=== PATIENT | female | born 1950 | race Caucasian/White ===

== ENCOUNTER 2017-04-25 09:56 | Outpatient (CLI) | payer OTHER ==
[2016-01-07 16:01] VITALS: BMI 37.8
--- NOTE | 2017-04-27 09:23 | MAMMO ---
EXAM: Bilateral digital screening mammogram Comparison: Bilateral mammogram 03/01/2016 History: Screening Findings: MLO and CC views of bilateral breasts demonstrate predominately fatty replaced breast par enchyma. Stable benign appearing bilateral breast nodules and bilateral breast lymph nodes. There a re no developing masses and no suspicious microcalcifications. Impression: Benign stable mammogram. Recommend followup routine screening mammography in 1 year. BIRADS 2
== END 2017-04-25 09:57 | disposition home or self-care (01) ==
LOC: RAD 09:56
PROVIDERS: ATTEND Internal Medicine
DX: Z12.31 Encounter for screening mammogram for malignant neoplasm of breast (principal)

== ENCOUNTER 2018-03-14 14:20 | Outpatient (POV) ==
[2016-01-07 16:01] VITALS: BMI 37.8
== END 2018-03-14 17:00 ==
LOC: OUTPT 14:20
PROVIDERS: ATTEND Otolaryngology
DX: H91.90 Unspecified hearing loss, unspecified ear (principal)

== ENCOUNTER 2018-03-28 08:45 | Outpatient (POV) | payer OTHER ==
[2016-01-07 16:01] VITALS: BMI 37.8
== END 2018-03-28 17:00 ==
LOC: OUTPT 08:45
PROVIDERS: ATTEND Otolaryngology
DX: H91.90 Unspecified hearing loss, unspecified ear (principal); H69.90 Unspecified Eustachian tube disorder, unspecified ear

== ENCOUNTER 2018-04-25 09:49 | Outpatient (CLI) ==
[2016-01-07 16:01] VITALS: BMI 37.8
--- NOTE | 2018-04-26 11:31 | MAMMO ---
EXAM: Bilateral digital screening mammogram (2-D and 3-D) History: Screening Comparison: Bilateral mammogram 04/25/2017 Findings: MLO and CC views of bilateral breasts demonstrate predominately fatty replaced breast pare nchyma. CAD was reviewed by the radiologist. Tomosynthesis was performed. Stable benign bilateral b reast nodules and lymph nodes. There are no developing masses. No suspicious microcalcifications an d no architectural distortions Impression: Benign stable mammogram. Recommend followup routine screening mammography in 1 year. BIRADS 2
== END 2018-04-25 09:50 | disposition home or self-care (01) ==
LOC: RAD 09:49
PROVIDERS: ATTEND Internal Medicine
DX: Z12.31 Encounter for screening mammogram for malignant neoplasm of breast (principal)
CPT/HCPCS: 77067

== ENCOUNTER 2019-01-16 09:15 | Outpatient (CLI) ==
[2016-01-07 16:01] VITALS: BMI 37.8
--- NOTE | 2019-01-16 09:56 | US ---
EXAM: ULTRASOUND LOWER EXTREMITY VENOUS DOPPLER EXAM HISTORY: Leg pain and swelling. FINDINGS: Left lower extremity venous Doppler exam. Real time strong-scale, Doppler spectral analysis and color-flow Doppler imaging performed. The veins targeted for evaluation include the common femo ral, greater saphenous, profundus, femoral, popliteal, peroneal, anterior tibial and posterior tibial . The evaluated veins demonstrated normal spontaneous flow and compression without evidence of thr ombosis. IMPRESSION: No venous thrombosis identified within the areas evaluated.
== END 2019-01-16 09:16 | disposition home or self-care (01) ==
LOC: RAD 09:15
PROVIDERS: ATTEND Internal Medicine
DX: M79.605 Pain in left leg (principal); M79.89 Other specified soft tissue disorders

== ENCOUNTER 2019-04-12 09:27 | Outpatient (CLI) ==
[2016-01-07 16:01] VITALS: BMI 37.8
--- NOTE | 2019-04-12 15:03 | DI ---
EXAM: KUB HISTORY: Back pain FINDINGS / IMPRESSION: Bowel gas pattern is within normal limits. No excessive fecal retention. T he rectal vault is clear. Organ shadows are within the limits. No suspicious calcifications or acut e bony finding.
== END 2019-04-12 09:28 | disposition home or self-care (01) ==
LOC: RAD 09:27
PROVIDERS: ATTEND Internal Medicine
DX: M54.9 Dorsalgia, unspecified (principal)

== ENCOUNTER 2019-04-30 08:20 | Outpatient (CLI) ==
[2016-01-07 16:01] VITALS: BMI 37.8
--- NOTE | 2019-04-30 09:37 | MAMMO ---
EXAM: Bilateral digital screening mammogram (2-D and 3-D) History: Screening Comparison: Bilateral mammogram 04/25/2018 Findings: MLO and CC views of bilateral breasts demonstrate predominately fatty replaced breast pare nchyma. CAD was reviewed by the radiologist. Tomosynthesis was performed. Stable benign bilateral breast nodules and lymph nodes. There are no developing masses, no suspicious microcalcifications an d no architectural distortions. Impression: Benign stable mammogram. Recommend followup routine screening mammography in 1 year. BI-RADS 2, benign
== END 2019-04-30 08:21 | disposition home or self-care (01) ==
LOC: RAD 08:20
PROVIDERS: ATTEND Internal Medicine
DX: Z12.31 Encounter for screening mammogram for malignant neoplasm of breast (principal)

== ENCOUNTER 2019-07-04 09:00 | Outpatient (RCR) ==
[2016-01-07 16:01] VITALS: BMI 37.8
--- NOTE | 2019-06-15 11:46 | RS.OPPTDN ---
Subjective Date of Note: 06/15/19 Visit #: 4 Number of visits approved by Insurance: na Date of Evaluation: 06/06/19 Payer Source: MEDICARE Treatment Diagnosis: Low back pain Current Subjective/complaints:: Patient reports treatments seem to be helping reduce her pain level. States she is working on HEP. Pain Assessment - Pain Description Pain Location: lowback Current Pain Intensity: 6-7/10 prior to, 4-5/10 following treatment - Treatment Modality: Electrical Stim Unattended Parameters/Method Applied: [id number] HVGC with right lowback current to 210p.v. and left to 175p.v. Patient Position: Sitting - Heat/Cryotherapy Treatment: Hot Pack (with Estim) Interventions - Exercise/Activities/Manual Therapy Exercises/Activities: Assisted with stretching of bilateral hamstrings, SKTC, DKTC, LTR, and heel cords. Limited piriformis stretching. Isometric glut sets, isometric hip flexion, and pelvic tilts. Began green theraband for resisted scap retraction. Total minutes of Exercise: 18mins Manual Therapy: NA HOME EXERCISE PROGRAM: HS, SKTC, DKTC, and LTR stretching. Isometric hip add, glut sets, pelvic tilts. Isometric hip flexion. Green theraband for resisted scap retraction. - Charges Timed Code Treatment Minutes: 18mins Total Treatment Time: 40mins Procedures billed for this date of service:: HP, Estim unattended, EX Assessment: Patient reporting progress with pain reduction. Patient Education: Body/Joint mechanics, Home Exercise Program Patient demonstrates compliance with HEP?: Yes Short Term Goals Goal #1: Pt independent in basic HEP. Goal to be met by: 06/21/19 Progress towards Goal:: Partially Met Goal #2: Muscle tone at lumbar paraspinals decreased to minimal. Goal to be met by: 06/21/19 Progress towards Goal:: Progressing Goal #3: Low back pain less than 7/10. Goal to be met by: 06/21/19 Progress towards Goal:: Progressing Goal #4: SLR bilaterally 45-50 degrees. Goal to be met by: 06/21/19 Value Stream Leader Goals Goal #1: Pt knows HEP and to continue ex's to maintain functional level at D/c. Goal to be met by: 07/27/19 Goal #2: Score on Oswestry LBP scale improved to 48. Goal to be met by: 07/27/19 Goal #3: Pt able to ambulate community distances with minimal low back pain. Goal to be met by: 07/27/19 Goal #4: Pt to perform light ADL's at home without low back pain. Goal to be met by: 07/27/19 Plan Dates of Value Stream Leader Goals: 07/27/19 Expiration date of current Insurance Approval:: 07/27/19 PLAN: Continue modalities and progress exercise to reduce pain and increase functional activity level.
--- NOTE | 2019-06-19 10:41 | RS.OPPTDN ---
Subjective Date of Note: 06/19/19 Visit #: 5 Number of visits approved by Insurance: na Date of Evaluation: 06/06/19 Payer Source: MEDICARE Treatment Diagnosis: Low back pain Current Subjective/complaints:: Patient reports seeing improvement in back pain since attending therapy. States she is working on HEP and is able to do more light activites in her home. Pain Assessment - Pain Description Pain Location: lowback and hips Current Pain Intensity: moderate - Treatment Modality: Electrical Stim Unattended Parameters/Method Applied: [id number] HVGC to 140p.v. with 4 large pads to each lumbar paraspinals with HP prior to EX. Patient Position: Sitting - Heat/Cryotherapy Treatment: Hot Pack (with Estim ) Interventions - Exercise/Activities/Manual Therapy Exercises/Activities: Assisted with stretching of bilateral hamstrings, SKTC, DKTC, LTR, heel cords, and piriformis stretching. Isometric glut sets, isometric hip flexion, and pelvic tilts. Alt hip flexion with abd sets. Reveiewd resisted scap retraction with green theraband. Patient given copy of HEP. Total minutes of Exercise: 18mins Manual Therapy: NA HOME EXERCISE PROGRAM: HS, SKTC, DKTC, and LTR stretching. Isometric hip add, glut sets, pelvic tilts. Isometric hip flexion. Green theraband for resisted scap retraction. Alt hip flexion with abd sets. - Charges Timed Code Treatment Minutes: 18mins Total Treatment Time: 42mins Procedures billed for this date of service:: HP, Estim unattended, EX Assessment: Patient reports improvement in pain and ability to perform light daily activities. Patient Education: Body/Joint mechanics, Home Exercise Program Patient demonstrates compliance with HEP?: Yes Short Term Goals Goal #1: Pt independent in basic HEP. Goal to be met by: 06/21/19 Progress towards Goal:: Met Goal #2: Muscle tone at lumbar paraspinals decreased to minimal. Goal to be met by: 06/21/19 Progress towards Goal:: Progressing Goal #3: Low back pain less than 7/10. Goal to be met by: 06/21/19 Progress towards Goal:: Progressing Goal #4: SLR bilaterally 45-50 degrees. Goal to be met by: 06/21/19 Sandwich Maker Goals Goal #1: Pt knows HEP and to continue ex's to maintain functional level at D/c. Goal to be met by: 07/27/19 Progress towards goal: Progressing Goal #2: Score on Oswestry LBP scale improved to 48. Goal to be met by: 07/27/19 Goal #3: Pt able to ambulate community distances with minimal low back pain. Goal to be met by: 07/27/19 Progress towards goal: Progressing Goal #4: Pt to perform light ADL's at home without low back pain. Goal to be met by: 07/27/19 Plan Dates of Sandwich Maker Goals: 07/27/19 Expiration date of current Insurance Approval:: 07/27/19 PLAN: Continue modalites and progress exercise to reduce pain and increase functional activity level.
--- NOTE | 2019-06-22 11:22 | RS.OPPTDN ---
Subjective Date of Note: 06/22/19 Visit #: 6 Number of visits approved by Insurance: na Date of Evaluation: 06/06/19 Payer Source: MEDICARE Treatment Diagnosis: Low back pain Current Subjective/complaints:: Patient reports some increase in back pain today. States she has been doing better overall, and is doing more light activities around her home. Pain Assessment - Pain Description Pain Location: lowback Current Pain Intensity: moderate, mild following treatment - Treatment Modality: Electrical Stim Unattended Parameters/Method Applied: [id number] HVGC to 175p.v. with 4 large pads to each lumbar parapsinal with HP prior to EX. Patient Position: Sitting - Heat/Cryotherapy Treatment: Hot Pack (with estim) Interventions - Exercise/Activities/Manual Therapy Exercises/Activities: Assisted with stretching of bilateral hamstrings, SKTC, DKTC, LTR, heel cords, and piriformis stretching. Isometric hip flexion and pelvic tilts. Alt hip flexion with abd sets. Began resisted hip abd in hook- lying with blue theraband. Patient given blue tband for HEP. Total minutes of Exercise: 19mins Manual Therapy: NA HOME EXERCISE PROGRAM: HS, SKTC, DKTC, and LTR stretching. Isometric hip add, glut sets, pelvic tilts. Isometric hip flexion. Green theraband for resisted scap retraction. Alt hip flexion with abd sets. - Charges Timed Code Treatment Minutes: 19mins Total Treatment Time: 43mins Procedures billed for this date of service:: HP, Estim unattended, EX Assessment: Patient has some increased discomfort today, but consistently reports progress. She has reported an increase in her ability to perform light daily activities around her home. This is important as the patient lives alone. Patient Education: Home Exercise Program, Activity Modification Comments: Patient education of safety with ADL's and light lifting. Patient demonstrates compliance with HEP?: Yes Short Term Goals Goal #1: Pt independent in basic HEP. Goal to be met by: 06/21/19 Progress towards Goal:: Met Goal #2: Muscle tone at lumbar paraspinals decreased to minimal. Goal to be met by: 06/21/19 Progress towards Goal:: Progressing Goal #3: Low back pain less than 7/10. Goal to be met by: 06/21/19 Progress towards Goal:: Partially Met Goal #4: SLR bilaterally 45-50 degrees. Goal to be met by: 06/21/19 Recordist Goals Goal #1: Pt knows HEP and to continue ex's to maintain functional level at D/c. Goal to be met by: 07/27/19 Progress towards goal: Progressing Goal #2: Score on Oswestry LBP scale improved to 48. Goal to be met by: 07/27/19 Goal #3: Pt able to ambulate community distances with minimal low back pain. Goal to be met by: 07/27/19 Progress towards goal: Progressing Goal #4: Pt to perform light ADL's at home without low back pain. Goal to be met by: 07/27/19 Plan Dates of Mcc Goals: 07/27/19 Expiration date of current Insurance Approval:: 07/27/19 PLAN: Continue modalities and progress exercise to reduce pain and increase functional activity level.
--- NOTE | 2019-06-26 12:01 | RS.OPPTDN ---
Subjective Date of Note: 06/26/19 Visit #: 7 Number of visits approved by Insurance: na Date of Evaluation: 06/06/19 Payer Source: MEDICARE Treatment Diagnosis: Low back pain Current Subjective/complaints:: Patient reports an exacerbation of pain since Tuesday, that radiates from the right LB into the upper posterior thigh. Pain Assessment - Pain Description Pain Location: right LB into mid gluteal region Current Pain Intensity: 7-8//10 Other Comments regarding Pain:: Reports pain decreased with modalities today. Minimal discomfort noted with ambulation in department. - Treatment Modality: Electrical Stim Unattended Parameters/Method Applied: [id number] HVGC to 175p.v. to the right S-I joint and across the lumbar paraspinals with HP. Patient Position: Sitting - Heat/Cryotherapy Treatment: Hot Pack (with Estim ) Interventions - Exercise/Activities/Manual Therapy Exercises/Activities: Discussion of exercise and patient agrees to hold at this time. She will rest today and resume gentle stretching later today. Manual Therapy: NA HOME EXERCISE PROGRAM: HS, SKTC, DKTC, and LTR stretching. Isometric hip add, glut sets, pelvic tilts. Isometric hip flexion. Green theraband for resisted scap retraction. Alt hip flexion with abd sets. - Charges Timed Code Treatment Minutes: 5mins Total Treatment Time: 25mins Procedures billed for this date of service:: HP, Darrin unattended Assessment: Patient reporting a flair-up of pain over the last 2 days. She will rest and resume exercise as tolerable later today or tomorrow. Patient Education: Body/Joint mechanics, Home Exercise Program Comments: Focus on safety and precautions with ADL's to avoid additonal flair- up of pain. Patient demonstrates compliance with HEP?: Yes Short Term Goals Goal #1: Pt independent in basic HEP. Goal to be met by: 06/21/19 Progress towards Goal:: Met Goal #2: Muscle tone at lumbar paraspinals decreased to minimal. Goal to be met by: 06/21/19 Progress towards Goal:: Progressing Goal #3: Low back pain less than 7/10. Goal to be met by: 06/21/19 Progress towards Goal:: Partially Met Goal #4: SLR bilaterally 45-50 degrees. Goal to be met by: 06/21/19 Halfway Goals Goal #1: Pt knows HEP and to continue ex's to maintain functional level at D/c. Goal to be met by: 07/27/19 Progress towards goal: Progressing Goal #2: Score on Oswestry LBP scale improved to 48. Goal to be met by: 07/27/19 Goal #3: Pt able to ambulate community distances with minimal low back pain. Goal to be met by: 07/27/19 Progress towards goal: Progressing Goal #4: Pt to perform light ADL's at home without low back pain. Goal to be met by: 07/27/19 Plan Dates of Halfway Goals: 07/27/19 Expiration date of current Insurance Approval:: 07/27/19 PLAN: Resume therapeutic exercise with patient next session.
--- NOTE | 2019-06-29 09:06 | RS.OPPTDN ---
Subjective Date of Note: 06/29/19 Visit #: 8 Number of visits approved by Insurance: na Date of Evaluation: 06/06/19 Payer Source: MEDICARE Treatment Diagnosis: Low back pain Current Subjective/complaints:: Patient reports back and right hip painis better today. States pain radiates into right gluteal area, but LE symptoms have improved. Pain Assessment - Pain Description Pain Location: lowback, right glut and hip Pain Description: Aching Current Pain Intensity: moderate, 5-6/10 - Treatment Modality: Electrical Stim Unattended Parameters/Method Applied: [id number] HVGC to the right S-I joint area and across the lower lumbar paraspinals to 175-180p.v, with HP prior to EX. Patient Position: Sitting - Heat/Cryotherapy Treatment: Hot Pack (with Estim ) Interventions - Exercise/Activities/Manual Therapy Exercises/Activities: Assisted stretching bilateral hamstrings, SKTC, piriformis. Isometric right hip ext and different angle of right hip flexion. Isometric left hip flexion. Reviewed pelvic tilt. Discussion of pelvic mechanics and need to continue stretching and MET for pelvic alignment. Patient education of body mechanics and safety with ADL's and light lifting at home. Total minutes of Exercise: 17mins Manual Therapy: NA HOME EXERCISE PROGRAM: HS, SKTC, DKTC, and LTR stretching. Isometric hip add, glut sets, pelvic tilts. Isometric hip flexion. Green theraband for resisted scap retraction. Alt hip flexion with abd sets. - Objective Findings Observations,measurements,etc.: Pt demos significant leg length discrepancy with right approx 1 inch longer than left. After MET this is reduced to approx 1 /4". - Charges Timed Code Treatment Minutes: 17mins Total Treatment Time: 44mins Procedures billed for this date of service:: HP, Estim unatteded, EX Assessment: Patient appears to have significant pelvic malalignment that is effecting pain and radicular symptoms. Patient Education: Body/Joint mechanics, Home Exercise Program, Home Safety, Activity Modification Patient demonstrates compliance with HEP?: Yes Short Term Goals Goal #1: Pt independent in basic HEP. Goal to be met by: 06/21/19 Progress towards Goal:: Met Goal #2: Muscle tone at lumbar paraspinals decreased to minimal. Goal to be met by: 06/21/19 Progress towards Goal:: Progressing Goal #3: Low back pain less than 7/10. Goal to be met by: 06/21/19 Progress towards Goal:: Partially Met Goal #4: SLR bilaterally 45-50 degrees. Goal to be met by: 06/21/19 Medical Physicist Goals Goal #1: Pt knows HEP and to continue ex's to maintain functional level at D/c. Goal to be met by: 07/27/19 Progress towards goal: Progressing Goal #2: Score on Oswestry LBP scale improved to 48. Goal to be met by: 07/27/19 Goal #3: Pt able to ambulate community distances with minimal low back pain. Goal to be met by: 07/27/19 Progress towards goal: Progressing Goal #4: Pt to perform light ADL's at home without low back pain. Goal to be met by: 07/27/19 Plan Dates of Medical Physicist Goals: 07/27/19 Expiration date of current Insurance Approval:: 07/27/19 PLAN: Continue modalities and progress exercise to reduce pain and increase functional activity level.
--- NOTE | 2019-07-04 13:22 | RS.OPPTDN ---
Subjective Date of Note: 07/04/19 Visit #: 9 Number of visits approved by Insurance: na Date of Evaluation: 06/06/19 Payer Source: MEDICARE Treatment Diagnosis: Low back pain Current Subjective/complaints:: Patient reports she is not seeing much change in progress with her pain relief the last few visits. States that overall, her pain has stopped worsening and she is more mobile. She reports pain is moderate at times, which is improvement. She reports Estim helps reduce her pain for several hours and she will continue HEP as instructed. Pain Assessment - Pain Description Pain Location: lowback and right gluteal area Pain Description: Aching Current Pain Intensity: 4/10 Worst Pain Intensity: 7/10 - Treatment Modality: Electrical Stim Unattended Parameters/Method Applied: [id number] HVGC to 165-175p.v. to the right gluteal area and across lowback with HP prior to EX. Patient Position: Sitting - Heat/Cryotherapy Treatment: Hot Pack (with Estim ) Interventions - Exercise/Activities/Manual Therapy Exercises/Activities: Assisted stretching bilateral hamstrings, SKTC, piriformis. Isometric right hip ext and isometric left hip flexion. Pelvic tilt. Discussion of progression of pelvic stability exercise and body mechanics with ADL's. Total minutes of Exercise: 19mins Manual Therapy: NA HOME EXERCISE PROGRAM: HS, SKTC, DKTC, and LTR stretching. Isometric hip add, glut sets, pelvic tilts. Isometric hip flexion. Green theraband for resisted scap retraction. Alt hip flexion with abd sets. - Objective Findings Observations,measurements,etc.: Patient with min progress on FOM of Oswestry LBP Scale at 33 or 66% deficit (35 or 70% on Eval) - Charges Timed Code Treatment Minutes: 19mins Total Treatment Time: 42mins Procedures billed for this date of service:: HP, Estim unattended, EX Assessment: Patient has made minimal progress and feels she may be at a standstill at this time. She will continue HEP and follow-up with physician. Patient Education: Body/Joint mechanics, Home Exercise Program, Activity Modification Patient demonstrates compliance with HEP?: Yes Short Term Goals Goal #1: Pt independent in basic HEP. Goal to be met by: 06/21/19 Progress towards Goal:: Met Goal #2: Muscle tone at lumbar paraspinals decreased to minimal. Goal to be met by: 06/21/19 Progress towards Goal:: Progressing Goal #3: Low back pain less than 7/10. Goal to be met by: 06/21/19 Progress towards Goal:: Partially Met Goal #4: SLR bilaterally 45-50 degrees. Goal to be met by: 06/21/19 Progress towards Goal:: Not Met Intermediate Goals Goal #1: Pt knows HEP and to continue ex's to maintain functional level at D/c. Goal to be met by: 07/27/19 Progress towards goal: Met Goal #2: Score on Oswestry LBP scale improved to 48. Goal to be met by: 07/27/19 Progress towards goal: Progressing Goal #3: Pt able to ambulate community distances with minimal low back pain. Goal to be met by: 07/27/19 Progress towards goal: Progressing Goal #4: Pt to perform light ADL's at home without low back pain. Goal to be met by: 07/27/19 Plan Dates of Intermediate Goals: 07/27/19 Expiration date of current Insurance Approval:: 07/27/19 PLAN: Discharge with HEP.
--- NOTE | 2019-07-10 09:44 | RS.OPPTDC ---
Date of Discharge: 07/10/19 Date of Evaluation: 06/06/19 Number of Visits: 9 Treatment Diagnosis: Low back pain Current Complaints/Gains: Patient reports pain is getting worse. States she is having days when pain is as bad as 6-7/10. On last visit, patient reported pain 4-5/10. Pain Assessment - Pain Description Pain Location: low back Current Pain Intensity: 4-5/10 Functional Outcome Measure Oswestry LBP: 66 - G Codes & Severity Modifier G Codes & Modifier: NA Source of G Code score: Na Interventions - Exercise/Activities/Manual Therapy Exercises/Activities: NA Manual Therapy: NA HOME EXERCISE PROGRAM: HS, SKTC, DKTC, and LTR stretching. Isometric hip add, glut sets, pelvic tilts. Isometric hip flexion. Green theraband for resisted scap retraction. Alt hip flexion with abd sets. - Charges Timed Code Treatment Minutes: NA Total Treatment Time: NA Procedures billed for this date of service:: NA Assessment Assessment: Patient has only made progress with goals related to HEP. Therapy sessions consisted of modalities to the low back and stretching and stability exercises. She reports worsening back pain. Pain as high as 6-7/10 on some days. Therapy stopped due to lack of progress. Short Term Goals Goal #1: Pt independent in basic HEP. Goal to be met by: 06/21/19 Progress towards Goal:: Met Goal #2: Muscle tone at lumbar paraspinals decreased to minimal. Goal to be met by: 06/21/19 Progress towards Goal:: Not Met Goal #3: Low back pain less than 7/10. Goal to be met by: 06/21/19 Progress towards Goal:: Not Met Goal #4: SLR bilaterally 45-50 degrees. Goal to be met by: 06/21/19 Progress towards Goal:: Not Met Veneer Supervisor Goals Goal #1: Pt knows HEP and to continue ex's to maintain functional level at D/c. Goal to be met by: 07/27/19 Progress towards goal: Met Goal #2: Score on Oswestry LBP scale improved to 48. Goal to be met by: 07/27/19 Progress towards goal: Not Met Goal #3: Pt able to ambulate community distances with minimal low back pain. Goal to be met by: 07/27/19 Progress towards goal: Not Met Goal #4: Pt to perform light ADL's at home without low back pain. Goal to be met by: 07/27/19 Progress towards goal: Not Met Plan Reason for Discharge:: Lack of Progress
== END 2019-07-14 23:59 ==
PROVIDERS: ATTEND Orthopaedic Surgery Orthopaedic Surgery of the Spine
DX: M47.816 Spondylosis without myelopathy or radiculopathy, lumbar region (principal); M54.16 Radiculopathy, lumbar region

== ENCOUNTER 2019-08-12 07:07 | Inpatient (IN) ==
--- NOTE | 2019-08-12 08:11 | ED.PDOC ---
General ED Provider: Dr. TIAN VALIENTE Chief Complaint: Back Pain Stated Complaint: Low back pain.Awakened with intense pain lt > Rt LS region. NO RELIEF with NORCO Time Seen by Physician: 08:00 Mode of Arrival: Wheelchair Information Source: Patient Exam Limitations: No limitations Primary Care Provider: TEZ FREEMAN Nursing and Triage Documentation Reviewed and Agree: Yes Does patient meet sepsis criteria?: No System Inflammatory Response Syndrome: Not Applicable Sepsis Protocol: For patient's 13 years and over: Temp is 96.8 and below OR 101 and greater Pulse >90 BPM Resp >20/minute Acutely Altered Mental Status Are patient's symptoms suggestive of a new infection, such as: -Pneumonia -Skin, Soft Tissue -Endocarditis -UTI -Bone, Joint Infection -Implantable Device -Acute Abdominal Infection -Wound Infection -Meningitis -Blood Stream Catheter Infection -Unknown Musculoskeletal Complaint Exam - Back Pain Complaint/Exam Mechanism of Injury: Reports: No known trauma Onset/Duration: This AM Symptoms Are: Worse Timing: Intermittent Episodes Lasting: Minutes Initial Severity: Moderate Current Severity: Moderate Location: Reports: Discrete, Radiating Character: Reports: Aching, Spasmodic, Stiffness Aggravating: Reports: Movements, Bending Alleviating: Reports: None Associated Signs and Symptoms: Reports: Weakness, Pain with weight bearing Related History: Reports: Similar episode TAD Risk Factors: Reports: None AAA Risk Factors: Reports: None Cauda Equina Risk Factors: Reports: None Epidural Abcess Risk Factors: Reports: None Related Surgical History: Reports: None Focal Tenderness: Yes (Lt SI) Paraspinal Muscle Tenderness: Yes Paraspinal Muscle Spasm: Yes Scoliosis: No Lordosis: No Kyphosis: No SLR Test: Right Negative, Left Positive Focal Weakness: Present: None Focal Sensory Loss: Present: None Gait: Present: Unsteady Differential Diagnoses: Herniated Disk, Strain Review of Systems - Review Of Systems Constitutional: Reports: No symptoms Eyes: Reports: No symptoms Ears, Nose, Mouth, Throat: Reports: No symptoms Respiratory: Reports: No symptoms Cardiac: Reports: No symptoms GI: Reports: No symptoms : Reports: No symptoms Musculoskeletal: Reports: No symptoms Skin: Reports: No symptoms Neurological: Reports: No symptoms Endocrine: Reports: No symptoms Hematologic/Lymphatic: Reports: No symptoms All Other Systems: Reviewed and Negative Past Medical History - Past Medical History Endocrine: Reports: Dyslipidemia Cardiovascular: Reports: Hypertension, CHF, A-Fib Respiratory: Reports: COPD Hematological: Reports: None Gastrointestinal: Reports: None Genitourinary: Reports: None Neuro/Psych: Reports: None Musculoskeletal: Reports: Arthritis, Other (Lumbar herniated disc) Cancer: Reports: None Last Menstrual Period: n/a Other Pertinent Past Medical History: htn chol chf afib copd arthr - Surgical History General Surgical History: Reports: Cholecystectomy, Other (CARDIAC ABLASION FOR AFIB) - Family History Family History: Reports: Unknown - Social History Smoking Status: Never smoker Hx Substance Use: No Alcohol Screening: None Physical Exam - Physical Exam Appearance: Ill-appearing, Obese Ill-appearing: Moderate Pain Distress: Moderate Eyes: [place], EOMI, Conjunctiva clear ENT: Ears normal, Nose normal, Oropharynx normal Neck: Supple Respiratory: Airway patent, Breath sounds clear, Breath sounds equal, Respirations nonlabored Cardiovascular: RRR, Pulses normal, No rub, No murmur GI/: Soft, Nontender, No masses, Bowel sounds normal, No Organomegaly Musculoskeletal: Limited ROM Skin: Warm, Dry, Normal color Neurological: Sensation intact, Motor intact, Reflexes intact, Cranial nerves intact, Alert, Oriented Psychiatric: Affect appropriate Interpretation - Radiology Interpretation Radiology Interpretation By: Radiologist Radiology Results: No acute changes Exam Interpreted: CT Scan (Lumbar Spine-Multi level deg disc diseas and arthritis-no acute changes) Physician Notification - Case Discussed Physician Notified: Dr Freeman Time of Notification: 10:40 (Admit for intractable low back pain) Critical Care Note - Critical Care Note Total Time (mins): 30 Course - Course Hematology/Chemistry: 08/12/19 08:30 08/12/19 08:30 Orders, Labs, Meds: Lab Review 08/12/19 08/12/19 08/12/19 08:30 08:30 10:45 WBC 10.43 H RBC 4.22 Hgb 12.3 Hct 38.6 MCV 91.5 MCH 29.1 MCHC 31.9 RDW Coeff of Vel 13.6 Plt Count 215 Immature Gran % (Auto) 0.4 Neut % (Auto) 73.1 Lymph % (Auto) 16.5 [place] % (Auto) 6.0 Eos % (Auto) 3.5 Baso % (Auto) 0.5 Immature Gran # (Auto) 0.0 Neut # (Auto) 7.6 H Lymph # (Auto) 1.7 [place] # (Auto) 0.6 Eos # (Auto) 0.4 Baso # (Auto) 0.1 Sodium 137.4 Potassium 4.46 Chloride 105.8 Carbon Dioxide 26.6 Anion Gap 9.46 BUN 7.6 Creatinine 0.66 Estimated GFR (MDRD) 89.00 BUN/Creatinine Ratio 11.51 Glucose 111.4 H Calcium 8.98 Total Bilirubin 0.88 AST 18.4 ALT 16.0 Alkaline Phosphatase 139.4 Total Creatine Kinase 26.5 L Total Protein 6.53 Albumin 3.66 Globulin 2.87 Albumin/Globulin Ratio 1.27 Urine Color Yellow Urine Clarity Clear Urine pH 6.0 Ur Specific [place] 1.010 Urine Protein Negative Urine Glucose (UA) Negative Urine Ketones Negative Urine Blood Negative Urine Nitrite Negative Urine Bilirubin Negative Urine Urobilinogen 0.2 Ur Leukocyte Esterase Trace Urine Microscopic RBC 0-2 Urine Microscopic WBC 0-2 Ur Squamous Epith Cells 0-2 Orders Category Date Time Status CBC W/ AUTO DIFF Stat LAB 08/12/19 08:30 Completed CMP [COMPREHENSIVE METABOLIC PANEL] Stat LAB 08/12/19 08:30 Completed CPK [CREATINE KINASE] Stat LAB 08/12/19 08:30 Completed UA [URINALYSIS C & S IF INDICATED] Stat LAB 08/12/19 10:45 Completed Methylprednisolone Sod Succ/Pf [Solu-Medrol 125 mg] MEDS 08/12/19 08:42 Discontinued 125 mg IM ONCE STA Nalbuphine HCl [Nubain] MEDS 08/12/19 08:42 Discontinued 10 mg IM ONCE STA Orphenadrine Citrate [Norflex] MEDS 08/12/19 09:33 Discontinued 60 mg IM ONCE STA CT LUMBAR SPINE W/O CONTRAST Stat RADS 08/12/19 08:15 Completed Medications Discontinued Medications Generic Name Dose Route Start Last Admin Trade Name Freq PRN Reason Stop Dose Admin Methylprednisolone Sodium Succinate 125 mg 08/12/19 08:42 08/12/19 09:12 Solu-Medrol 125 Mg IM 08/12/19 08:43 125 mg ONCE STA Administration Nalbuphine HCl 10 mg 08/12/19 08:42 08/12/19 09:11 Nubain IM 08/12/19 08:43 10 mg ONCE STA Administration Orphenadrine Citrate 60 mg 08/12/19 09:33 08/12/19 09:45 Norflex IM 08/12/19 09:34 60 mg ONCE STA Administration Vital Signs: Temp Pulse Resp BP Pulse Ox 08/12/19 07:07 97.2 F L 62 16 156/83 H 94 L Departure - Departure Time of Disposition: 11:00 Disposition: ADMITTED INPATIENT Discharge Problem: Intractable low back pain Condition: Stable Pt referred to PMD for follow-up: Yes IPMP verified?: No Prescriptions: Orphenadrine Citrate [Norflex] 100 mg PO Q12HR #20 tablet.er Allergies/Adverse Reactions: Allergies morphine Adverse Reaction (Verified 08/12/19 07:12) Home Medications: Ambulatory Orders Nitroglycerin [Nitrostat] 1 tab SL Q5MIN X 3 DOSES PRN 05/31/14 Lorazepam [Ativan] 1 mg PO BEDTIME PRN 10/16/14 Albuterol Sulfate [Proair Respiclick] 90 mcg IH DAILY PRN 01/07/16 Apixaban [Eliquis] 5 mg PO BID 01/07/16 Atorvastatin Calcium [Lipitor] 40 mg PO DAILY 01/07/16 Flecainide Acetate 200 mg PO DAILY 07/30/16 Hydrocodone/Acetaminophen [[place] 7.5-325 Tablet] 1 tab PO BID 07/30/16 Carvedilol [Coreg] 12.5 mg PO BIDAC 08/02/16 Triamterene/Hydrochlorothiazid [Dyazide] 1 cap PO EVERY OTHER DAY 08/02/16 Ofloxacin 5 ml OP BID 07/31/19 Lorazepam [Ativan] 0.5 mg PO PRN PRN 08/12/19 Orphenadrine Citrate [Norflex] 100 mg PO Q12HR #20 tablet.er 08/12/19 Disposition Discussed With: Patient, Family, Other (Dr Freeman)
[2019-08-12] MEDS ORDERED: SOLU-MEDROL 125 MG IM STA (08:42)
[2019-08-12] MEDS ORDERED: NUBAIN IM STA (08:42)
--- NOTE | 2019-08-12 08:59 | CT ---
EXAM: CT of the lumbar spine without contrast dated 08/12/2019. Clinical history: Back pain. Technique: Multiple axial images were obtained through the lumbar spine without contrast. Sagittal and coronal reformats were obtained. FINDINGS: Straightening of the normal lordosis is seen. Multilevel degenerative changes are seen wi th anterior spurring. No acute fractures or subluxations are seen. Intervertebral disc spaces are r elatively well maintained. Facet joint arthropathy is seen at each level. No significant spinal can al stenosis or neural foraminal stenosis is seen. Impression: Multilevel degenerative change with no acute findings
[2019-08-12] MEDS ORDERED: NORFLEX IM STA (09:33)
[2019-08-12] MEDS ORDERED: NORFLEX PO STA (10:36)
[2019-08-12] MEDS ORDERED: SODIUM CHLORIDE 1,000 ML IV ONE (11:06)
[2019-08-12] MEDS ORDERED: DILAUDID 1 MG/ML SYRINGE IVP STA (11:07)
[2019-08-12] MEDS ORDERED: VALIUM PO STA (11:08)
[2019-08-12] MEDS ORDERED: TYLENOL PO PRN (11:15)
[2019-08-12] MEDS ORDERED: NITROSTAT SL PRN (11:22)
[2019-08-12] MEDS ORDERED: PROAIR HFA IH PRN (12:00)
[2019-08-12] MEDS: ELIQUIS PO SCH ×2 (12:10→20:46)
[2019-08-12] MEDS: COREG PO SCH ×2 (12:11→16:55)
[2019-08-12] MEDS: SOLU-MEDROL 125 MG IVP SCH ×2 (12:11→20:46)
[2019-08-12] MEDS: PERCOCET 5-325 PO SCH ×2 (12:14→19:13)
[2019-08-12 12:17] VITALS: BMI 37.7
[2019-08-12] MEDS: LIPITOR PO SCH (16:56)
[2019-08-12] MEDS: DILAUDID 1 MG/ML SYRINGE IVP PRN (23:21)
[2019-08-13] MEDS: PERCOCET 5-325 PO SCH ×5 (00:30→23:01)
[2019-08-13] MEDS: SOLU-MEDROL 125 MG IVP SCH ×3 (04:38→21:00)
[2019-08-13] MEDS: DILAUDID 1 MG/ML SYRINGE IVP PRN (04:39)
[2019-08-13] MEDS: COREG PO SCH ×2 (08:43→16:58)
[2019-08-13] MEDS: TAMBOCOR PO SCH (08:44)
[2019-08-13] MEDS: ELIQUIS PO SCH ×2 (08:44→21:00)
[2019-08-13] MEDS ORDERED: ATIVAN PO PRN ×2 (08:46→08:49)
[2019-08-13] MEDS: ZANAFLEX PO SCH ×2 (08:55→20:59)
--- NOTE | 2019-08-13 09:05 | PCM.PROG ---
Attending Provider: ATTENDING PROVIDER: Dr. TEZ FREEMAN This patient is seen with Melissa Ann, Nurse Practitioner. DATE OF SERVICE: 08/13/19 SUBJECTIVE: This 68 year old WHITE/ F was hospitalized 08/12/19. The patient states that pain has improved, still 6 on a scale of 1 to 10 and it has been 10. Pain described as constant and sharp. REVIEW OF SYSTEMS: CONSTITUTIONAL: No night sweats. No fatigue, malaise, lethargy. No fever or chills. HEENT: Eyes: No visual changes. No eye pain. No eye discharge. ENT: No runny nose. No epistaxis. No sinus pain. No odynophagia. No congestion. RESPIRATORY: No cough, no congestion. No hemoptysis. No shortness of breath. CARDIOVASCULAR: No angina symptoms. No CHF symptoms. No atypical chest pain for CAD. No palpitations. No orthopnea.. GASTROINTESTINAL: No abdominal pain. No nausea or vomiting. No diarrhea or constipation. No hematemesis. No hematochezia. GENITOURINARY: No urgency. No frequency. No dysuria. No hematuria. No obstructive symptoms. No discharge. No pain. No significant abnormal bleeding. MUSCULOSKELETAL: No musculoskeletal pain; no joint swelling. Low back pain with radiation down left leg. NEUROLOGICAL: Awake, alert, oriented to time, place and person. No headache. No neck pain. No syncope. No seizures. No dizziness. PSYCHIATRIC: Not anxious. No depression. No suicidal thoughts. No homicidal thoughts. SKIN: No rash. No lesions. No wounds. ENDOCRINE: No unexplained weight loss. No weight gain. HEMATOLOGIC/LYMPHATIC: No anemia. No purpura. No petechiae. No prolonged or excessive bleeding. No palpable lymph nodes. PHYSICAL EXAMINATION: GENERAL: The patient is awake, alert and oriented, lying/sitting in bed in no distress. VITAL SIGNS: Temperature 98.4 F, Pulse 82, Respiratory Rate 18, BP 131/75, Pulse Ox 92% HEENT: Head normocephalic, atraumatic. Eyes: Extraocular muscles are intact. Pupils are equal, round and reactive to light and accommodation. Ears: No lesions. Nose appeared normal. Throat: No exudate or erythema. NECK: Supple. No JVD, no carotid bruit. No lymphadenopathy or thyromegaly. LUNGS: Diminished breath sounds. Clear to auscultation. Percussion note normal. Chest symmetrical. HEART: S1, S2, no S3. No murmurs. No cyanosis or clubbing. No ascites. Pulses: Dorsalis pedis and posterior tibial pulses +1 to +2 both sides. ABDOMEN: Soft. Non-tender. Bowel sounds active. No CVA tenderness. No mass felt. EXTREMITIES: No edema. Full range of motion of all extremities, equal. Left SI joint tenderness. NEUROLOGIC: No focal deficit. Cranial nerves II through XII are grossly intact. No headache, no double vision or headache. SKIN: Not dry. Intact. Turgor-normal. LYMPHATIC: No palpable lymph nodes/no lymphedema. MUSCULOSKELETAL: Normal joints with no swelling. Muscle tone is normal. LAB REVIEW: 08/13/19 04:10 08/13/19 04:10 08/13/19 04:10: Sodium 139.2, Potassium 4.03, Chloride 105.6, Carbon Dioxide 29.6, Anion Gap 8.03, BUN 8.5, Creatinine 0.67, Estimated GFR (MDRD) 87.00, BUN/ Creatinine Ratio 12.68, Glucose 193.5 H D, Calcium 9.22, Total Bilirubin 0.47, AST 17.2, ALT 17.2, Alkaline Phosphatase 144.5 H, Total Protein 7.00, Albumin 3.67, Globulin 3.33, Albumin/Globulin Ratio 1.10 08/13/19 04:10: WBC 11.35 H, RBC 4.43, Hgb 12.6, Hct 39.9, MCV 90.1, MCH 28.4, MCHC 31.6 L, RDW Coeff of Vel 13.4, Plt Count 212, Immature Gran % (Auto) 0.8, Neut % (Auto) 90.6, Lymph % (Auto) 7.1 L, [place] % (Auto) 1.4, Eos % (Auto) 0.0, Baso % (Auto) 0.1, Immature Gran # (Auto) 0.1, Neut # (Auto) 10.3 H, Lymph # ( Auto) 0.8, [place] # (Auto) 0.2 L, Eos # (Auto) 0.0, Baso # (Auto) 0.0 08/12/19 10:45: Urine Color Yellow, Urine Clarity Clear, Urine pH 6.0, Ur Specific [place] 1.010, Urine Protein Negative, Urine Glucose (UA) Negative, Urine Ketones Negative, Urine Blood Negative, Urine Nitrite Negative, Urine Bilirubin Negative, Urine Urobilinogen 0.2, Ur Leukocyte Esterase Trace, Urine Microscopic RBC 0-2, Urine Microscopic WBC 0-2, Ur Squamous Epith Cells 0-2 08/12/19 08:35: Uric Acid 7.51 H 08/12/19 08:35: ESR 74 H 08/12/19 08:30: Sodium 137.4, Potassium 4.46, Chloride 105.8, Carbon Dioxide 26.6, Anion Gap 9.46, BUN 7.6, Creatinine 0.66, Estimated GFR (MDRD) 89.00, BUN/ Creatinine Ratio 11.51, Glucose 111.4 H, Calcium 8.98, Total Bilirubin 0.88, AST 18.4, ALT 16.0, Alkaline Phosphatase 139.4, Total Creatine Kinase 26.5 L, Total Protein 6.53, Albumin 3.66, Globulin 2.87, Albumin/Globulin Ratio 1.27 08/12/19 08:30: WBC 10.43 H, RBC 4.22, Hgb 12.3, Hct 38.6, MCV 91.5, MCH 29.1, MCHC 31.9, RDW Coeff of Vel 13.6, Plt Count 215, Immature Gran % (Auto) 0.4, Neut % (Auto) 73.1, Lymph % (Auto) 16.5, [place] % (Auto) 6.0, Eos % (Auto) 3.5, Baso % (Auto) 0.5, Immature Gran # (Auto) 0.0, Neut # (Auto) 7.6 H, Lymph # ( Auto) 1.7, [place] # (Auto) 0.6, Eos # (Auto) 0.4, Baso # (Auto) 0.1 ASSESSMENT: Please see below. 1. Acute intractable lower back pain 2. Lumbar radiculopathy 3. Atrial fibrillation PLAN: 1. Continue Dilaudid PRN 2. Percocet scheduled 3. Zanaflex 4mg BID PO. Plan and coordination of the patient's care discussed in the presence of [employer] Operator and nurse. SCRIBED BY: Goldie ALCANTAR scribed while in presence of service performed by Dr. Freeman/Melissa Ann APRN on 08/13/19 ([id number])
--- NOTE | 2019-08-13 13:11 | PN ---
DATE OF SERVICE: 08/12/19 SUBJECTIVE: The patient was seen and examined after being admitted through the emergency room by Dr. Wetzel. The patient's main problem is severe back pain, inability to walk. The patient was almost crying. The pain was 10/10 on a scale of 1:10. The patient, in the emergency room, was given Methylprednisolone IV along with 10 mg of Nubain. The patient is now admitted and is going to be given Methylprednisolone along with Dilaudid 1 to 2 mg every four hourly. When I examined the patient in the room, the patient was feeling better, comfortable, watching TV but still had pain on movement. When she was in the bed the pain had practically been under control. The patient denies any falls. She has MRI of the L-spine scheduled at [facility] next week. REVIEW OF SYSTEMS: CONSTITUTIONAL: No night sweats. No fatigue, malaise, lethargy. No fever or chills. HEENT: Eyes: No visual changes. No eye pain. No eye discharge. ENT: No runny nose. No epistaxis. No sinus pain. No sore throat. No odynophagia. No congestion. RESPIRATORY: No cough, no congestion. No hemoptysis. No shortness of breath. CARDIOVASCULAR: No angina symptoms. No CHF symptoms. No atypical chest pain for CAD. No palpitations. No PND. No orthopnea. GASTROINTESTINAL: No abdominal pain. No nausea or vomiting. No diarrhea or constipation. No hematemesis. No hematochezia. GENITOURINARY: No urgency. No frequency. No dysuria. No hematuria. No obstructive symptoms. No discharge. No pain. No significant abnormal bleeding. MUSCULOSKELETAL: Back pain. NEUROLOGICAL: No headache. No neck pain. No syncope. No seizures. No dizziness. PSYCHIATRIC: Not anxious. No depression. No suicidal thoughts. No homicidal thoughts. SKIN: No rash. No lesions. No wounds. ENDOCRINE: No unexplained weight loss. No weight gain. HEMATOLOGIC/LYMPHATIC: No anemia. No purpura. No petechiae. No prolonged or excessive bleeding. No palpable lymph nodes. PHYSICAL EXAMINATION: HEENT: Head normocephalic, atraumatic. Eyes: Extraocular muscles are intact. Pupils are equal, round and reactive to light and accommodation. Ears: No lesions. Nose appeared normal. Throat: No exudate or erythema. NECK: Supple. No JVD, no carotid bruit. No lymphadenopathy or thyromegaly. LUNGS: Clear to auscultation. Percussion note normal. Chest symmetrical. HEART: S1, S2, no S3. No murmurs. No cyanosis or clubbing. No ascites. Pulses: Dorsalis pedis and posterior tibial pulses +1 to +2 bilaterally. ABDOMEN: Soft. Nontender. Bowel sounds active. No CVA tenderness. No mass felt. EXTREMITIES: No edema. Full range of motion of all extremities, equal. NEUROLOGIC: No focal deficit. Cranial nerves II through XII are grossly intact. No headache, no double vision or headache. SKIN: Not dry. Intact. Turgor - normal. LYMPHATIC: No palpable lymph nodes/no lymphedema. MUSCULOSKELETAL: Normal joints with no swelling. Muscle tone is normal. CT scan of the L-spine showed DJD of the spine. ASSESSMENT: 1. Spinal stenosis with bilateral sciatica. 2. Chronic lung disease. PLAN: Continue IV Dilaudid along with Methylprednisolone and add antiinflammatory agent. The patient is on Novel blood thinners so we have to be careful about it. She is on Eliquis for atrial fibrillation. Condition is otherwise stable. TIME SPENT: More than 30 minutes. Plan and coordination of the patient's care discussed in the presence of nurse. JONATHAN
[2019-08-13] MEDS: LIPITOR PO SCH (16:58)
[2019-08-14] MEDS: PERCOCET 5-325 PO SCH ×4 (17:23→22:37)
[2019-08-14] MEDS: COREG PO SCH ×2 (17:23→19:50)
[2019-08-14] MEDS: LIPITOR PO SCH (17:23)
[2019-08-14] MEDS: DYAZIDE PO SCH (19:50)
[2019-08-14] MEDS: ELIQUIS PO SCH ×2 (19:50→21:29)
[2019-08-14] MEDS: COLACE PO SCH (19:50)
[2019-08-14] MEDS: TAMBOCOR PO SCH (19:51)
[2019-08-14] MEDS: SOLU-MEDROL 125 MG IVP SCH ×2 (19:51→21:28)
[2019-08-14] MEDS: ZANAFLEX PO SCH ×2 (19:53→21:28)
[2019-08-15] MEDS: SOLU-MEDROL 125 MG IVP SCH (05:06)
[2019-08-15] MEDS: PERCOCET 5-325 PO SCH ×4 (05:06→23:18)
--- NOTE | 2019-08-15 08:20 | HP ---
DATE OF SERVICE: 08/12/19 HISTORY OF PRESENT ILLNESS: The patient is a 68-year-old white female who presents to the emergency room with acute low back pain. She awakened with intense pain, worse on the left side radiating down her leg. She does take [place] at home, which this is providing no relief. CT of the L-spine showed marked degenerative disease. PAST MEDICAL HISTORY: Dyslipidemia Hypertension CHF Atrial fibrillation - she is on Xarelto COPD Polyarthritis Chronic back pain Anxiety Hypertension Insomnia PAST SURGICAL HISTORY: Cholecystectomy Cardiac ablation for atrial fibrillation REVIEW OF SYSTEMS: CONSTITUTIONAL: No night sweats. No fatigue, malaise, lethargy. No fever or chills. HEENT: Eyes: No visual changes. No eye pain. No eye discharge. ENT: No runny nose. No epistaxis. No sinus pain. No sore throat. No odynophagia. No ear pain. No congestion. RESPIRATORY: No cough, no congestion. No hemoptysis. No shortness of breath. CARDIOVASCULAR: No angina symptoms. No CHF symptoms. No atypical chest pain for CAD. No palpitations. No PND. No orthopnea. GASTROINTESTINAL: No abdominal pain. No nausea or vomiting. No diarrhea or constipation. No hematemesis. No hematochezia. GENITOURINARY: No urgency. No frequency. No dysuria. No hematuria. No obstructive symptoms. No discharge. No pain. No significant abnormal bleeding. MUSCULOSKELETAL: Positive for intractable back pain. NEUROLOGICAL: No headache. No neck pain. No syncope. No seizures. No dizziness. PSYCHIATRIC: Not anxious. No depression. No suicidal thoughts. No homicidal thoughts. SKIN: No rash. No lesions. No wounds. ENDOCRINE: No unexplained weight loss. No weight gain. HEMATOLOGIC/LYMPHATIC: No anemia. No purpura. No petechiae. No prolonged or excessive bleeding. No palpable lymph nodes. PERSONAL/FAMILY/SOCIAL HISTORY: She is a nonsmoker. No alcohol or ilicit drug use. She is but lives with a radio electronics officer. MEDICATIONS: Nitroglycerin 0.4 mg one tab SL q.5 min times three doses p.r.n. Ativan 1 mg p.o. daily p.r.n. Lipitor 40 mg p.o. daily Eliquis 5 mg p.o. b.i.d. Albuterol (Proair Respiclick) 90 mcg IH daily p.r.n. Hydrocodone/Acetaminophen one tab p.o. b.i.d. Flecainide 200 mg p.o. daily Triamterene/Hydrochlorothiazide (Dyazide) one cap p.o. every other day Carvedilol 12.5 mg p.o. b.i.d. a.c. ALLERGIES: MORPHINE PHYSICAL EXAMINATION: VITAL SIGNS: Temperature 97.2, heart rate 62, respirations 16, blood pressure 156/83, pulse ox 94%. HEENT: Head normocephalic, atraumatic. Eyes: Extraocular muscles are intact. Pupils are equal, round and reactive to light and accommodation. Ears: No lesions. Nose appeared normal. Throat: No exudate or erythema. NECK: Supple. No JVD, no carotid bruit. No lymphadenopathy or thyromegaly. LUNGS: Clear to auscultation. Percussion note normal. Chest symmetrical. HEART: Diminished breath sounds. Irregular heart rate consistent with atrial fibrillation. S1, S2, no S3. No murmurs. No cyanosis or clubbing. No ascites. Pulses: Dorsalis pedis and posterior tibial pulses +1 to +2 bilaterally. ABDOMEN: Soft. Nontender. Bowel sounds active. No CVA tenderness. No mass felt. EXTREMITIES: Left SI joint tenderness. No edema. Full range of motion of all extremities, equal. NEUROLOGIC: No focal deficit. Cranial nerves II through XII are grossly intact. No headache, no double vision or headache. SKIN: Not dry. Intact. Turgor - normal. LYMPHATIC: No palpable lymph nodes/no lymphedema. MUSCULOSKELETAL: Normal joints with no swelling. Muscle tone is normal. LAB DATA: [place] count 10.4, hemoglobin 12.3, hematocrit 38.6, platelets 215. Sodium 137, potassium 4.4, BUN 7.6, creatinine 0.66, glucose 111. Urine was normal. ASSESSMENT: 1. INTRACTABLE LOW BACK PAIN. 2. MULTILEVEL DEGENERATIVE DISK DISEASE IN THE L-SPINE. 3. HYPERTENSION. 4. HISTORY OF ATRIAL FIBRILLATION. PLAN: 1. We will admit with routine telemetry orders. 2. CBC, CMP daily. 3. Solu-Medrol 125 mg IV q.12hr. 4. Dilaudid 4 mg q.6hr p.r.n. 5. Can increase [place] 7.5 q.6hr p.r.n. 6. Will follow closely. TIME SPENT: More than 70 minutes. MTDD
[2019-08-15] MEDS: ZANAFLEX PO SCH ×2 (09:00→20:24)
[2019-08-15] MEDS: TAMBOCOR PO SCH (09:01)
[2019-08-15] MEDS: COREG PO SCH ×2 (09:01→17:32)
[2019-08-15] MEDS: ELIQUIS PO SCH ×2 (09:02→20:24)
[2019-08-15] MEDS: COLACE PO SCH (09:02)
--- NOTE | 2019-08-15 09:50 | PN ---
DATE OF SERVICE: 08/14/19 SUBJECTIVE: The patient was started on Zanaflex in addition with her Dilaudid and Percocet yesterday. She states last night is the first night she has been able to sleep. She was able to get up and brush her teeth this morning so pain has improved. Will discontinue the Dilaudid as she did not require it through the night. I do believe she possibly will be ready for discharge home tomorrow. Telemetry strips did show that she had some bigeminy but she was asymptomatic. It was during the time that she was up and about using the bathroom. She reported no chest tightness, no shortness of breath, no dizziness. REVIEW OF SYSTEMS: CONSTITUTIONAL: No night sweats. No fatigue, malaise, lethargy. No fever or chills. HEENT: Eyes: No visual changes. No eye pain. No eye discharge. ENT: No runny nose. No epistaxis. No sinus pain. No sore throat. No odynophagia. No congestion. RESPIRATORY: No cough, no congestion. No hemoptysis. No shortness of breath. CARDIOVASCULAR: No angina symptoms. No CHF symptoms. No atypical chest pain for CAD. No palpitations. No PND. No orthopnea. GASTROINTESTINAL: No abdominal pain. No nausea or vomiting. No diarrhea or constipation. No hematemesis. No hematochezia. GENITOURINARY: No urgency. No frequency. No dysuria. No hematuria. No obstructive symptoms. No discharge. No pain. No significant abnormal bleeding. MUSCULOSKELETAL: Positive for back pain, weakness. NEUROLOGICAL: No headache. No neck pain. No syncope. No seizures. No dizziness. PSYCHIATRIC: Not anxious. No depression. No suicidal thoughts. No homicidal thoughts. SKIN: No rash. No lesions. No wounds. ENDOCRINE: No unexplained weight loss. No weight gain. HEMATOLOGIC/LYMPHATIC: No anemia. No purpura. No petechiae. No prolonged or excessive bleeding. No palpable lymph nodes. PHYSICAL EXAMINATION: HEENT: Head normocephalic, atraumatic. Eyes: Extraocular muscles are intact. Pupils are equal, round and reactive to light and accommodation. Ears: No lesions. Nose appeared normal. Throat: No exudate or erythema. NECK: Supple. No JVD, no carotid bruit. No lymphadenopathy or thyromegaly. LUNGS: Diminished breath sounds. Regular heart rate. Clear to auscultation. Percussion note normal. Chest symmetrical. HEART: S1, S2, no S3. No murmurs. No cyanosis or clubbing. No ascites. Pulses: Dorsalis pedis and posterior tibial pulses +1 to +2 bilaterally. ABDOMEN: Soft. Nontender. Bowel sounds active. No CVA tenderness. No mass felt. EXTREMITIES: Left SI joint tenderness. No edema. Full range of motion of all extremities, equal. NEUROLOGIC: No focal deficit. Cranial nerves II through XII are grossly intact. No headache, no double vision or headache. SKIN: Not dry. Intact. Turgor - normal. LYMPHATIC: No palpable lymph nodes/no lymphedema. MUSCULOSKELETAL: Normal joints with no swelling. Muscle tone is normal. ASSESSMENT: 1. INTRACTABLE LOW BACK PAIN. 2. MUSCLE SPASM. 3. LUMBAR RADICULOPATHY 4. ATRIAL FIBRILLATION PLAN: 1. D/C Dilaudid. 2. Continue Percocet. 3. Continue Zanaflex. 4. Will do 24 hour holter monitor. 5. Anticipate D/C home tomorrow. TIME SPENT: More than 30 minutes. Plan and coordination of the patient's care discussed in the presence of nurse. JONATHAN
--- NOTE | 2019-08-15 14:22 | PCM.PROG ---
Attending Provider: ATTENDING PROVIDER: Dr. TEZ FREEMAN DATE OF SERVICE: 08/15/19 SUBJECTIVE: This 68 year old /WHITE F was hospitalized 08/12/19 with sciatica. The patient's intractable pain which is a lot better. IV medication and steroids has helped and she is able to walk some now. She doesn't have much pain. She is still on IV steroids. We will discontinue the IV steroids and put her on Pr ednisone 30mg a day. REVIEW OF SYSTEMS: CONSTITUTIONAL: No night sweats. No fatigue, malaise, lethargy. No fever or chills. HEENT: Eyes: No visual changes. No eye pain. No eye discharge. ENT: No runny nose. No epistaxis. No sinus pain. No odynophagia. No congestion. RESPIRATORY: No cough, no congestion. No hemoptysis. No shortness of breath. CARDIOVASCULAR: No angina symptoms. No CHF symptoms. No atypical chest pain for CAD. No palpitations. No orthopnea.. GASTROINTESTINAL: No abdominal pain. No nausea or vomiting. No diarrhea or constipation. No hematemesis. No hematochezia. GENITOURINARY: No urgency. No frequency. No dysuria. No hematuria. No obstructive symptoms. No discharge. No pain. No significant abnormal bleeding. MUSCULOSKELETAL: No musculoskeletal pain; no joint swelling. sciatica 1-3 on scale of 1-10, was a 10. NEUROLOGICAL: Awake, alert, oriented to time, place and person. No headache. No neck pain. No syncope. No seizures. No dizziness. PSYCHIATRIC: Not anxious. No depression. No suicidal thoughts. No homicidal thoughts. SKIN: No rash. No lesions. No wounds. ENDOCRINE: No unexplained weight loss. No weight gain. HEMATOLOGIC/LYMPHATIC: No anemia. No purpura. No petechiae. No prolonged or excessive bleeding. No palpable lymph nodes. PHYSICAL EXAMINATION: GENERAL: The patient is awake, alert and oriented, lying in bed in no distress. VITAL SIGNS: Temperature 97.8 F, Pulse 72, Respiratory Rate 20, BP 142/68, Pulse Ox 96% HEENT: Head normocephalic, atraumatic. Eyes: Extraocular muscles are intact. Pupils are equal, round and reactive to light and accommodation. Ears: No lesions. Nose appeared normal. Throat: No exudate or erythema. NECK: Supple. No JVD, no carotid bruit. No lymphadenopathy or thyromegaly. LUNGS: Clear to auscultation. Percussion note normal. Chest symmetrical. HEART: S1, S2, no S3. No murmurs. No cyanosis or clubbing. No ascites. Pulses: Dorsalis pedis and posterior tibial pulses +1 to +2 both sides. ABDOMEN: Soft. Non-tender. Bowel sounds active. No CVA tenderness. No mass felt. EXTREMITIES: No edema. Full range of motion of all extremities, equal. NEUROLOGIC: No focal deficit. Cranial nerves II through XII are grossly intact. No headache, no double vision or headache. SKIN: Warm and dry. Intact. Turgor-normal. LYMPHATIC: No palpable lymph nodes/no lymphedema. MUSCULOSKELETAL: Normal joints with no swelling. Muscle tone is normal. LAB REVIEW: 08/15/19 04:57 08/15/19 04:57 08/15/19 04:57: Sodium 136.8, Potassium 4.04, Chloride 99.7, Carbon Dioxide 33.8 H, Anion Gap 7.34, BUN 16.2, Creatinine 0.72, Estimated GFR (MDRD) 80.00, BUN/Creatinine Ratio 22.50, Glucose 163.5 H, Calcium 9.04, Total Bilirubin 0.31, AST 18.7, ALT 15.5, Alkaline Phosphatase 121.8, Total Protein 6.74, Albumin 3.64, Globulin 3.10, Albumin/Globulin Ratio 1.17 08/15/19 04:57: WBC 13.38 H D, RBC 4.42, Hgb 12.5, Hct 39.4, MCV 89.1, MCH 28.3, MCHC 31.7 L, RDW Coeff of Vel 13.5, Plt Count 220, Immature Gran % (Auto) 1.8, Neut % (Auto) 90.0, Lymph % (Auto) 6.2 L, [place] % (Auto) 1.9, Eos % (Auto) 0.0, Baso % (Auto) 0.1, Immature Gran # (Auto) 0.2, Neut # (Auto) 12.0 H, Lymph # (Auto) 0.8, [place] # (Auto) 0.3 L, Eos # (Auto) 0.0, Baso # (Auto) 0.0 08/14/19 04:44: Sodium 136.7, Potassium 4.64, Chloride 103.3, Carbon Dioxide 30.1 H, Anion Gap 7.94, BUN 11.9, Creatinine 0.63, Estimated GFR (MDRD) 93.00, BUN/Creatinine Ratio 18.88, Glucose 195.5 H, Calcium 9.17, Total Bilirubin 0.25, AST 17.3, ALT 16.5, Alkaline Phosphatase 126.6, Total Protein 6.67, Albumin 3.59, Globulin 3.08, Albumin/Globulin Ratio 1.16 08/14/19 04:44: WBC 19.07 H D, RBC 4.26, Hgb 12.3, Hct 38.3, MCV 89.9, MCH 28.9, MCHC 32.1, RDW Coeff of Vel 13.6, Plt Count 237, Immature Gran % (Auto) 1.2, Neut % (Auto) 91.9, Lymph % (Auto) 5.2 L, [place] % (Auto) 1.6, Eos % (Auto) 0.0, Baso % (Auto) 0.1, Immature Gran # (Auto) 0.2, Neut # (Auto) 17.5 H, Lymph # (Auto) 1.0, [place] # (Auto) 0.3 L, Eos # (Auto) 0.0, Baso # (Auto) 0.0 ASSESSMENT: Please see below. 1. Sciatica resolved, the patient has PT which did not help. PLAN: 1. Discharge tomorrow with home exercises 2. The patient is supposed to MRI by [facility] in one week. Plan and coordination of the patient's care discussed in the presence of Clinic Office Assistant and nurse. CONDITION: Stable SCRIBED BY: FRANCISCO TRENT House Designer scribed while in presence of service performed by Dr. TEZ FREEMAN on 08/15/19 ([id number])
[2019-08-15] MEDS: LIPITOR PO SCH (17:32)
[2019-08-15] MEDS: PREDNISONE PO SCH (17:35)
[2019-08-16 04:55] VITALS: TEMP 98.3
[2019-08-16] MEDS: PERCOCET 5-325 PO SCH ×2 (05:46→12:10)
[2019-08-16 05:53] VITALS: BP 154/86
[2019-08-16] MEDS: TAMBOCOR PO SCH (08:13)
[2019-08-16] MEDS: PREDNISONE PO SCH ×2 (08:13→12:10)
[2019-08-16] MEDS: COLACE PO SCH (08:14)
[2019-08-16] MEDS: ELIQUIS PO SCH (08:14)
[2019-08-16] MEDS: DYAZIDE PO SCH (08:14)
[2019-08-16] MEDS: COREG PO SCH (08:14)
[2019-08-16] MEDS: ZANAFLEX PO SCH (08:14)
--- NOTE | 2019-08-16 09:05 | PCM.PROG ---
Attending Provider: ATTENDING PROVIDER: Dr. TEZ FREEMAN This patient is seen with Melissa Ann, Nurse Practitioner. DATE OF SERVICE: 08/16/19 SUBJECTIVE: This 68 year old /WHITE F was hospitalized 08/12/19. The patient is resting comfortably. Her pain is controlled. She is been up and about and ready to go home. REVIEW OF SYSTEMS: CONSTITUTIONAL: No night sweats. No fatigue, malaise, lethargy. No fever or chills. HEENT: Eyes: No visual changes. No eye pain. No eye discharge. ENT: No runny nose. No epistaxis. No sinus pain. No odynophagia. No congestion. RESPIRATORY: No cough, no congestion. No hemoptysis. No shortness of breath. CARDIOVASCULAR: No angina symptoms. No CHF symptoms. No atypical chest pain for CAD. No palpitations. No orthopnea.. GASTROINTESTINAL: No abdominal pain. No nausea or vomiting. No diarrhea or constipation. No hematemesis. No hematochezia. GENITOURINARY: No urgency. No frequency. No dysuria. No hematuria. No obstructive symptoms. No discharge. No pain. No significant abnormal bleeding. MUSCULOSKELETAL: No musculoskeletal pain; no joint swelling. Back pain improved. NEUROLOGICAL: Awake, alert, oriented to time, place and person. No headache. No neck pain. No syncope. No seizures. No dizziness. PSYCHIATRIC: Not anxious. No depression. No suicidal thoughts. No homicidal thoughts. SKIN: No rash. No lesions. No wounds. ENDOCRINE: No unexplained weight loss. No weight gain. HEMATOLOGIC/LYMPHATIC: No anemia. No purpura. No petechiae. No prolonged or excessive bleeding. No palpable lymph nodes. PHYSICAL EXAMINATION: GENERAL: The patient is awake, alert and oriented, lying in bed in no distress. VITAL SIGNS: Temperature 98.3 F, Pulse 60, Respiratory Rate 18, BP 154/86, Pulse Ox 93% HEENT: Head normocephalic, atraumatic. Eyes: Extraocular muscles are intact. Pupils are equal, round and reactive to light and accommodation. Ears: No lesions. Nose appeared normal. Throat: No exudate or erythema. NECK: Supple. No JVD, no carotid bruit. No lymphadenopathy or thyromegaly. LUNGS: Clear to auscultation. Percussion note normal. Chest symmetrical. HEART: S1, S2, no S3. No murmurs. No cyanosis or clubbing. No ascites. Pulses: Dorsalis pedis and posterior tibial pulses +1 to +2 both sides. ABDOMEN: Soft. Non-tender. Bowel sounds active. No CVA tenderness. No mass felt. EXTREMITIES: No edema. Full range of motion of all extremities, equal. NEUROLOGIC: No focal deficit. Cranial nerves II through XII are grossly intact. No headache, no double vision or headache. SKIN: Not dry. Intact. Turgor-normal. LYMPHATIC: No palpable lymph nodes/no lymphedema. MUSCULOSKELETAL: Normal joints with no swelling. Muscle tone is normal. LAB REVIEW: 08/16/19 04:47 08/16/19 04:47 08/16/19 04:47: Sodium 136.8, Potassium 4.02, Chloride 100.1, Carbon Dioxide 33.2 H, Anion Gap 7.52, BUN 18.0 H, Creatinine 0.72, Estimated GFR (MDRD) 80.00, BUN/Creatinine Ratio 25.00, Glucose 135.1 H, Calcium 8.73, Total Bilirubin 0.35, AST 19.4, ALT 16.1, Alkaline Phosphatase 116.2, Total Protein 6.33, Albumin 3.39 L, Globulin 2.94, Albumin/Globulin Ratio 1.15 08/16/19 04:47: WBC 12.13 H, RBC 4.47, Hgb 12.7, Hct 39.4, MCV 88.1, MCH 28.4, MCHC 32.2, RDW Coeff of Vel 13.5, Plt Count 229, Immature Gran % (Auto) 1.5, Neut % (Auto) 79.5, Lymph % (Auto) 12.3, [place] % (Auto) 6.5, Eos % (Auto) 0.0, Baso % (Auto) 0.2, Immature Gran # (Auto) 0.2, Neut # (Auto) 9.7 H, Lymph # (Auto) 1.5, [place] # (Auto) 0.8, Eos # (Auto) 0.0, Baso # (Auto) 0.0 ASSESSMENT: Please see below. 1. Intractable back pain 2. DJD of L spine 3. Atrial fibrillation PLAN: 1. Discharge home 2. Percocet 5mg three times a day PRN 3. Prednisone 10mg TID times two days, BID times three days and daily times two days. 4. Zanaflex BID PRN 5. Followup next week. Plan and coordination of the patient's care discussed in the presence of Bakelite Molder and nurse. SCRIBED BY: Goldie ALCANTAR scribed while in presence of service performed by Dr. Freeman/Melissa Ann APRN on 08/16/19 ([id number])
--- NOTE | 2019-08-16 10:33 | CM.DICTOOL ---
ADMISSION: ADMISSION DATE: 08/12/19 11:00 DISCHARGE: AUGUST 16, 2019 FINAL DIAGNOSIS INTRACTABLE BACK PAIN DJD SPINE HYPERTENSION H/O ATRIAL FIB ON ELIQUIS CHF CHEST PAIN PALPITATIONS EDEMA DYSLIPIDEMIA COPD BRONCHITIS SCIATICA PAIN GERD OSTEOARTHRITIS HYPOTHYROIDISM S/P CARDIAC CATH 2011 CARDIAC ABLATION, 2012 OR 14 CATARACTS EXCISION CHOLECYSTECTOMY C SECTION LAST VITALS Temp Pulse Resp BP Pulse Ox 98.3 F 60 18 154/86 H 93 L 08/16/19 04:53 08/16/19 04:53 08/16/19 04:53 08/16/19 05:52 08/16/19 04:53 TAKE THESE MEDICATIONS AT HOME Albuterol Sulfate (Proair Hfa) 1 puff IH DAILY PRN PRN Reason: Wheezing Apixaban (Eliquis) 5 mg PO BID [facility] Last Admin: 08/16/19 08:14 Dose: 5 mg Documented by: Atorvastatin Calcium (Lipitor) 40 mg PO QPM [facility] Last Admin: 08/15/19 17:32 Dose: 40 mg Documented by: Carvedilol (Coreg) 12.5 mg PO BIDWM [facility] Last Admin: 08/16/19 08:14 Dose: 12.5 mg Documented by: Docusate Sodium (Colace) 100 mg PO DAILY [facility] Last Admin: 08/16/19 08:14 Dose: 100 mg Documented by: Flecainide Acetate (Tambocor) 200 mg PO DAILY [facility] Last Admin: 08/16/19 08:13 Dose: 200 mg Documented by: Lorazepam (Ativan) 1 mg PO DAILY PRN PRN Reason: ANXIETY Last Admin: 08/13/19 08:55 Dose: 1 mg Documented by: Nitroglycerin (Nitrostat) 0.4 mg SL Q5MIN X 3 DOSES PRN PRN Reason: chest pain Oxycodone/Acetaminophen (Percocet 5-325) 1 tab PO Q8HR [facility] Last Admin: 08/16/19 05:46 Dose: 1 tab Documented by: Prednisone (Prednisone) 10 mg PO TIDWM [facility] (TAPERING DOSE) Last Admin: 08/16/19 08:13 Dose: 10 mg Documented by: Tizanidine HCl (Zanaflex) 4 mg PO BID [facility] Last Admin: 08/16/19 08:14 Dose: 4 mg Documented by: Triamterene/HCTZ (Dyazide) 1 cap PO EVERY OTHER DAY [facility] Last Admin: 08/16/19 08:14 Dose: 1 cap Documented by: ALLERGIES morphine Adverse Reaction (Verified 08/12/19 07:12) DISCONTINUED MEDICATIONS NORCO 7.5-325 NEW PRESCRIPTIONS: NEW PRESCRIPTIONS PERCOCET 5-325 EVERY 8 HOURS #30 ZANAFLEX 4 MG BID # 30 PREDNISONE 10 MG TID FOR 2 DAYS, THEN BID FOR 3 DAYS, THEN DAILY FOR 2 DAY COLACE 100 MG DAILY SMOKING: NOT APPLICABLE (NON-SMOKER) DISEASE SPECIFIC EDUCATION: ACTIVITY: NO LIFTING, PUSHING, PULLING NEW MEDICATIONS LOWER BACK PAIN USE OF STEROIDS AND RISK OF GI IRRITATION, BLEEDING LAB REVIEW: 08/16/19 04:47 08/16/19 04:47 08/16/19 04:47: Sodium 136.8, Potassium 4.02, Chloride 100.1, Carbon Dioxide 33.2 H, Anion Gap 7.52, BUN 18.0 H, Creatinine 0.72, Estimated GFR (MDRD) 80.00, BUN/Creatinine Ratio 25.00, Glucose 135.1 H, Calcium 8.73, Total Bilirubin 0.35, AST 19.4, ALT 16.1, Alkaline Phosphatase 116.2, Total Protein 6.33, Albumin 3.39 L, Globulin 2.94, Albumin/Globulin Ratio 1.15 08/16/19 04:47: WBC 12.13 H, RBC 4.47, Hgb 12.7, Hct 39.4, MCV 88.1, MCH 28.4, MCHC 32.2, RDW Coeff of Vel 13.5, Plt Count 229, Immature Gran % (Auto) 1.5, Neut % (Auto) 79.5, Lymph % (Auto) 12.3, [place] % (Auto) 6.5, Eos % (Auto) 0.0, Baso % (Auto) 0.2, Immature Gran # (Auto) 0.2, Neut # (Auto) 9.7 H, Lymph # (Auto) 1.5, [place] # (Auto) 0.8, Eos # (Auto) 0.0, Baso # (Auto) 0.0 PLAN: DISCHARGE HOME DIET: RESUME TOLERATED ACTIVITY: GRADUALLY RESUME TOLERATED AVOID LIFTING, PUSHING, PULLING AN APPOINTMENT IS SCHEDULED WITH DR. FREEMAN ON August AT 10:30 CODE STATUS: CPR ONLY, DNI MS RODRIGUEZ IS ALERT AND ORIENTED X 3. DISCHARGE PLANS, PRESCRIPTIONS HAVE BEEN DISCUSSED WITH MS. RODRIGUEZ AND SHE IS AGREEABLE. SHE REPORTS HER CURRENT PAIN LEVEL IS "3" ON THE PAIN SCALE. SHE IS INDEPENDENT WITH BED MOBILITY AND AMBULATION. SHE DOES NOT REQUIRE AN ASSISTIVE DEVICE FOR AMBULATION. SHE IS INDEPENDENT WITH ALL ACTIVITIES OF DAILY LIVING. SHE IS AMBULATORY IN THE ROOM AND HALLWAY. HYDRATION STATUS IS GOOD, MEAL INTAKES ARE 50-100%. NO NAUSEA OR ABDOMINAL PAIN ARE REPORTED. SKIN IS FREE OF DECUBITUS ULCERS. MD PARMINDER GARCIA, DAVIS
[2019-08-16] MEDS ORDERED: K-DUR PO SCH (12:00)
--- NOTE | 2019-08-17 13:18 | HOLTER ---
PATIENT INFORMATION AND COMMENTS Attending Physician: DR. TEZ FREEMAN Indications: BIGEMINY, PVC'S __ Patient Medications: ELIGUIS, LIPITOR, COREG, COLACE, TAMBOCOR, ATIVAN, SOLU- MEDROL, PERCOCET, ZANAFLEX, DYAZIDE __ Pre-procedure Summary: Protocol: Standard Heart Rate Started: 08/14/19 1202 Minimum: 43 BPM Weight: 259 LBS Ended: 08/15/19 1202 Maximum: 97 BPM Height: 70" Duration: 24 HOURS Average: 61 BPM _ INTERPRETATIONS/OBSERVATIONS: 1. BASIC RHYTHM: SINUS, RATE 45 BPM TO 100 BPM, AVERAGE 60 BPM 2. PVC'S- ISOLATED, SOME IN THE FORM OF BIGEMINY, 15% OF BEATS SCANNED 3. RARE PAC'S 4. NO ST-T WAVE CHANGES FROM BASELINE 5. NO ACTIVITY LOG AVAILABLE MTDD
--- NOTE | 2019-08-17 14:15 | ECHO2D ---
Date of Exam: 08/16/19 Ordering Physician: DR. TEZ FREEMAN Room #: [id number] Reason for Echo: HTN, A-FIB, CHF, CHEST PAIN, COPD, EDEMA, PALPITATIONS M-Mode Normal Adult Results LV Dimensions Normal Adult Results AoV Opening excursions >1.6 >1.6 LVEDD-base- 3.5-5.8 5.5 Ao root dimensions 2.0-3.7 3.2 LVESD-base- 3.1-4.6 L. Atrium dimensions 1.9-3.8 5.3 Post. Wall thickness 0.8-1.1 1.2 IV septum (thickness) 0.7-1.2 1.2 Post. Wall excursion 0.72-1.3 NORMAL Septal motion NORMAL Systolic motion R. Ventricular cavity 1.5-2.0 NORMAL LVEF 60% 50% Paradoxical septal wall motion NORMAL 2-D : ENLARGED LEFT ATRIAL CAVITY--BORDERLINE LEFT VENTRICLE CAVITY--NORMAL LEFT VENTRICLE CONTRACTILITY--NORMAL VALVES--NO EFFUSION, NO THROMBUS M-MODE: MV: NORMAL AV: NORMAL TV: NORMAL PV: CHAMBER SIZE: ENLARGED LEFT ATRIAL CAVITY--BORDERLINE LEFT VENTRICLE CAVITY WALL MOTION: NORMAL PERICARDIUM: NORMAL INTERPRETATION: 1. LEFT VENTRICULAR HYPERTROPHY WITH MARKEDLY ENLARGED LEFT ATRIAL CAVITY 2. BORDERLINE LEFT VENTRICLE CAVITY 3. NORMAL VALVES 4. NORMAL LEFT VENTRICULAR CONTRACTILITY--EJECTION FRACTION 50% MTDD
--- NOTE | 2019-08-24 14:57 | DS ---
DATE OF SERVICE: 08/16/19 FINAL DIAGNOSIS: 1. INTRACTABLE BACK PAIN 2. DJD SPINE 3. HYPERTENSION 4. H/O ATRIAL FIB ON ELIQUIS 5. CHF 6. CHEST PAIN 7. PALPITATIONS 8. EDEMA 9. DYSLIPIDEMIA 10. COPD 11. BRONCHITIS 12. SCIATICA PAIN 13. GERD 14. OSTEOARTHRITIS 15. HYPOTHYROIDISM 16. S/P CARDIAC CATH 2011 17. CARDIAC ABLATION, 2012 OR 18. CATARACTS EXCISION 19. CHOLECYSTECTOMY 20. C SECTION LAST VITALS Temp Pulse Resp BP Pulse Ox 98.3 F 60 18 154/86 H 93 L 08/16/19 04:53 08/16/19 04:53 08/16/19 04:53 08/16/19 05:52 08/16/19 04:53 DISCHARGE INSTRUCTIONS: 1. AN APPOINTMENT IS SCHEDULED WITH DR. FREEMAN ON August AT 10:30. MEDICATIONS AT DISCHARGE: Albuterol Sulfate (Proair Hfa) 1 puff IH DAILY PRN PRN Reason: Wheezing Apixaban (Eliquis) 5 mg PO BID [facility] Last Admin: 08/16/19 08:14 Dose: 5 mg Documented by: Atorvastatin Calcium (Lipitor) 40 mg PO QPM [facility] Last Admin: 08/15/19 17:32 Dose: 40 mg Documented by: Carvedilol (Coreg) 12.5 mg PO BIDWM [facility] Last Admin: 08/16/19 08:14 Dose: 12.5 mg Documented by: Docusate Sodium (Colace) 100 mg PO DAILY [facility] Last Admin: 08/16/19 08:14 Dose: 100 mg Documented by: Flecainide Acetate (Tambocor) 200 mg PO DAILY [facility] Last Admin: 08/16/19 08:13 Dose: 200 mg Documented by: Lorazepam (Ativan) 1 mg PO DAILY PRN PRN Reason: ANXIETY Last Admin: 08/13/19 08:55 Dose: 1 mg Documented by: Nitroglycerin (Nitrostat) 0.4 mg SL Q5MIN X 3 DOSES PRN PRN Reason: chest pain Oxycodone/Acetaminophen (Percocet 5-325) 1 tab PO Q8HR [facility] Last Admin: 08/16/19 05:46 Dose: 1 tab Documented by: Prednisone (Prednisone) 10 mg PO TIDWM [facility] (TAPERING DOSE) Last Admin: 08/16/19 08:13 Dose: 10 mg Documented by: Tizanidine HCl (Zanaflex) 4 mg PO BID [facility] Last Admin: 08/16/19 08:14 Dose: 4 mg Documented by: Triamterene/HCTZ (Dyazide) 1 cap PO EVERY OTHER DAY [facility] Last Admin: 08/16/19 08:14 Dose: 1 cap Documented by: NEW PRESCRIPTIONS: PERCOCET 5-325 EVERY 8 HOURS #30 ZANAFLEX 4 MG BID # 30 PREDNISONE 10 MG TID FOR 2 DAYS, THEN BID FOR 3 DAYS, THEN DAILY FOR 2 DAY COLACE 100 MG DAILY DISCONTINUED MEDICATIONS: NORCO 7.5-325 DIET INSTRUCTIONS: RESUME TOLERATED ACTIVITY: NO LIFTING, PUSHING, PULLING SMOKING: NOT APPLICABLE (NON-SMOKER) DISEASE SPECIFIC EDUCATION: NEW MEDICATIONS LOWER BACK PAIN USE OF STEROIDS AND RISK OF GI IRRITATION, BLEEDING HOSPITAL COURSE: 68-year-old white female presented to the emergency room with intractable back pain. CT scan showed multilevel degenerative joint disease. She has had this for some time. She reports no trauma. She was having back muscle spasms, was unable to walk, worse on the left side radiating down the left leg. She was admitted for pain control, given Dilaudid 4 mg IV q.6hr along with she had previously been on [place]. This was discontinued and she was placed on Percocet 5/325 q.6hr as well as Zanaflex 4 mg b.i.d. and Solumedrol 125 mg IV daily. Over the course of the past several days with rest and warm packs pain has slowly improved. She did have telemetry on. She has a history of atrial fibrillation, was on Eliquis. Telemetry did show bigeminy one morning. She was asymptomatic. Denied any dizziness, shortness of breath. She was put on a holter monitor, had some PVCs, but was otherwise unremarkable. Dr. Freeman did an echo and showed slightly increased LVH. Information has been given regarding hypertnesion, atrial fibrillation. She will go home on Percocet 5 t.i.d. p.r.n. Yesterday she was switched to oral Prednisone 10 t.i.d. She will do this for the next three days then b.i.d. for three days then daily for two days. She will also go home on Zanaflex twice a day p.r.n. We will follow up with her in the office next week with possible referral to neurosurgeon if needed. TIME SPENT: More than 60 minutes. JONATHAN
--- NOTE | 2019-09-05 10:17 | PN ---
DATE OF SERVICE: 08/13/19 SUBJECTIVE: The patient was seen and examined with the Nurse Practitioner. The patient's pain is much less as she has been able to take steps. The pain is listed as 1-6 on scale on of 1-10. The patient continues to be on Dilaudid and Percocet. TIME SPENT: More than 30 minutes. Plan and coordination of the patient's care discussed in the presence of nurse. JONATHAN
--- NOTE | 2019-09-05 10:29 | PN ---
DATE OF SERVICE: 08/14/19 SUBJECTIVE: The patient was seen and examined with the Nurse Practitioner. The patient's condition is improving. She is going to be taken off Dilaudid. The patient is advised back exercises and advised to lose weight. CONDITION: Stable. TIME SPENT: More than 30 minutes. Plan and coordination of the patient's care discussed in the presence of nurse. JONATHAN
--- NOTE | 2019-09-05 10:32 | PN ---
DATE OF SERVICE: 08/16/19 SUBJECTIVE: The patient was seen and examined with the Nurse Practitioner. The patient is up and about. The pain is 1-3 on scale of 1-10. She is going to be discharged on pain medications. Cardiovascular status is stable. She had less PVC's yesterday. The echo showed borderline enlarged LV cavity and enlarged LA cavity. Normal valvular structures. LV contractility is practically normal CONDITION: Stable. TIME SPENT: More than 30 minutes. Plan and coordination of the patient's care discussed in the presence of nurse. JONATHAN
== END 2019-08-16 12:20 | disposition home or self-care (01) | DRG 552 ==
LOC: ED 07:07 → MEDSURG B 11:00
PROVIDERS: ADMIT Internal Medicine; ATTEND Internal Medicine
DX: R07.9 Chest pain, unspecified; M54.41 Lumbago with sciatica, right side; R00.2 Palpitations; I50.9 Heart failure, unspecified; M19.90 Unspecified osteoarthritis, unspecified site; M48.00 Spinal stenosis, site unspecified; J40 Bronchitis, not specified as acute or chronic; M51.36 Other intervertebral disc degeneration, lumbar region; I48.91 Unspecified atrial fibrillation; M54.16 Radiculopathy, lumbar region; M62.838 Other muscle spasm; I10 Essential (primary) hypertension; E78.5 Hyperlipidemia, unspecified; J44.9 Chronic obstructive pulmonary disease, unspecified; M54.42 Lumbago with sciatica, left side; R60.0 Localized edema; K21.9 Gastro-esophageal reflux disease without esophagitis

== ENCOUNTER 2020-07-29 10:19 | Inpatient (IN) ==
--- NOTE | 2020-07-29 10:51 | ED.PDOC ---
General ED Provider: Dr. TIAN VALIENTE Chief Complaint: Chest Pain Stated Complaint: Chest palpitations. First noticed last PM for short period of time then was recurrent this morning (approx 20 min). States felt like heart racing.Denies angina symptoms Previous hx atrial fib and had an ablation several years ago. Time Seen by Physician: 10:35 Mode of Arrival: Walk-In Information Source: Patient Primary Care Provider: TEZ FREEMAN Referred to ED by: PCP Nursing and Triage Documentation Reviewed and Agree: Yes Does patient meet sepsis criteria?: No System Inflammatory Response Syndrome: Not Applicable Sepsis Protocol: For patient's 13 years and over: Temp is 96.8 and below OR 101 and greater Pulse >90 BPM Resp >20/minute Acutely Altered Mental Status Are patient's symptoms suggestive of a new infection, such as: -Pneumonia -Skin, Soft Tissue -Endocarditis -UTI -Bone, Joint Infection -Implantable Device -Acute Abdominal Infection -Wound Infection -Meningitis -Blood Stream Catheter Infection -Unknown Cardiovascular Complaint Exam Palpitations Complaint/Exam Onset/Duration: 24 hrs Symptoms Are: Resolved Timing: Intermittent Initial Severity: Severe Current Severity: None Character: Reports Fast and Pounding Aggravating: Reports Exertion Alleviating: Reports Exertion and Rest Associated Signs and Symptoms: Reports Lightheadedness and Shortness of breath Related History: Similar episode Related Surgical History: Denies None Cardiac Risk Factors: Reports Hypertension, Diabetes and CHF Atrial Fibrillation Risk Factors: Reports None Thyroid Exam: Normal Differential Diagnoses: Cardiomyopathy, Mitral Valve Prolapse, Pericarditis, Panic Disorder, Hyperventilation, Paroxysmal SVT, VT and Pulmonary Embolismn Quality Indicators for AMI: EKG in 10min. Review of Systems Review Of Systems Constitutional: Reports No symptoms Eyes: Reports No symptoms Ears, Nose, Mouth, Throat: Reports No symptoms Respiratory: Reports No symptoms Cardiac: Reports No symptoms GI: Reports No symptoms : Reports No symptoms Musculoskeletal: Reports No symptoms Skin: Reports No symptoms Neurological: Reports No symptoms Endocrine: Reports No symptoms Hematologic/Lymphatic: Reports No symptoms All Other Systems: Reviewed and Negative [facility] Medical History (Updated 07/29/20 @ 16:14 by YOSELIN GALLO RN) A-fib Acute suppurative otitis media with spontaneous rupture of eardrum Asthma Chronic obstructive pulmonary disease Chronic otitis media Diabetes mellitus Dysfunction of right eustachian tube External otitis Heart disease Hypertension Sensorineural hearing loss (SNHL) of both ears Family History (Updated 07/29/20 @ 16:14 by YOSELIN GALLO RN) Other No known health problems Social History Smoking and tobacco status: Former smoker Alcohol intake: never History of recent travel: No Female Reproductive History Menstrual Hx Hysterectomy: Yes Hx Tubal Ligation: No Physical Exam Physical Exam Appearance: Reports Well-appearing, No pain distress and Well-nourished Ill-appearing: None Pain Distress: None Eyes: Reports YASMANY, EOMI and Conjunctiva clear ENT: Reports Ears normal, Nose normal and Oropharynx normal Neck: Supple Respiratory: Reports Airway patent, Breath sounds clear, Breath sounds equal and Respirations nonlabored Cardiovascular: Reports RRR, Pulses normal, No rub and No murmur GI/: Reports Soft, Nontender, No masses, Bowel sounds normal and No Organomegaly Musculoskeletal: Reports Normal strength, ROM intact, No edema and No calf tenderness Skin: Reports Warm, Dry and Normal color Neurological: Reports Sensation intact, Motor intact, Reflexes intact, Cranial nerves intact, Alert and Oriented Psychiatric: Reports Affect appropriate and Mood appropriate Interpretation Radiology Interpretation Radiology Interpretation By: Radiologist Radiology Results: No acute changes Exam Interpreted: Portable CXR Physician Notification Case Discussed Physician Notified: Dr Freeman-yuriy for observation on telemetry Time of Notification: 13:00 Critical Care Note Critical Care Note Total Time (mins): 30 Course Course Hematology/Chemistry: 07/29/20 11:05 07/29/20 11:05 Orders, Labs, Meds: Lab Review 07/29/20 07/29/20 07/29/20 10:55 11:05 11:05 WBC 10.20 RBC 4.42 Hgb 12.7 Hct 39.8 MCV 90.0 MCH 28.7 MCHC 31.9 RDW Coeff of Vel 13.9 Plt Count 204 Immature Gran % (Auto) 0.4 Neut % (Auto) 69.5 Lymph % (Auto) 19.0 [place] % (Auto) 6.5 Eos % (Auto) 4.3 Baso % (Auto) 0.3 Neut # (Auto) 7.1 H Lymph # (Auto) 1.9 [place] # (Auto) 0.7 Eos # (Auto) 0.4 Baso # (Auto) 0.0 Immature Gran # (Auto) 0.0 Puncture Site R rad O2 Saturation 95.0 ABG pH 7.421 ABG pCO2 45.0 ABG pO2 77.0 L ABG HCO3 29.3 H ABG Total CO2 31 H ABG Base Excess 5 H Carl Test + O2 Delivery Device Ra FiO2 % 21.0 Sodium 136.5 Potassium 3.48 L Chloride 99.2 Carbon Dioxide 33.2 H Anion Gap 7.58 BUN 12.0 Creatinine 0.80 Estimated GFR (MDRD) 71.00 BUN/Creatinine Ratio 15.00 Glucose 142.0 H Calcium 9.40 Magnesium 1.84 Total Bilirubin 0.70 AST 28.5 ALT 15.4 Alkaline Phosphatase 132.5 Troponin I < 0.012 Total Protein 7.21 Albumin 3.80 Globulin 3.41 Albumin/Globulin Ratio 1.11 Amylase 32.1 Lipase 25.2 TSH D-Dimer Urine Color Urine Clarity Urine pH Ur Specific [place] Urine Protein Urine Glucose (UA) Urine Ketones Urine Blood Urine Nitrite Urine Bilirubin Urine Urobilinogen Ur Leukocyte Esterase Urine Microscopic WBC Ur Squamous Epith Cells Urine Bacteria 07/29/20 07/29/20 07/29/20 11:05 11:05 11:30 WBC RBC Hgb Hct MCV MCH MCHC RDW Coeff of Vel Plt Count Immature Gran % (Auto) Neut % (Auto) Lymph % (Auto) [place] % (Auto) Eos % (Auto) Baso % (Auto) Neut # (Auto) Lymph # (Auto) [place] # (Auto) Eos # (Auto) Baso # (Auto) Immature Gran # (Auto) Puncture Site O2 Saturation ABG pH ABG pCO2 ABG pO2 ABG HCO3 ABG Total CO2 ABG Base Excess Carl Test O2 Delivery Device FiO2 % Sodium Potassium Chloride Carbon Dioxide Anion Gap BUN Creatinine Estimated GFR (MDRD) BUN/Creatinine Ratio Glucose Calcium Magnesium Total Bilirubin AST ALT Alkaline Phosphatase Troponin I Total Protein Albumin Globulin Albumin/Globulin Ratio Amylase Lipase TSH 1.290 D-Dimer 347.03 Urine Color Yellow Urine Clarity Clear Urine pH 5.5 Ur Specific [place] >=1.030 Urine Protein Negative Urine Glucose (UA) Negative Urine Ketones Negative Urine Blood Trace-intact H Urine Nitrite Negative Urine Bilirubin Negative Urine Urobilinogen 0.2 Ur Leukocyte Esterase Negative Urine Microscopic WBC 0-2 Ur Squamous Epith Cells 2-5 Urine Bacteria Trace Orders Category Date Time Status ABG DRAW REQUEST Stat CARDIO 07/29/20 10:55 Completed EKG-(ED ONLY) Stat CARDIO 07/29/20 10:54 Completed EKG-(IP & OP ONLY) Routine CARDIO 07/30/20 06:00 Ordered OXYGEN Routine CARDIO 07/29/20 10:56 Active ACTIVITY .BR with BRP CARE 07/29/20 13:10 Completed BLOOD GLUCOSE MONITORING 0630,1100,1700,2100 CARE 07/29/20 13:11 Completed INTAKE & OUTPUT Q8HR CARE 07/29/20 13:10 Active VITAL SIGNS Q4HR CARE 07/29/20 13:10 Completed CARDIAC DIET DIETARY 07/29/20 Lunch Ordered ED APPLY O2 .ONCE EMERGENCY 07/29/20 13:09 Active ED APPLY O2 .ONCE EMERGENCY 07/29/20 13:09 Completed ED IV/MEDIPORT/POWERPORT .ONCE EMERGENCY 07/29/20 13:09 Completed IV [ED IV/MEDIPORT/POWERPORT] .ONCE EMERGENCY 07/29/20 10:58 Active ABG Stat LAB 07/29/20 10:55 Completed AMYLASE Stat LAB 07/29/20 11:05 Completed CBC W/ AUTO DIFF DAILY@0600 LAB 07/30/20 06:00 Ordered CBC W/ AUTO DIFF DAILY@0600 LAB 07/31/20 06:00 Ordered CBC W/ AUTO DIFF Stat LAB 07/29/20 11:05 Completed CMP [COMPREHENSIVE METABOLIC PANEL] Stat LAB 07/29/20 11:05 Completed COMPREHENSIVE METABOLIC PANEL DAILY@0600 LAB 07/30/20 06:00 Ordered COMPREHENSIVE METABOLIC PANEL DAILY@0600 LAB 07/31/20 06:00 Ordered D-DIMER Stat LAB 07/29/20 11:05 Completed LIPASE Stat LAB 07/29/20 11:05 Completed MAGNESIUM Stat LAB 07/29/20 11:05 Completed TROPONIN I Stat LAB 07/29/20 11:05 Completed UA [URINALYSIS C & S IF INDICATED] Stat LAB 07/29/20 11:30 Completed 0.9 % Sodium Chloride [Saline Flush] MEDS 07/29/20 10:56 Active 1 syr IVF PRN PRN 0.9 % Sodium Chloride [Saline Flush] MEDS 07/29/20 13:09 Active 1 syr IVF PRN PRN Potassium Chloride [K-Dur] MEDS 07/29/20 12:20 Discontinued 20 meq PO ONCE STA Sodium Chloride 0.9% [Sodium Chloride] 1,000 ml MEDS 07/29/20 13:09 Discontinued IV BOLUS RESUSCITATION STATUS Routine OTHERS 07/29/20 13:09 Ordered CHEST, 1V AP ONLY Stat RADS 07/29/20 10:54 Completed Medications Generic Name Dose Route Start Last Admin Trade Name Kiel PRN Reason Stop Dose Admin Hydrocodone Bitart/Acetaminophen 1 tab 07/29/20 21:00 Hydrocodone Bit/Acetaminophen 7.5/325 Mg Tablet PO BID CINTHIA Albuterol Sulfate 2 puff 07/29/20 14:31 Albuterol Sulfate (Ventolin Hfa) 18 Gm 1 Puff With Spacer IH DAILY PRN Bronchospasm Apixaban 5 mg 07/29/20 21:00 Apixaban 5 Mg Tab PO BID CINTHIA Atorvastatin Calcium 40 mg 07/29/20 21:00 Atorvastatin Calcium 20 Mg Tablet PO BEDTIME CINTHIA Carvedilol 12.5 mg 07/29/20 17:00 07/29/20 16:51 Carvedilol 12.5 Mg Tablet PO 12.5 mg BIDWM CINTHIA Administration Flecainide Acetate 200 mg 07/30/20 09:00 Flecainide Acetate 100 Mg Tablet PO DAILY CINTHIA Lorazepam 1 mg 07/29/20 14:26 Lorazepam 1 Mg Tablet PO DAILY PRN Anxiety Nitroglycerin 0.4 mg 07/29/20 14:22 Nitroglycerin 0.4 Mg Tab.Subl SL Q5MIN X 3 DOSES PRN Chest Pain Potassium Chloride 20 meq 07/30/20 08:30 Potassium Chloride 20 Meq Tab PO DAILYWM CINTHIA Sodium Chloride 1 syr 07/29/20 10:56 07/29/20 13:46 0.9% Sodium Chloride 10 Ml Disp.Syrin IVF 1 syr PRN PRN Administration To flush IV Sodium Chloride 1 syr 07/29/20 13:09 0.9% Sodium Chloride 10 Ml Disp.Syrin IVF PRN PRN To flush IV Triamterene/HCTZ 1 cap 07/31/20 09:00 Triamterene/Hydrochlorothiazid 37.5/25 Mg Capsule PO EVERY OTHER DAY CINTHIA Discontinued Medications Generic Name Dose Route Start Last Admin Trade Name Kiel PRN Reason Stop Dose Admin Sodium Chloride 1,000 mls @ 1,000 mls/hr 07/29/20 13:09 07/29/20 13:46 Sodium Chloride IV 07/29/20 14:08 1,000 mls/hr BOLUS STA Administration Potassium Chloride 20 meq 07/29/20 12:20 07/29/20 12:44 Potassium Chloride 20 Meq Tab PO 07/29/20 12:21 20 meq ONCE STA Administration Vital Signs: Temp Pulse Resp BP Pulse Ox 07/29/20 10:19 98.1 F 75 22 137/81 93 L MITZI Risk Score MITZI Risk Score: Risk Score Odds of by 30D 0 0.1 (0.1-0.2) 1 0.3 (0.2-0.3) 2 0.4 (0.3-0.5) 3 0.7 (0.6-0.9) 4 1.2 (1.0-1.5) 5 2.2 (1.9-2.6) 6 3.0 (2.5-3.6) 7 4.8 (3.8-6.1) Discharge Plan Discharge Patient Disposition: PLACED OBSERVATION Discharge Problem: Tachycardia, Chest pain ED Provider: TIAN VALIENTE Condition: Stable
[2020-07-29 11:13] LABS: BASOPHILS % (AUTO) 0.3 % (0.0-3.0); EOSINOPHILS # (AUTO) 0.4 K/ul (0.0-0.7); EOSINOPHILS % (AUTO) 4.3 % (0.0-7.0); HEMATOCRIT 39.8 % (37.0-47.0); HEMOGLOBIN 12.7 g/dl (12.0-16.0); IMMATURE GRANULOCYTE % (AUTO) 0.4 % (0.0-5.0); LYMPHOCYTES # (AUTO) 1.9 K/uL (0.60-3.4); MEAN CORPUSCULAR HGB CONC 31.9 (31.8-35.4); MONOCYTES # (AUTO) 0.7 K/uL (0.4-2.0); MONOCYTES % (AUTO) 6.5 (0-10); NEUTROPHILS # (AUTO) 7.1 K/ul (2.0-6.9); NEUTROPHILS % (AUTO) 69.5 % (42.2-75.2); PLATELET COUNT 204 10^3/uL (140-440); RDW COEFFICIENT OF VARIATION 13.9 % (11.6-14.8); RED BLOOD COUNT 4.42 10^6/ul (4.20-5.40)
[2020-07-29 11:25] LABS: ALANINE AMINOTRANSFERASE 15.4 U/L (0-35); ALKALINE PHOSPHATASE 132.5 U/L (53-141); AMYLASE 32.1 U/L (30-110); ASPARTATE AMINO TRANSFERASE 28.5 U/L (14-36); CARBON DIOXIDE 33.2 mmol/L (22-30.0); CHLORIDE 99.2 mmol/L (98-107); SODIUM 136.5 mmol/L (134.5-145); TOTAL PROTEIN 7.21 g/dL (6.3-8.2)
[2020-07-29 11:28] LABS: ABG BASE EXCESS 5 (-2.0-2.0); ABG HCO3 29.3 (22.0-26.0); ABG PH 7.421 (7.35-7.45); ABG TCO2 31 (22.0-28.0)
[2020-07-29 11:44] LABS: BILIRUBIN,URINE Negative (NEGATIVE); CLARITY,URINE Clear (CLEAR); COLOR,URINE Yellow (YELLOW); GLUCOSE, URINE (UA) Negative (NEGATIVE); KETONES,URINE Negative (NEGATIVE); LEUKOCYTE ESTERASE ,URINE Negative (NEGATIVE); NITRITE,URINE Negative (NEGATIVE); PH,URINE 5.5 (5-9); URINE, BLOOD Trace-intact (NEGATIVE); UROBILINOGEN,URINE 0.2 (0.2)
[2020-07-29 11:52] LABS: BACTERIA,URINE TRACE (NOT PRESENT); URINE WBC, MICROSCOPIC 0-2 (0-2)
--- NOTE | 2020-07-29 11:57 | DI ---
EXAM: CHEST FRONTAL VIEW HISTORY: Chest palpitations. COMPARISON: 08/17/2019 FINDINGS: Heart size is mildly prominent, stable. Normal vascularity. No pleural fluid or consolid ation. No pneumothorax. There are scattered calcifications suggesting old granulomatous disease. N o acute infiltrates are seen. No vascular congestion. There is no consolidation, visible pleural fl uid or pneumothorax. Bones reveal no acute fracture. IMPRESSION: No acute cardiopulmonary process.
[2020-07-29 11:58] LABS: LIPASE 25.2 U/L (23-300); MAGNESIUM 1.84 mg/dL (1.6-2.3)
[2020-07-29] MEDS ORDERED: K-DUR PO STA (12:20)
[2020-07-29] MEDS ORDERED: SODIUM CHLORIDE 1,000 ML IV STA (13:09)
[2020-07-29] MEDS ORDERED: NITROSTAT SL PRN (14:22)
[2020-07-29] MEDS ORDERED: ATIVAN PO PRN ×2 (14:22→14:26)
[2020-07-29] MEDS ORDERED: ALBUTEROL SULFATE 90 MCG IH PRN (14:22)
[2020-07-29] MEDS ORDERED: VENTOLIN HFA (PER PUFF-WITH SPACER) IH PRN (14:31)
[2020-07-29 16:22] VITALS: BMI 37.5
--- NOTE | 2020-07-29 16:38 | US ---
EXAM: Carotid ultrasound HISTORY: Dizziness, syncope COMPARISON: None TECHNIQUE: Carotid ultrasound was performed using Duplex imaging with strong scale, color, and Doppler imaging performed. FINDINGS: Technologist reports the examination is technically difficult due to patient's heavy breathing. Right carotid: There is atherosclerotic plaque in the common carotid and bulb/internal carotid arter y. Visual estimate of narrowing is greater than 50% and portions of the lumen are difficult to visua lize. Peak systolic velocity measurement in the right internal carotid artery is 0.82 meters per sec ond. End-diastolic velocity measurement in the right internal carotid artery is 0.30 meters per seco nd. Right internal to common carotid artery peak systolic velocity ratio is 1.0. Flow in the right vertebral artery is antegrade. Left carotid: There is atherosclerotic plaque in the common carotid and bulb/internal carotid artery . Peak systolic velocity measurement in the left internal carotid artery is 0.93 meters per second. End-diastolic velocity measurement in the left internal carotid artery is 0.25 meters per second. L eft internal to common carotid artery peak systolic velocity ratio measures 1.2. Flow in the left ve rtebral artery is antegrade. IMPRESSION: 1. Right internal carotid: Peak systolic velocity corresponds with mild (less than 50%) stenosis; ho wever, visual estimate of narrowing greater than 50% and portions of the liver difficult to visualize . Recommend correlation with CT angiography neck. 2. Left internal carotid: Peak systolic velocity corresponds with mild (less than 50%) stenosis.
[2020-07-29] MEDS: COREG PO SCH (16:51)
[2020-07-29] MEDS: LIPITOR PO SCH (20:14)
[2020-07-29] MEDS: ELIQUIS PO SCH (20:14)
[2020-07-29] MEDS: NORCO 7.5-325 PO SCH (20:14)
[2020-07-30 04:48] LABS: BASOPHILS % (AUTO) 0.4 % (0.0-3.0); EOSINOPHILS # (AUTO) 0.5 K/ul (0.0-0.7); HEMATOCRIT 38.6 % (37.0-47.0); HEMOGLOBIN 12.3 g/dl (12.0-16.0); IMMATURE GRANULOCYTE % (AUTO) 0.3 % (0.0-5.0); LYMPHOCYTES # (AUTO) 2.8 K/uL (0.60-3.4); LYMPHOCYTES % (AUTO) 29.1 (10.0-50.0); MEAN CORPUSCULAR HGB CONC 31.9 (31.8-35.4); MEAN CORPUSCULAR VOLUME 91.9 fl (81.0-99.0); MONOCYTES # (AUTO) 0.7 K/uL (0.4-2.0); MONOCYTES % (AUTO) 7.3 (0-10); NEUTROPHILS # (AUTO) 5.5 K/ul (2.0-6.9); NEUTROPHILS % (AUTO) 57.9 % (42.2-75.2); PLATELET COUNT 193 10^3/uL (140-440); WHITE BLOOD COUNT 9.54 K/ul (4.6-10.2)
[2020-07-30 05:01] LABS: ALANINE AMINOTRANSFERASE 12.5 U/L (0-35); ALBUMIN 3.36 g/dL (3.5-5.0); ALKALINE PHOSPHATASE 132.5 U/L (53-141); BILIRUBIN,TOTAL 0.4 mg/dL (0.2-1.3); BLOOD UREA NITROGEN 13.1 mg/dL (7-17); CALCIUM 8.93 mg/dL (8.4-10.2); CARBON DIOXIDE 31.4 mmol/L (22-30.0); CHLORIDE 104.1 mmol/L (98-107); CREATININE 0.73 mg/dL (0.60-1.30); GLUCOSE 117.4 mg/dL (74-106); SODIUM 138.5 mmol/L (134.5-145); TOTAL PROTEIN 6.42 g/dL (6.3-8.2)
[2020-07-30] MEDS: TAMBOCOR PO SCH (08:29)
[2020-07-30] MEDS: NORCO 7.5-325 PO SCH ×2 (08:29→20:33)
[2020-07-30] MEDS: COREG PO SCH ×2 (08:29→16:32)
[2020-07-30] MEDS ORDERED: K-DUR PO SCH (08:30)
[2020-07-30] MEDS: ELIQUIS PO SCH ×2 (08:32→20:34)
--- NOTE | 2020-07-30 09:22 | HP ---
DATE OF SERVICE: 07/29/2020 REASON FOR HOSPITALIZATION/HISTORY OF PRESENT ILLNESS: 69 year old white female who presented to the emergency room complaining of palpitations. She first noticed this last night for a short period of time and then again this morning lasted for approximately 20 minutes. She felt like her heart was racing. She was dizzy and weak. She has a history of atrial fibrillation with an ablation several years ago done by Dr. Blanca. PAST MEDICAL HISTORY: Lumbar radiculopathy Diabetes mellitus type II, last A1c was 6.2 on 05/03 Right pulmonary nodules, recently had a CT of the chest done in May which stated a stable to less noticeable right lung nodule, no new nodules. Right cervical lymphadenopathy, history she sees Dr. Avila Lumbar degenerative joint disease with radiculopathy Bilateral sciatica History of atrial fibrillation with ablation [place] [address] Blanca B12 deficiency Anemia CHF Dyslipidemia COPD, she used to see Dr. Jin Polyarthritis of the knees Hypertension Obesity PAST SURGICAL HISTORY: Hysterectomy Cholecystectomy Heart cath in 2011 Ablation in 2014 She had EGD 08/02 Colonoscopy 07/30 REVIEW OF SYSTEMS: CONSTITUTIONAL: No night sweats. No fatigue, malaise, lethargy. No fever or chills. Generalized weakness. HEENT: Eyes: No visual changes. No eye pain. No eye discharge. ENT: No runny nose. No epistaxis. No sinus pain. No sore throat. No odynophagia. No ear pain. No congestion. RESPIRATORY: No cough, no congestion. No hemoptysis. No shortness of breath. CARDIOVASCULAR: No angina symptoms. No CHF symptoms. No atypical chest pain for CAD. Palpitations. No PND. No orthopnea. GASTROINTESTINAL: No abdominal pain. No nausea or vomiting. No diarrhea or constipation. No hematemesis. No hematochezia. GENITOURINARY: No urgency. No frequency. No dysuria. No hematuria. No obstructive symptoms. No discharge. No pain. No significant abnormal bleeding. MUSCULOSKELETAL: No musculoskeletal pain. No joint swelling. No arthritis. NEUROLOGICAL: No headache. No neck pain. No syncope. No seizures. Dizziness. PSYCHIATRIC: Not anxious. No depression. No suicidal thoughts. No homicidal thoughts. SKIN: No rash. No lesions. No wounds. ENDOCRINE: No unexplained weight loss. No weight gain. HEMATOLOGIC/LYMPHATIC: No anemia. No purpura. No petechiae. No prolonged or excessive bleeding. No palpable lymph nodes. PERSONAL/FAMILY/SOCIAL HISTORY: She is a nonsmoker. She is . 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 No alcohol or illicit drug use. MEDICATIONS: Nitrostat 0.4mg Q 5 minutes times three doses PRN Lorazepam 1mg PO daily PRN Lipitor 40mg PO bedtime Eliquis 5mg PO BID Proair 90mcg Inhalation daily PRN [place] 7.5-325 PO BID Flecainide 200mg PO daily Triamterene-Hydrochlorothiazide 37.5-25mg PO every other day Coreg 12.5mg PO BID ALLERGIES: Morphine PHYSICAL EXAMINATION: VITAL SIGNS: Temperature 98.1, heart rate 75, respiratory rate 22, blood pressure 137/81 and pulse ox 93% HEENT: Head normocephalic, atraumatic. Eyes: Extraocular muscles are intact. Pupils are equal, round and reactive to light and accommodation. Ears: No lesions. Nose appeared normal. Throat: No exudate or erythema. NECK: Supple. No JVD, no carotid bruit. No lymphadenopathy or thyromegaly. LUNGS: Diminished breath sounds bilaterally. Clear to auscultation. Percussion note normal. Chest symmetrical. HEART: S1, S2, no S3. No murmur. Regular heart rate. No cyanosis or clubbing. No ascites. Pulses: Dorsalis pedis and posterior tibial pulses +1 to +2 bilaterally. ABDOMEN: Soft. Nontender. Bowel sounds active. No CVA tenderness. No mass felt. EXTREMITIES: No edema. Full range of motion of all extremities, equal. NEUROLOGIC: No focal deficit. Cranial nerves II through XII are grossly intact. No headache, no double vision or headache. SKIN: Not dry. Intact. Turgor - normal. LYMPHATIC: No palpable lymph nodes/no lymphedema. MUSCULOSKELETAL: Normal joints with no swelling. Muscle tone is normal. LABS: Hgb 12.7, hct 39.8, plt count 204, WBC 10.2, sodium 136, potassium 3.48, BUN 12, creatinine 0.8, glucose 142, ABG on room air O2 95, pH 7.421, pCO2 45, PO2 77, bicarb 29.3, total CO2 31. AST 28.5, ALT 15.4, D-dimer 347. Urine shows trace blood, trace bacteria otherwise negative. ASSESSMENT: 1. Palpitation 2. Dizziness 3. History of Afib with ablation 4. Generalized weakness 5. COPD 6. Diabetes mellitus type 2 7. Hypertension PLAN: 1. We will admit 2. Routine telemetry orders 3. CBC and CMP daily 4. Continue all home medications 5. T4 TSH 6. Telemetry monitoring 7. Regular diet 8. Oxygen 1-2 liters via nasal canula 9. Will follow closely. TIME SPENT: More than 70 minutes. MTDD
[2020-07-30] MEDS: HYDROCHLOROTHIAZIDE PO SCH (13:42)
[2020-07-30] MEDS: COZAAR PO SCH (13:42)
[2020-07-30] MEDS: COLACE PO SCH ×2 (18:13→20:33)
[2020-07-30] MEDS: LIPITOR PO SCH (20:33)
[2020-07-31 05:21] LABS: BASOPHILS % (AUTO) 0.4 % (0.0-3.0); EOSINOPHILS # (AUTO) 0.4 K/ul (0.0-0.7); EOSINOPHILS % (AUTO) 5.3 % (0.0-7.0); HEMATOCRIT 37.8 % (37.0-47.0); HEMOGLOBIN 11.8 g/dl (12.0-16.0); IMMATURE GRANULOCYTE % (AUTO) 0.2 % (0.0-5.0); LYMPHOCYTES # (AUTO) 2.3 K/uL (0.60-3.4); LYMPHOCYTES % (AUTO) 27.8 (10.0-50.0); MEAN CORPUSCULAR HGB CONC 31.2 (31.8-35.4); MEAN CORPUSCULAR VOLUME 92.6 fl (81.0-99.0); MONOCYTES # (AUTO) 0.6 K/uL (0.4-2.0); MONOCYTES % (AUTO) 7.2 (0-10); NEUTROPHILS # (AUTO) 4.9 K/ul (2.0-6.9); NEUTROPHILS % (AUTO) 59.1 % (42.2-75.2); PLATELET COUNT 201 10^3/uL (140-440); RED BLOOD COUNT 4.08 10^6/ul (4.20-5.40); WHITE BLOOD COUNT 8.24 K/ul (4.6-10.2)
[2020-07-31 05:37] LABS: ALANINE AMINOTRANSFERASE 12.2 U/L (0-35); ALBUMIN 3.24 g/dL (3.5-5.0); ALKALINE PHOSPHATASE 130.4 U/L (53-141); ASPARTATE AMINO TRANSFERASE 21.7 U/L (14-36); BILIRUBIN,TOTAL 0.46 mg/dL (0.2-1.3); BLOOD UREA NITROGEN 11.9 mg/dL (7-17); CALCIUM 8.82 mg/dL (8.4-10.2); CARBON DIOXIDE 34.4 mmol/L (22-30.0); CHLORIDE 101.4 mmol/L (98-107); CREATININE 0.76 mg/dL (0.60-1.30); GLUCOSE 113.6 mg/dL (74-106); SODIUM 137.3 mmol/L (134.5-145); TOTAL PROTEIN 6.24 g/dL (6.3-8.2)
[2020-07-31] MEDS: HYDROCHLOROTHIAZIDE PO SCH (08:27)
[2020-07-31] MEDS: COLACE PO SCH ×2 (08:27→20:33)
[2020-07-31] MEDS: COZAAR PO SCH (08:28)
[2020-07-31] MEDS: NORCO 7.5-325 PO SCH ×2 (08:28→20:33)
[2020-07-31] MEDS: COREG PO SCH ×2 (08:28→16:36)
[2020-07-31] MEDS: TAMBOCOR PO SCH (08:28)
[2020-07-31] MEDS: ELIQUIS PO SCH ×2 (08:29→20:33)
[2020-07-31] MEDS ORDERED: DYAZIDE PO SCH (09:00)
--- NOTE | 2020-07-31 09:40 | PCM.PROG ---
Attending Provider: ATTENDING PROVIDER: Dr. TEZ MCLEOD This patient is seen with Zakia Ogden, Nurse Practitioner. DATE OF SERVICE: 07/31/20 SUBJECTIVE: This 69 year old /WHITE F was hospitalized 07/29/20. The patient is resting the bed comfortably. The patient denies any pain. She continued to alternate with bigeminy rhythm. She reports she can feel this occasionally but is not discomforting. Holter monitor is on. We will continue to monitor. The patient does not wish to continue Potassium. We will stop this today. Level has normalized. REVIEW OF SYSTEMS: CONSTITUTIONAL: No night sweats. No fatigue, malaise, lethargy. No fever or chills. HEENT: Eyes: No visual changes. No eye pain. No eye discharge. ENT: No runny nose. No epistaxis. No sinus pain. No odynophagia. No congestion. RESPIRATORY: No cough, no congestion. No hemoptysis. No shortness of breath. CARDIOVASCULAR: No angina symptoms. No CHF symptoms. No atypical chest pain for CAD. No palpitations. No orthopnea.. GASTROINTESTINAL: No abdominal pain. No nausea or vomiting. No diarrhea or constipation. No hematemesis. No hematochezia. GENITOURINARY: No urgency. No frequency. No dysuria. No hematuria. No obstructive symptoms. No discharge. No pain. No significant abnormal bleeding. MUSCULOSKELETAL: No musculoskeletal pain; no joint swelling. NEUROLOGICAL: Awake, alert, oriented to time, place and person. No headache. No neck pain. No syncope. No seizures. No dizziness. PSYCHIATRIC: Not anxious. No depression. No suicidal thoughts. No homicidal thoughts. SKIN: No rash. No lesions. No wounds. ENDOCRINE: No unexplained weight loss. No weight gain. HEMATOLOGIC/LYMPHATIC: No anemia. No purpura. No petechiae. No prolonged or excessive bleeding. No palpable lymph nodes. PHYSICAL EXAMINATION: GENERAL: The patient is awake, alert and oriented, lying in bed in no distress. VITAL SIGNS: Temperature 98.8 F, Pulse 56, Respiratory Rate 20, BP 134/69, Pulse Ox 98% HEENT: Head normocephalic, atraumatic. Eyes: Extraocular muscles are intact. Pupils are equal, round and reactive to light and accommodation. Ears: No lesions. Nose appeared normal. Throat: No exudate or erythema. NECK: Supple. No JVD, no carotid bruit. No lymphadenopathy or thyromegaly. LUNGS: Diminished breath sounds. Clear to auscultation. Percussion note normal. Chest symmetrical. HEART: S1, S2, no S3. Irregular heart rate. No murmurs. No cyanosis or clubbing. No ascites. Pulses: Dorsalis pedis and posterior tibial pulses +1 to +2 both sides. ABDOMEN: Soft. Non-tender. Bowel sounds active. No CVA tenderness. No mass felt. EXTREMITIES: No edema. Full range of motion of all extremities, equal. NEUROLOGIC: No focal deficit. Cranial nerves II through XII are grossly intact. No headache, no double vision or headache. SKIN: Not dry. Intact. Turgor-normal. LYMPHATIC: No palpable lymph nodes/no lymphedema. MUSCULOSKELETAL: Normal joints with no swelling. Muscle tone is normal. LAB REVIEW: 07/31/20 05:10 07/31/20 05:10 07/31/20 05:10: Sodium 137.3, Potassium 3.93, Chloride 101.4, Carbon Dioxide 34.4 H, Anion Gap 5.43, BUN 11.9, Creatinine 0.76, Estimated GFR (MDRD) 75.00, BUN/Creatinine Ratio 15.65, Glucose 113.6 H, Calcium 8.82, Total Bilirubin 0.46, AST 21.7, ALT 12.2, Alkaline Phosphatase 130.4, Total Protein 6.24 L, Albumin 3.24 L, Globulin 3.00, Albumin/Globulin Ratio 1.08 07/31/20 05:10: WBC 8.24, RBC 4.08 L, Hgb 11.8 L, Hct 37.8, MCV 92.6, MCH 28.9, MCHC 31.2 L, RDW Coeff of Vel 14.0, Plt Count 201, Immature Gran % (Auto) 0.2, Neut % (Auto) 59.1, Lymph % (Auto) 27.8, [place] % (Auto) 7.2, Eos % (Auto) 5.3, Baso % (Auto) 0.4, Neut # (Auto) 4.9, Lymph # (Auto) 2.3, [place] # (Auto) 0.6, Eos # (Auto) 0.4, Baso # (Auto) 0.0, Immature Gran # (Auto) 0.0 ASSESSMENT: Please see below. 1. Palpitation 2. Dizziness 3. History of Afib with ablation 4. Generalized weakness 5. COPD 6. Diabetes mellitus type 2 7. Hypertension PLAN: 1. Discontinue Potassium 2. Continue Holter Monitor 3. Will plan to set her back up with Dr. Blanca upon discharge. Plan and coordination of the patient's care discussed in the presence of Bi Specialist and nurse. SCRIBED BY: Goldie ALCANTAR scribed while in presence of service performed by Dr. Mcleod/Zakia Ogden APRN on 07/31/20 ([id number])
--- NOTE | 2020-07-31 14:15 | PN ---
DATE OF SERVICE: 07/30/2020 SUBJECTIVE: 69 year old white female hospitalized with palpitations. The patient's PVC's in the form of bigeminy unifocal and frequent. No symptoms of CHF but the patient has shortness of breath on minimal exertion lately more so than before. History of ablation. The patient is on Eliquis because of paroxysmal atrial fibrillation followed by Dr. Blanca. REVIEW OF SYSTEMS: CONSTITUTIONAL: No night sweats. No fatigue, malaise, lethargy. No fever or chills. HEENT: Eyes: No visual changes. No eye pain. No eye discharge. ENT: No runny nose. No epistaxis. No sinus pain. No sore throat. No odynophagia. No congestion. RESPIRATORY: No cough, no congestion. No hemoptysis. No shortness of breath. CARDIOVASCULAR: No angina symptoms. No CHF symptoms. No atypical chest pain for CAD. No palpitations. No PND. No orthopnea. GASTROINTESTINAL: No abdominal pain. No nausea or vomiting. No diarrhea or constipation. No hematemesis. No hematochezia. GENITOURINARY: No urgency. No frequency. No dysuria. No hematuria. No obstructive symptoms. No discharge. No pain. No significant abnormal bleeding. MUSCULOSKELETAL: No musculoskeletal pain; no joint swelling. NEUROLOGICAL: No headache. No neck pain. No syncope. No seizures. No dizziness. PSYCHIATRIC: Not anxious. No depression. No suicidal thoughts. No homicidal thoughts. SKIN: No rash. No lesions. No wounds. ENDOCRINE: No unexplained weight loss. No weight gain. HEMATOLOGIC/LYMPHATIC: No anemia. No purpura. No petechiae. No prolonged or excessive bleeding. No palpable lymph nodes. PHYSICAL EXAMINATION: VITAL SIGNS: Temperature 97.6, pulse 60, respiratory rate 16, blood pressure 117/67, pulse ox 95%. HEENT: Head normocephalic, atraumatic. Eyes: Extraocular muscles are intact. Pupils are equal, round and reactive to light and accommodation. Ears: No lesions. Nose appeared normal. Throat: No exudate or erythema. NECK: Supple. No JVD, no carotid bruit. No lymphadenopathy or thyromegaly. LUNGS: Decreased breath sounds but clear to auscultation. Percussion note normal. Chest symmetrical. HEART: S1, S2, no S3. No murmurs. No cyanosis or clubbing. No ascites. Pulses: Dorsalis pedis and posterior tibial pulses +1 to +2 bilaterally. ABDOMEN: Soft. Nontender. Bowel sounds active. No CVA tenderness. No mass felt. EXTREMITIES: No edema. Full range of motion of all extremities, equal. NEUROLOGIC: No focal deficit. Cranial nerves II through XII are grossly intact. No headache, no double vision or headache. SKIN: Not dry. Intact. Turgor - normal. LYMPHATIC: No palpable lymph nodes/no lymphedema. MUSCULOSKELETAL: Normal joints with no swelling. Muscle tone is normal. LABS: Hgb 12.3, hct 38, WBC 9,500 normal differential, creatinine 0.7, BUN 13, potassium 3.8, TSH normal. The patient's EKG unchanged left axis LVH, non- intraventricular nonspecific intraventricular conduced delay. The patient had an echo cardiogram done this morning which showed LVH with enlarged LA cavity which is borderline. LV contractility seems to be normal with ejection fraction of 45- 50% because of enlarged LV cavity. Cavity is enlarged. The patient's echo done a year ago compared to that, the patient's LV function seems to have deteriorated some. The patient's carotid scan was done yesterday which showed nonocclusive carotid artery disease. We will do stress echo as an outpatient. We will do Holter monitor today. Rhythm strip showed short runs of ventricular bigeminy asymptomatic. PLAN: 1. Decrease the dose of Coreg to 6.25mg BID 2. Add Cozaar 50-12.5 half a tablet a day as an unloading agent. 3. Continue Eliquis 4. Continue Atorvastatin. TIME SPENT: More than 30 minutes. Plan and coordination of the patient's care discussed in the presence of nurse. JONATHAN
[2020-07-31] MEDS: LIPITOR PO SCH (20:32)
[2020-08-01 05:46] LABS: BASOPHILS % (AUTO) 0.4 % (0.0-3.0); EOSINOPHILS # (AUTO) 0.5 K/ul (0.0-0.7); EOSINOPHILS % (AUTO) 5.2 % (0.0-7.0); HEMATOCRIT 39.5 % (37.0-47.0); HEMOGLOBIN 12.5 g/dl (12.0-16.0); IMMATURE GRANULOCYTE % (AUTO) 0.3 % (0.0-5.0); LYMPHOCYTES # (AUTO) 2.6 K/uL (0.60-3.4); LYMPHOCYTES % (AUTO) 25.9 (10.0-50.0); MEAN CORPUSCULAR HGB CONC 31.6 (31.8-35.4); MEAN CORPUSCULAR VOLUME 91.4 fl (81.0-99.0); MONOCYTES # (AUTO) 0.7 K/uL (0.4-2.0); MONOCYTES % (AUTO) 7.2 (0-10); NEUTROPHILS # (AUTO) 6.1 K/ul (2.0-6.9); PLATELET COUNT 212 10^3/uL (140-440); RED BLOOD COUNT 4.32 10^6/ul (4.20-5.40); WHITE BLOOD COUNT 10.05 K/ul (4.6-10.2)
[2020-08-01 05:58] LABS: ALANINE AMINOTRANSFERASE 13.6 U/L (0-35); ALBUMIN 3.63 g/dL (3.5-5.0); ALKALINE PHOSPHATASE 146.4 U/L (53-141); ASPARTATE AMINO TRANSFERASE 28.7 U/L (14-36); BILIRUBIN,TOTAL 0.41 mg/dL (0.2-1.3); BLOOD UREA NITROGEN 14.3 mg/dL (7-17); CALCIUM 9.35 mg/dL (8.4-10.2); CARBON DIOXIDE 33.4 mmol/L (22-30.0); CHLORIDE 99.5 mmol/L (98-107); CREATININE 0.83 mg/dL (0.60-1.30); GLUCOSE 118.7 mg/dL (74-106); SODIUM 136.5 mmol/L (134.5-145); TOTAL PROTEIN 6.79 g/dL (6.3-8.2)
[2020-08-01 06:01] VITALS: BP 158/78; TEMP 97.7
[2020-08-01] MEDS: TAMBOCOR PO SCH (08:37)
[2020-08-01] MEDS: COZAAR PO SCH (08:37)
[2020-08-01] MEDS: COREG PO SCH (08:38)
[2020-08-01] MEDS: HYDROCHLOROTHIAZIDE PO SCH (08:38)
[2020-08-01] MEDS: ELIQUIS PO SCH (08:38)
[2020-08-01] MEDS: NORCO 7.5-325 PO SCH (08:38)
[2020-08-01] MEDS: COLACE PO SCH (08:38)
--- NOTE | 2020-08-01 09:22 | PCM.PROG ---
Attending Provider: ATTENDING PROVIDER: Dr. TEZ MCLEOD This patient is seen with Zakia Ogden, Nurse Practitioner. DATE OF SERVICE: 08/01/20 SUBJECTIVE: This 69 year old /WHITE F was hospitalized 07/29/20. The patient is resting comfortably in the bed. Holter was removed yesterday and showed 1% of beats scanned were PVC's. We will send her home with the medication adjustments. The patient is to have outpatient Dobutamine stress echo sestamibi. We will check on scheduled appointment with Dr. Blanca. The patient is stable for discharge. REVIEW OF SYSTEMS: CONSTITUTIONAL: No night sweats. No fatigue, malaise, lethargy. No fever or chills. HEENT: Eyes: No visual changes. No eye pain. No eye discharge. ENT: No runny nose. No epistaxis. No sinus pain. No odynophagia. No congestion. RESPIRATORY: No cough, no congestion. No hemoptysis. No shortness of breath. CARDIOVASCULAR: No angina symptoms. No CHF symptoms. No atypical chest pain for CAD. No palpitations. No orthopnea.. GASTROINTESTINAL: No abdominal pain. No nausea or vomiting. No diarrhea or constipation. No hematemesis. No hematochezia. GENITOURINARY: No urgency. No frequency. No dysuria. No hematuria. No obstructive symptoms. No discharge. No pain. No significant abnormal bleeding. MUSCULOSKELETAL: No musculoskeletal pain; no joint swelling. NEUROLOGICAL: Awake, alert, oriented to time, place and person. No headache. No neck pain. No syncope. No seizures. No dizziness. PSYCHIATRIC: Not anxious. No depression. No suicidal thoughts. No homicidal thoughts. SKIN: No rash. No lesions. No wounds. ENDOCRINE: No unexplained weight loss. No weight gain. HEMATOLOGIC/LYMPHATIC: No anemia. No purpura. No petechiae. No prolonged or excessive bleeding. No palpable lymph nodes. PHYSICAL EXAMINATION: GENERAL: The patient is awake, alert and oriented, lying in bed in no distress. VITAL SIGNS: Temperature 97.7 F, Pulse 42, Respiratory Rate 20, BP 158/78, Pulse Ox 94% HEENT: Head normocephalic, atraumatic. Eyes: Extraocular muscles are intact. Pupils are equal, round and reactive to light and accommodation. Ears: No lesions. Nose appeared normal. Throat: No exudate or erythema. NECK: Supple. No JVD, no carotid bruit. No lymphadenopathy or thyromegaly. LUNGS: Diminished breath sounds. Clear to auscultation. Percussion note normal. Chest symmetrical. HEART: S1, S2, no S3. No murmurs. No cyanosis or clubbing. No ascites. Pulses: Dorsalis pedis and posterior tibial pulses +1 to +2 both sides. ABDOMEN: Soft. Non-tender. Bowel sounds active. No CVA tenderness. No mass felt. EXTREMITIES: No edema. Full range of motion of all extremities, equal. NEUROLOGIC: No focal deficit. Cranial nerves II through XII are grossly intact. No headache, no double vision or headache. SKIN: Not dry. Intact. Turgor-normal. LYMPHATIC: No palpable lymph nodes/no lymphedema. MUSCULOSKELETAL: Normal joints with no swelling. Muscle tone is normal. LAB REVIEW: 08/01/20 05:36 08/01/20 05:36 08/01/20 05:36: Sodium 136.5, Potassium 4.02, Chloride 99.5, Carbon Dioxide 33.4 H, Anion Gap 7.62, BUN 14.3, Creatinine 0.83, Estimated GFR (MDRD) 68.00, BUN/Creatinine Ratio 17.22, Glucose 118.7 H, Calcium 9.35, Total Bilirubin 0.41, AST 28.7, ALT 13.6, Alkaline Phosphatase 146.4 H, Total Protein 6.79, Albumin 3.63, Globulin 3.16, Albumin/Globulin Ratio 1.14 08/01/20 05:36: WBC 10.05, RBC 4.32, Hgb 12.5, Hct 39.5, MCV 91.4, MCH 28.9, M CHC 31.6 L, RDW Coeff of Vel 14.0, Plt Count 212, Immature Gran % (Auto) 0.3, Neut % (Auto) 61.0, Lymph % (Auto) 25.9, [place] % (Auto) 7.2, Eos % (Auto) 5.2, Baso % (Auto) 0.4, Neut # (Auto) 6.1, Lymph # (Auto) 2.6, [place] # (Auto) 0.7, Eos # (Auto) 0.5, Baso # (Auto) 0.0, Immature Gran # (Auto) 0.0 ASSESSMENT: Please see below. 1. Palpitation 2. Dizziness 3. History of Afib with ablation 4. Generalized weakness 5. COPD 6. Diabetes mellitus type 2 7. Hypertension PLAN: 1. Continue medications as adjusted 2. Continue Eliquis 3. See her next week in the office 4. Discharge home 5. Dobutamine stress sestamibi as outpatient 6. Scheduled followup appointment with Dr. Blanca. Plan and coordination of the patient's care discussed in the presence of Derivatives Trader and nurse. SCRIBED BY: Goldie ALCANTAR scribed while in presence of service performed by Dr. Mcleod/Zakia Ogden APRN on 08/01/20 ([id number])
--- NOTE | 2020-08-01 12:25 | ECHO2D ---
Date of Exam: 07/30/2020 Ordering Physician: DR. TEZ FREEMAN Room #: 117 Reason for Echo: HTN, COPD, CHEST PAIN, TACHYCARDIA M-Mode Normal Adult Results LV Dimensions Normal Adult Results AoV Opening excursions >1.6 >1.6 LVEDD-base- 3.5-5.8 5.9 Ao root dimensions 2.0-3.7 3.3 LVESD-base- 3.1-4.6 L. Atrium dimensions 1.9-3.8 5.7 Post. Wall thickness 0.8-1.1 1.1 IV septum (thickness) 0.7-1.2 1.3 Post. Wall excursion 0.72-1.3 NORMAL Septal motion NORMAL Systolic motion R. Ventricular cavity 1.5-2.0 NORMAL LVEF 60% 45% Paradoxical septal wall motion NORMAL 2-D : 2-D M Mode Echocardiogram was performed using apical four chamber and left parasternal long and short axis views. Mitral, tricuspid and aortic valves appear to be normal. Contractility of the left ventricle seems to be normal, so is the cavity size. ENLARGED LEFT ATRIAL AND LEFT VENTRICLE CAVITIES. Aortic roots appear to be normal. There is no pericardial effusion. There is no thrombus noted in the left ventricle or left atrial cavity. No mitral valve prolapse noted. M-MODE: MV: NORMAL AV: NORMAL TV: NORMAL PV: CHAMBER SIZE: ENLARGED LEFT ATRIAL AND LEFT VENTRICLE CAVITIES WALL MOTION: NORMAL PERICARDIUM: NORMAL INTERPRETATION: 1. LEFT VENTRICLE HYPERTROPHY WITH ENLARGED LEFT ATRIAL CAVITY (5.7 CM) 2. NORMAL LEFT VENTRICULAR CONTRACTILITY--EJECTION FRACTION 45% 3. NORMAL VALVES MTDD
--- NOTE | 2020-08-01 12:28 | CM.DICTOOL ---
ADMISSION: 07/29/20 13:42 DISCHARGE: 2019 DATE OF SERVICE: 08/01/20 FINAL DIAGNOSIS PALPITATION- RESOLVED DIZZINESS- RESOLVED HISTORY OF AFIB WITH ABLATION DILATED CARDIOMYOPATHY COPD DM TYPE 2 HYPERTENSION MEDICAL HISTORY: PVCs DYSLIPIDEMIA HYPERTENSION CHF ATRIAL FIBRILLATION COPD POLYARTHRITIS CHRONIC BACK PAIN ANXIETY INSOMNIA SURGICAL HISTORY: CHOLECYSTECTOMY CARDIAC ABLATION FOR ATRIAL FIBRILLATION LAST VITALS Temp Pulse Resp BP Pulse Ox 97.7 F 42 L 20 158/78 H 94 L 08/01/20 06:00 08/01/20 06:00 08/01/20 06:00 08/01/20 06:00 08/01/20 06:00 TAKE THESE MEDICATIONS AT HOME Hydrocodone Bitart/Acetaminophen (Hydrocodone Bit/Acetaminophen 7.5/325 Mg Table t) 1 tab PO BID [facility] Last Admin: 08/01/20 08:38 Dose: 1 tab Documented by: Albuterol Sulfate (Albuterol Sulfate (Ventolin Hfa) 18 Gm 1 Puff With Spacer) 2 puff IH DAILY PRN PRN Reason: Bronchospasm Apixaban (Apixaban 5 Mg Tab) 5 mg PO BID [facility] Last Admin: 08/01/20 08:38 Dose: 5 mg Documented by: Atorvastatin Calcium (Atorvastatin Calcium 20 Mg Tablet) 40 mg PO BEDTIME [facility] Last Admin: 07/31/20 20:32 Dose: 40 mg Documented by: Carvedilol (Carvedilol 6.25 Mg Tablet) 6.25 mg PO BIDWM [facility] -- ( CHANGED ) Last Admin: 08/01/20 08:38 Dose: 6.25 mg Documented by: Docusate Sodium (Docusate Sodium 100 Mg Capsule) 100 mg PO BID [facility] -- ( NEW) Last Admin: 08/01/20 08:38 Dose: 100 mg Documented by: Flecainide Acetate (Flecainide Acetate 100 Mg Tablet) 200 mg PO DAILY [facility] Last Admin: 08/01/20 08:37 Dose: 200 mg Documented by: Hydrochlorothiazide (Hydrochlorothiazide 25 Mg Tablet) 6.25 mg PO DAILY [facility] Last Admin: 08/01/20 08:38 Dose: 6.25 mg Documented by: Lorazepam (Lorazepam 1 Mg Tablet) 1 mg PO DAILY PRN PRN Reason: Anxiety Losartan Potassium (Losartan Potassium 25 Mg Tablet) 25 mg PO DAILY [facility] Last Admin: 08/01/20 08:37 Dose: 25 mg Documented by: Nitroglycerin (Nitroglycerin 0.4 Mg Tab.Subl) 0.4 mg SL Q5MIN X 3 DOSES PRN PRN Reason: Chest Pain ALLERGIES morphine Adverse Reaction (Verified 07/29/20 10:35) DISCONTINUED MEDICATIONS Carvedilol (Carvedilol 12.5 Mg Tablet) 12.5 mg PO BIDWM [facility] -- ( REDUCED DOSAGE) Triamterene/HCTZ (Triamterene/Hydrochlorothiazid 37.5/25 Mg Capsule) 1 cap PO E VERY OTHER DAY [facility] - ( CHANGED) NEW PRESCRIPTIONS: Carvedilol (Carvedilol 6.25 Mg Tablet) 6.25 mg PO BIDWM [facility] -- ( CHANGED ) Docusate Sodium (Docusate Sodium 100 Mg Capsule) 100 mg PO BID [facility] -- ( NEW) Hydrochlorothiazide (Hydrochlorothiazide 25 Mg Tablet) 6.25 mg PO DAILY [facility] - ( NEW) Losartan Potassium (Losartan Potassium 25 Mg Tablet) 25 mg PO DAILY [facility] - ( NEW) SMOKING: NON- APPLICABLE DISEASE SPECIFIC EDUCATION: PALPITATIONS CHEST PAIN MD FOLLOW-UP COVID 19 LAB REVIEW: 08/01/20 05:36 08/01/20 05:36 08/01/20 05:36: Sodium 136.5, Potassium 4.02, Chloride 99.5, Carbon Dioxide 33.4 H, Anion Gap 7.62, BUN 14.3, Creatinine 0.83, Estimated GFR (MDRD) 68.00, BUN/Creatinine Ratio 17.22, Glucose 118.7 H, Calcium 9.35, Total Bilirubin 0.41, AST 28.7, ALT 13.6, Alkaline Phosphatase 146.4 H, Total Protein 6.79, Albumin 3.63, Globulin 3.16, Albumin/Globulin Ratio 1.14 08/01/20 05:36: WBC 10.05, RBC 4.32, Hgb 12.5, Hct 39.5, MCV 91.4, MCH 28.9, MCHC 31.6 L, RDW Coeff of Vel 14.0, Plt Count 212, Immature Gran % (Auto) 0.3, Neut % (Auto) 61.0, Lymph % (Auto) 25.9, [place] % (Auto) 7.2, Eos % (Auto) 5.2, Baso % (Auto) 0.4, Neut # (Auto) 6.1, Lymph # (Auto) 2.6, [place] # (Auto) 0.7, Eos # (Auto) 0.5, Baso # (Auto) 0.0, Immature Gran # (Auto) 0.0 PLAN: DISCHARGE HOME TODAY, 2019, INDEPENDENTLY ACTIVITY: UP TOLERATED WITH FREQUENT REST PERIODS NO STRENOUS ACTIVITY DIET: HEART HEALTHY MD FOLLOW UP: SEE DR. FREEMAN/ PARMINDER ABREU APRN/ REBECCA CAMPBELL APRN IN THE OFFICE ON 2019@ [address] ARITA @ [facility] ( NO APPOINTMENT AVAILABLE IN [place] ) [facility], SUITE [facility], [facility] , ( FOLLOW THE SIGNS) [place] [id number]. AUGUST 27, 2020 @ 1120 -- PHONE # [phone] OUT PATIENT PROCEDURE: STRESS ECHO SESTAMIBI/ DOBUTIMINE SESTAMIBI AT [facility] 08/19/2020 @ 830 AM CODE STATUS: FULL CODE MRS RODRIGUEZ IS ALERT AND ORIENTED X 4. BREATH SOUNDS ARE CLEAR, NO REPORTS OF COUGHING. REPORTS PALPITATIONS DURING THE EPISODES OF BIGEMINY. SHE STATES SHE CAN WALK A SHORT DISTANCE WITHOUT GETTING OUT OF BREATH, HOWEVER VERY FAR ( OVER 15-20 FEET ) SHE DOES GET OUT OF BREATH. CONTINENT OF BOWEL AND BLADDER. LAST BM 07/31/2020. STARTED ON COLACE. APPETITE AND FLUID INTAKE GOOD. SHE AMBULATES INDEPENDENTLY. SHE LIVES ALONE. SHE STATES HER SISTER LIVES ACROSS THE STREET AND HER "MAN-FRIEND" PERFORMS THE STRENUOUS TASK WHEN HE VISITS. MD PARMINDER GARCIA APRN ALYCE HANNAN, APRN
--- NOTE | 2020-08-01 14:06 | PN ---
DATE OF SERVICE: 08/01/2020 SUBJECTIVE: The patient was seen and examined with the Nurse Practitioner. The patient's condition is stable. She was explained about dilated cardiomyopathy for stress test. She agreed to have it done, Dobutamine Stress Echo Sestamibi as an outpatient. The patient's medication changes discussed with her which decreasing the dose of Coreg and added Hyzaar half a tablet 50-12.5. The patient's Holter didn't show any remarkable arrhythmias or had any SVT or tachyarrhythmias. CONDITION: Stable. TIME SPENT: More than 30 minutes. Plan and coordination of the patient's care discussed in the presence of nurse. JONATHAN
--- NOTE | 2020-08-01 14:07 | PN ---
07/29/2020: Level 5 07/30/2020: Intermediate 07/31/2020: Intermediate 08/01/2020: D as in discharge MTDD
--- NOTE | 2020-08-04 11:18 | PN ---
DATE OF SERVICE: 07/29/2020 SUBJECTIVE: The patient was seen and examined in the emergency room. The patient was brought to the emergency room with complaint of palpitation, dizziness and weakness. The patient had ablation done 6 years ago. In the emergency room the patient is in sinus rhythm. PHYSICAL EXAMINATION: HEENT: Head normocephalic, atraumatic. Eyes: Extraocular muscles are intact. Pupils are equal, round and reactive to light and accommodation. Ears: No lesions. Nose appeared normal. Throat: No exudate or erythema. NECK: Supple. No JVD, no carotid bruit. No lymphadenopathy or thyromegaly. LUNGS: Clear to auscultation. Percussion note normal. Chest symmetrical. HEART: S1, S2, no S3. No murmurs. Symptoms are this morning 15 minutes of palpitation, twice. The patient's rhythm sinus shows sinus with PVC's bigeminy at times. She is practically asymptomatic with normal systolic blood pressure. No cyanosis or clubbing. No ascites. Pulses: Dorsalis pedis and posterior tibial pulses +1 to +2 bilaterally. ABDOMEN: Soft. Nontender. Bowel sounds active. No CVA tenderness. No mass felt. EXTREMITIES: No edema. Full range of motion of all extremities, equal. NEUROLOGIC: No focal deficit. Cranial nerves II through XII are grossly intact. No headache, no double vision or headache. SKIN: Not dry. Intact. Turgor - normal. LYMPHATIC: No palpable lymph nodes/no lymphedema. MUSCULOSKELETAL: Normal joints with no swelling. Muscle tone is normal. The patient is going to be hospitalized and monitored. She doesn't have any evidence of any acute myocardial event. No chest pain and no chest pressure. She is going to be on routine telemetry orders. The patient's History and Physical was done by Nurse Practitioner. TIME SPENT: More than 30 minutes. Plan and coordination of the patient's care discussed in the presence of nurse. JONATHAN
--- NOTE | 2020-08-04 12:50 | PN ---
DATE OF SERVICE: 07/31/2020 SUBJECTIVE: The patient was seen and examined with the Nurse Practitioner. The patient's condition is stable. The patient has occasional ventricular bigeminy with PVC's. Holter was done which showed 1% PVC of total beats scanned some in the form of ventricular bigeminy unifocal. The patient's condition is so far stable with no evidence of any tachyarrhythmias. She has dilated left ventricle with enlarged left atrial cavity. The patient has been started on Hyzaar 50-12.5 half a tablet a day along with reducing the dose of Coreg to 6.25mg BID. The patient's condition it stable. Changes discussed with the patient. The patient will undergo stress test as an outpatient. TIME SPENT: More than 30 minutes. Plan and coordination of the patient's care discussed in the presence of nurse. JONATHAN
--- NOTE | 2020-08-04 14:44 | DS ---
DATE OF SERVICE: 08/01/2020 FINAL DIAGNOSIS: PALPITATION- RESOLVED DIZZINESS- RESOLVED HISTORY OF AFIB WITH ABLATION DILATED CARDIOMYOPATHY COPD DM TYPE 2 HYPERTENSION MEDICAL HISTORY: PVCs DYSLIPIDEMIA HYPERTENSION CHF ATRIAL FIBRILLATION COPD POLYARTHRITIS CHRONIC BACK PAIN ANXIETY INSOMNIA SURGICAL HISTORY: CHOLECYSTECTOMY CARDIAC ABLATION FOR ATRIAL FIBRILLATION LAST VITALS: Temp Pulse Resp BP Pulse Ox 97.7 F 42 L 20 158/78 H 94 L 08/01/20 06:00 08/01/20 06:00 08/01/20 06:00 08/01/20 06:00 08/01/20 06:00 DISCHARGE INSTRUCTIONS: DISCHARGE HOME TODAY, 2019, INDEPENDENTLY. MD FOLLOW UP: SEE DR. FREEMAN/ PARMINDER ABREU APRN/ REBECCA CAMPBELL APRN IN THE OFFICE ON TUESDAY, 2019@ [address] BLANCA @ [facility] ( NO APPOINTMENT AVAILABLE IN [place] ) [address] [place] [address], [address], [facility] , ( FOLLOW THE SIGNS). [facility] [id number]. AUGUST 27, 2020 @ 1120 -- PHONE # [phone]. OUT PATIENT PROCEDURE: STRESS ECHO SESTAMIBI/ DOBUTIMINE SESTAMIBI AT [facility] 08/19/2020 @ 830 AM. CODE STATUS: FULL CODE TAKE THESE MEDICATIONS AT HOME: Hydrocodone Bitart/Acetaminophen (Hydrocodone Bit/Acetaminophen 7.5/325 Mg Tablet) 1 tab PO BID [facility] Last Admin: 08/01/20 08:38 Dose: 1 tab Documented by: Albuterol Sulfate (Albuterol Sulfate (Ventolin Hfa) 18 Gm 1 Puff With Spacer) 2 puff IH DAILY PRN PRN Reason: Bronchospasm Apixaban (Apixaban 5 Mg Tab) 5 mg PO BID [facility] Last Admin: 08/01/20 08:38 Dose: 5 mg Documented by: Atorvastatin Calcium (Atorvastatin Calcium 20 Mg Tablet) 40 mg PO BEDTIME [facility] Last Admin: 07/31/20 20:32 Dose: 40 mg Documented by: Carvedilol (Carvedilol 6.25 Mg Tablet) 6.25 mg PO BIDWM [facility] -- ( CHANGED ) Last Admin: 08/01/20 08:38 Dose: 6.25 mg Documented by: Docusate Sodium (Docusate Sodium 100 Mg Capsule) 100 mg PO BID [facility] -- ( NEW) Last Admin: 08/01/20 08:38 Dose: 100 mg Documented by: Flecainide Acetate (Flecainide Acetate 100 Mg Tablet) 200 mg PO DAILY [facility] Last Admin: 08/01/20 08:37 Dose: 200 mg Documented by: Hydrochlorothiazide (Hydrochlorothiazide 25 Mg Tablet) 6.25 mg PO DAILY [facility] Last Admin: 08/01/20 08:38 Dose: 6.25 mg Documented by: Lorazepam (Lorazepam 1 Mg Tablet) 1 mg PO DAILY PRN PRN Reason: Anxiety Losartan Potassium (Losartan Potassium 25 Mg Tablet) 25 mg PO DAILY [facility] Last Admin: 08/01/20 08:37 Dose: 25 mg Documented by: Nitroglycerin (Nitroglycerin 0.4 Mg Tab.Subl) 0.4 mg SL Q5MIN X 3 DOSES PRN PRN Reason: Chest Pain ALLERGIES: morphine Adverse Reaction (Verified 07/29/20 10:35) DISCONTINUED MEDICATIONS: Carvedilol (Carvedilol 12.5 Mg Tablet) 12.5 mg PO BIDWM [facility] -- ( REDUCED DOSAGE) Triamterene/HCTZ (Triamterene/Hydrochlorothiazid 37.5/25 Mg Capsule) 1 cap PO EVERY OTHER DAY [facility] - ( CHANGED) NEW PRESCRIPTIONS: Carvedilol (Carvedilol 6.25 Mg Tablet) 6.25 mg PO BIDWM [facility] -- ( CHANGED ) Docusate Sodium (Docusate Sodium 100 Mg Capsule) 100 mg PO BID [facility] -- ( NEW) Hydrochlorothiazide (Hydrochlorothiazide 25 Mg Tablet) 6.25 mg PO DAILY [facility] - ( NEW) Losartan Potassium (Losartan Potassium 25 Mg Tablet) 25 mg PO DAILY [facility] - ( NEW) SMOKING: NON- APPLICABLE DISEASE SPECIFIC EDUCATION: PALPITATIONS CHEST PAIN MD FOLLOW-UP COVID 19 LAB REVIEW: 08/01/20 05:36 08/01/20 05:36 08/01/20 05:36: Sodium 136.5, Potassium 4.02, Chloride 99.5, Carbon Dioxide 33.4 H, Anion Gap 7.62, BUN 14.3, Creatinine 0.83, Estimated GFR (MDRD) 68.00, BUN/Creatinine Ratio 17.22, Glucose 118.7 H, Calcium 9.35, Total Bilirubin 0.41, AST 28.7, ALT 13.6, Alkaline Phosphatase 146.4 H, Total Protein 6.79, Albumin 3.63, Globulin 3.16, Albumin/Globulin Ratio 1.14 08/01/20 05:36: WBC 10.05, RBC 4.32, Hgb 12.5, Hct 39.5, MCV 91.4, MCH 28.9, MCHC 31.6 L, RDW Coeff of Vel 14.0, Plt Count 212, Immature Gran % (Auto) 0.3, Neut % (Auto) 61.0, Lymph % (Auto) 25.9, [place] % (Auto) 7.2, Eos % (Auto) 5.2, Baso % (Auto) 0.4, Neut # (Auto) 6.1, Lymph # (Auto) 2.6, [place] # (Auto) 0.7, Eos # (Auto) 0.5, Baso # (Auto) 0.0, Immature Gran # (Auto) 0.0 ACTIVITY: UP TOLERATED WITH FREQUENT REST PERIODS NO STRENUOUS ACTIVITY DIET: HEART HEALTHY HOSPITAL COURSE: The patient was hospitalized with complaint of having palpitation frequently lasting 15 minutes with shortness of breath and weakness. During the stay in the hospital for three days did not have any tachyarrhythmias. Noted to have PVC's off and on unifocal some in the form of bigeminy, asymptomatic. The patient's echo showed enlargement of the LV cavity to 5.9 from 5.6 with decrease in the ejection fraction and enlarged LA cavity. The patient was put on Hyzaar 50-12.5 half a tablet a day and Coreg dose was decreased. The patient's systolic blood pressure is close to 112 and she doesn't qualify for Entresto. She has no symptoms of CHF. The patient is going to be continued on Eliquis. She was strongly advised to followup with Dr. Blanca. The patient is advised to lose weight and join cardiac rehab. She will undergo Dobutamine stress echo sestamibi as an outpatient. CONDITION:Stable. TIME SPENT: More than 60 minutes. ADDENDUM TO HOLTER: The Holter report which was read before was my mistake the same Holter that was printed and done in April 2020. Holter done on 07/30/2020 showed basically rhythm sinus with rate of 50-100 per minute. Average was 62. The patient had PVC's which were 7% of the beats scanned and unifocal in the form ventricular bigeminy. No v-tach was noted. Few isolated PAC's were noted. No ST-T wave changes noted from the base line. Activity log was not maintained. MTDD
--- NOTE | 2020-08-06 09:19 | HOLTER ---
PATIENT INFORMATION AND COMMENTS Attending Physician: DR. TEZ FREEMAN Indications: HTN, CHEST PAIN __ Patient Medications: VENTOLIN HFA, HYDROCODONE, APIXABAN, ATORVASTATIN, CARVEDILOL, FLECAINIDE, LORAZEPAM, NITRO, TRIAMTERENE HCTZ __ Pre-procedure Summary: Protocol: Standard Heart Rate Started: 07/30/2020 1135 Minimum: 49 BPM Weight: 247 LBS Ended: 07/31/2020 1135 Maximum: 99 BPM Height: 68" Duration: 24 HOURS Average: 62 BPM _ INTERPRETATIONS/OBSERVATIONS: 1. BASIC RHYTHM: SINUS, RATE 50 BPM TO 100 BPM, AVERAGE 62 BPM 2. PVC'S--7% OF BEATS SCANNED/ UNIFOCAL, MOSTLY IN THE FORM OF BIGEMINY--NO VENTRICULAR TACHYCARDIA 3. FEW, ISOLATED PREMATURE ATRIAL CONTRACTIONS 4. NO ST-T WAVE CHANGES FROM BASELINE 5. ACTIVITY LOG NOT MAINTAINED MTDD
== END 2020-08-01 13:32 | disposition home or self-care (01) | DRG 310 ==
LOC: ED 10:19 → MEDSURG B 10:19 → OBSVTOIN 13:42 → MEDSURG B 15:05
PROVIDERS: ADMIT Internal Medicine; ATTEND Internal Medicine
DX: I48.0 Paroxysmal atrial fibrillation; Z79.899 Other long term (current) drug therapy; I49.3 Ventricular premature depolarization; R42 Dizziness and giddiness; R53.1 Weakness; Z51.81 Encounter for therapeutic drug level monitoring; R00.0 Tachycardia, unspecified; R07.9 Chest pain, unspecified; I10 Essential (primary) hypertension; R06.02 Shortness of breath; R00.2 Palpitations; Z79.01 Long term (current) use of anticoagulants; E66.9 Obesity, unspecified; I42.0 Dilated cardiomyopathy; E11.9 Type 2 diabetes mellitus without complications; J44.9 Chronic obstructive pulmonary disease, unspecified; I51.7 Cardiomegaly

== ENCOUNTER 2021-06-22 12:11 | Inpatient (IN) ==
[2021-06-22 12:38] LABS: BORDETELLA PARAPERTUSSIS (PCR) NOT DETECTED (NOT DETECT); BORDETELLA PERTUSSIS (PCR) NOT DETECTED (NOT DETECT); CHLAMYDIA PNEUMONIAE (PCR) NOT DETECTED (NOT DETECT); CORONAVIRUS 229E (PCR) NOT DETECTED (NOT DETECT); CORONAVIRUS HKU1 (PCR) NOT DETECTED (NOT DETECT); CORONAVIRUS NL63 (PCR) NOT DETECTED (NOT DETECT); CORONAVIRUS OC43 (PCR) NOT DETECTED (NOT DETECT); HUMAN METAPNEUMOVIRUS (PCR) NOT DETECTED (NOT DETECT); HUMAN RHINOVIRUS/ENTEROV (PCR) NOT DETECTED (NOT DETECT); INFLUENZA B (PCR) NOT DETECTED (NOT DETECT); MYCOPLASMA PNEUMONIAE (PCR) NOT DETECTED (NOT DETECT); PARAINFLUENZA VIRUS 1 (PCR) NOT DETECTED (NOT DETECT); PARAINFLUENZA VIRUS 2 (PCR) NOT DETECTED (NOT DETECT); PARAINFLUENZA VIRUS 3 (PCR) NOT DETECTED (NOT DETECT); PARAINFLUENZA VIRUS 4 (PCR) NOT DETECTED (NOT DETECT); RESPIRATORY SYNCYTIAL V (PCR) NOT DETECTED (NOT DETECT); SARS_COV_2 (PCR) NOT DETECTED (NOT DETECT)
[2021-06-22 13:16] LABS: ADENOVIRUS (PCR) NOT DETECTED (NOT DETECT)
[2021-06-22] MEDS ORDERED: TYLENOL PO PRN (14:15)
[2021-06-22] MEDS ORDERED: ATROPINE SULFATE PFS IVP PRN (14:15)
[2021-06-22] MEDS ORDERED: NITROSTAT SL PRN ×2 (14:15→14:32)
[2021-06-22] MEDS ORDERED: COLACE PO PRN (14:32)
[2021-06-22] MEDS ORDERED: ATIVAN PO PRN (14:32)
[2021-06-22 14:42] LABS: BASOPHILS % (AUTO) 0.3 % (0.0-3.0); EOSINOPHILS # (AUTO) 0.4 K/ul (0.0-0.7); EOSINOPHILS % (AUTO) 4.3 % (0.0-7.0); HEMATOCRIT 38.6 % (37.0-47.0); HEMOGLOBIN 12.2 g/dl (12.0-16.0); IMMATURE GRANULOCYTE % (AUTO) 0.4 % (0.0-5.0); LYMPHOCYTES # (AUTO) 1.9 K/uL (0.60-3.4); LYMPHOCYTES % (AUTO) 19.4 (10.0-50.0); MEAN CORPUSCULAR HEMOGLOBIN 28.5 pg (27.0-31.0); MEAN CORPUSCULAR HGB CONC 31.6 (31.8-35.4); MEAN CORPUSCULAR VOLUME 90.2 fl (81.0-99.0); MONOCYTES # (AUTO) 0.5 K/uL (0.4-2.0); MONOCYTES % (AUTO) 4.5 (0-10); NEUTROPHILS # (AUTO) 7.1 K/ul (2.0-6.9); NEUTROPHILS % (AUTO) 71.1 % (42.2-75.2); PLATELET COUNT 215 10^3/uL (140-440); RDW COEFFICIENT OF VARIATION 13.6 % (11.6-14.8); RED BLOOD COUNT 4.28 10^6/ul (4.20-5.40); WHITE BLOOD COUNT 9.95 K/ul (4.6-10.2)
[2021-06-22 14:55] VITALS: BMI 39.4
[2021-06-22 15:10] LABS: CREATINE KINASE 23.9 U/L (30-135)
[2021-06-22 15:26] LABS: TROPONIN I < 0.012 ng/ml (0.0000-0.120)
[2021-06-22] MEDS: SOLU-CORTEF 250 MG IVP SCH ×2 (15:34→20:48)
[2021-06-22] MEDS: ROCEPHIN 1 GM/50 ML D5W 1 GM/50 ML BAG IV SCH (15:34)
[2021-06-22 15:36] LABS: ALANINE AMINOTRANSFERASE 13.6 U/L (0-35); ALBUMIN 3.78 g/dL (3.5-5.0); ALKALINE PHOSPHATASE 134.9 U/L (53-141); ASPARTATE AMINO TRANSFERASE 18.6 U/L (14-36); BILIRUBIN,TOTAL 0.59 mg/dL (0.2-1.3); BLOOD UREA NITROGEN 10.4 mg/dL (7-17); CALCIUM 8.81 mg/dL (8.4-10.2); CARBON DIOXIDE 26.5 mmol/L (22-30.0); CHLORIDE 102.7 mmol/L (98-107); CREATININE 0.82 mg/dL (0.60-1.30); GLUCOSE 218.6 mg/dL (74-106); POTASSIUM 3.68 mmol/L (3.5-5.1); TOTAL PROTEIN 6.71 g/dL (6.3-8.2)
[2021-06-22] MEDS: TUSSIONEX PO SCH ×2 (15:50→20:24)
[2021-06-22 16:37] LABS: BILIRUBIN,URINE Negative (NEGATIVE); CLARITY,URINE Slightly (CLEAR); COLOR,URINE Yellow (YELLOW); GLUCOSE, URINE (UA) Negative (NEGATIVE); KETONES,URINE Negative (NEGATIVE); LEUKOCYTE ESTERASE ,URINE Negative (NEGATIVE); NITRITE,URINE Negative (NEGATIVE); PH,URINE 5.5 (5-9); PROTEIN,URINE Negative (NEGATIVE); URINE, BLOOD Trace-intact (NEGATIVE); UROBILINOGEN,URINE 0.2 (0.2)
[2021-06-22 16:45] LABS: AMORPHOUS SEDIMENT,UR 1+ (NOT PRESENT); BACTERIA,URINE TRACE (NOT PRESENT); URINE WBC, MICROSCOPIC 0-2 (0-2)
[2021-06-22 16:46] LABS: MUCUS,URINE TRACE (NOT PRESENT)
[2021-06-22] MEDS: COREG PO SCH (16:49)
--- NOTE | 2021-06-22 18:18 | CT ---
EXAM: CT of the chest with and without contrast History: Right-sided chest pain. Comparison: Chest CT 03/23/2021 Technique: Multiplanar CT images through the thorax were obtained with and without the administratio n of IV contrast. Findings: Heart size is borderline enlarged. No pericardial effusion. Great vessels are unremarkab le. No enlarged thoracic lymph nodes. Benign calcified granulomas are again seen within the thorax. No consolidation within the lungs. Mild emphysema. No pleural fluid and no pneumothorax. No susp icious lung masses or lung nodules. Within the visualized upper abdomen, status post cholecystectomy. No acute osseous abnormalities. Impression: 1. No acute intrathoracic process. 2. Mild emphysema. 3. Borderline cardiomegaly All CT scans are performed using dose optimization techniques as appropriate to the performed exam an d include at least one of the following: Automated exposure control, adjustment of the mA and/or kV according t o size, and the use of iterative reconstruction technique.
[2021-06-22] MEDS: NORCO 7.5-325 PO PRN (20:23)
[2021-06-22] MEDS: LIPITOR PO SCH (20:23)
[2021-06-22] MEDS: TAMBOCOR PO SCH (20:23)
[2021-06-22] MEDS: ELIQUIS PO SCH (20:24)
[2021-06-22 22:17] LABS: CREATINE KINASE 26.3 U/L (30-135)
[2021-06-22] MEDS: ALBUTEROL 0.042% NEB NEB SCH (22:20)
[2021-06-22 22:30] LABS: TROPONIN I < 0.012 ng/ml (0.0000-0.120)
[2021-06-23] MEDS: ALBUTEROL 0.042% NEB NEB SCH ×3 (04:50→21:30)
[2021-06-23 04:57] LABS: BASOPHILS % (AUTO) 0.2 % (0.0-3.0); EOSINOPHILS % (AUTO) 0.1 % (0.0-7.0); HEMATOCRIT 37.1 % (37.0-47.0); HEMOGLOBIN 11.7 g/dl (12.0-16.0); IMMATURE GRANULOCYTE % (AUTO) 0.4 % (0.0-5.0); LYMPHOCYTES # (AUTO) 1.1 K/uL (0.60-3.4); LYMPHOCYTES % (AUTO) 9.8 (10.0-50.0); MEAN CORPUSCULAR HEMOGLOBIN 28.5 pg (27.0-31.0); MEAN CORPUSCULAR HGB CONC 31.5 (31.8-35.4); MEAN CORPUSCULAR VOLUME 90.3 fl (81.0-99.0); MONOCYTES # (AUTO) 0.4 K/uL (0.4-2.0); MONOCYTES % (AUTO) 3.3 (0-10); NEUTROPHILS # (AUTO) 9.2 K/ul (2.0-6.9); NEUTROPHILS % (AUTO) 86.2 % (42.2-75.2); PLATELET COUNT 200 10^3/uL (140-440); RDW COEFFICIENT OF VARIATION 13.3 % (11.6-14.8); RED BLOOD COUNT 4.11 10^6/ul (4.20-5.40); WHITE BLOOD COUNT 10.71 K/ul (4.6-10.2)
[2021-06-23 05:08] LABS: ALANINE AMINOTRANSFERASE 11.8 U/L (0-35); ALBUMIN 3.48 g/dL (3.5-5.0); ALKALINE PHOSPHATASE 130.7 U/L (53-141); ASPARTATE AMINO TRANSFERASE 16.8 U/L (14-36); BILIRUBIN,TOTAL 0.32 mg/dL (0.2-1.3); BLOOD UREA NITROGEN 9.5 mg/dL (7-17); CALCIUM 8.67 mg/dL (8.4-10.2); CREATININE 0.64 mg/dL (0.60-1.30); GLUCOSE 162.7 mg/dL (74-106); POTASSIUM 4.23 mmol/L (3.5-5.1); SODIUM 138.3 mmol/L (134.5-145); TOTAL PROTEIN 6.4 g/dL (6.3-8.2)
[2021-06-23] MEDS: SOLU-CORTEF 250 MG IVP SCH ×3 (05:36→20:32)
--- NOTE | 2021-06-23 08:57 | PCM.PROG ---
Attending Provider: ATTENDING PROVIDER: Dr. TEZ FREEMAN This patient is seen with Melissa Ann, Nurse Practitioner. DATE OF SERVICE: 06/23/21 SUBJECTIVE: This 70 year old /WHITE F was hospitalized 06/22/21. Resting comfortably. The patient is still with right pleuritic pain, has slightly impro lionel. CT scan showed no acute process. Pain with coughing and deep breathing. REVIEW OF SYSTEMS: CONSTITUTIONAL: No night sweats. No fatigue, malaise, lethargy. No fever or c hills. HEENT: Eyes: No visual changes. No eye pain. No eye discharge. ENT: No runny nose. No epistaxis. No sinus pain. No odynophagia. No congestion. RESPIRATORY: Cough. No hemoptysis. No shortness of breath. CARDIOVASCULAR: Right chest wall pain. No angina symptoms. No CHF symptoms. No palpitations. No orthopnea.. GASTROINTESTINAL: No abdominal pain. No nausea or vomiting. No diarrhea or constipation. No hematemesis. No hematochezia. GENITOURINARY: No urgency. No frequency. No dysuria. No hematuria. No obstructive symptoms. No discharge. No pain. No significant abnormal bleeding. MUSCULOSKELETAL: Pain with cough and deep breathing. No musculoskeletal pain; no joint swelling. NEUROLOGICAL: Awake, alert, oriented to time, place and person. No headache. No neck pain. No syncope. No seizures. No dizziness. PSYCHIATRIC: Not anxious. No depression. No suicidal thoughts. No homicidal thoughts. SKIN: No rash. No lesions. No wounds. ENDOCRINE: No unexplained weight loss. No weight gain. HEMATOLOGIC/LYMPHATIC: No anemia. No purpura. No petechiae. No prolonged or excessive bleeding. No palpable lymph nodes. PHYSICAL EXAMINATION: GENERAL: The patient is awake, alert and oriented, lying/sitting in bed in no distress. VITAL SIGNS: Temperature 96.8 F, Pulse 67, Respiratory Rate 16, BP 139/66, Pulse Ox 98% HEENT: Head normocephalic, atraumatic. Eyes: Extraocular muscles are intact. Pupils are equal, round and reactive to light and accommodation. Ears: No lesions. Nose appeared normal. Throat: No exudate or erythema. NECK: Supple. No JVD, no carotid bruit. No lymphadenopathy or thyromegaly. LUNGS: Diminished breath sounds. Clear to auscultation. Percussion note normal. Chest symmetrical. HEART: S1, S2, no S3. No murmurs. No cyanosis or clubbing. No ascites. Pulses: Dorsalis pedis and posterior tibial pulses +1 to +2 both sides. ABDOMEN: Soft. Non-tender. Bowel sounds active. No CVA tenderness. No mass felt. EXTREMITIES: No edema. Full range of motion of all extremities, equal. NEUROLOGIC: No focal deficit. Cranial nerves II through XII are grossly intact. No headache. No double vision. SKIN: Not dry. Intact. Turgor-normal. LYMPHATIC: No palpable lymph nodes/no lymphedema. MUSCULOSKELETAL: Normal joints with no swelling. Muscle tone is normal. LAB REVIEW: 06/23/21 04:34 06/23/21 04:34 06/23/21 04:34: Sodium 138.3, Potassium 4.23, Chloride 104.0, Carbon Dioxide 29.0, Anion Gap 9.53, BUN 9.5, Creatinine 0.64, Estimated GFR (MDRD) 91.00, BUN/Creatinine Ratio 14.84, Glucose 162.7 H D, Calcium 8.67, Total Bilirubin 0.32, AST 16.8, ALT 11.8, Alkaline Phosphatase 130.7, Total Protein 6.40, Albumin 3.48 L, Globulin 2.92, Albumin/Globulin Ratio 1.19 06/23/21 04:34: WBC 10.71 H, RBC 4.11 L, Hgb 11.7 L, Hct 37.1, MCV 90.3, MCH 28.5, MCHC 31.5 L, RDW Coeff of Vel 13.3, Plt Count 200, Immature Gran % (Auto) 0.4, Neut % (Auto) 86.2 H, Lymph % (Auto) 9.8 L, [place] % (Auto) 3.3, Eos % (Auto) 0.1, Baso % (Auto) 0.2, Neut # (Auto) 9.2 H, Lymph # (Auto) 1.1, [place] # (Auto) 0.4, Eos # (Auto) 0.0, Baso # (Auto) 0.0, Immature Gran # (Auto) 0.0 06/22/21 22:05: Total Creatine Kinase 26.3 L, Troponin I < 0.012 06/22/21 16:29: Urine Color Yellow, Urine Clarity Slightly, Urine pH 5.5, Ur Specific [place] >=1.030, Urine Protein Negative, Urine Glucose (UA) Negative, Urine Ketones Negative, Urine Blood Trace-intact H, Urine Nitrite Negative, Urine Bilirubin Negative, Urine Urobilinogen 0.2, Ur Leukocyte Esterase Negative, Urine Microscopic RBC 2-5, Urine Microscopic WBC 0-2, Ur Squamous Epith Cells 5-10, Amorphous Sediment 1+, Urine Bacteria Trace, Urine Mucus Trace 06/22/21 14:28: Sodium 137.0, Potassium 3.68, Chloride 102.7, Carbon Dioxide 26.5, Anion Gap 11.48, BUN 10.4, Creatinine 0.82, Estimated GFR (MDRD) 69.00, BUN/Creatinine Ratio 12.68, Glucose 218.6 H, Calcium 8.81, Total Bilirubin 0.59, AST 18.6, ALT 13.6, Alkaline Phosphatase 134.9, Total Protein 6.71, Albumin 3.78, Globulin 2.93, Albumin/Globulin Ratio 1.29 06/22/21 14:28: WBC 9.95, RBC 4.28, Hgb 12.2, Hct 38.6, MCV 90.2, MCH 28.5, MCHC 31.6 L, RDW Coeff of Vel 13.6, Plt Count 215, Immature Gran % (Auto) 0.4, Neut % (Auto) 71.1, Lymph % (Auto) 19.4, [place] % (Auto) 4.5, Eos % (Auto) 4.3, Baso % (Auto) 0.3, Neut # (Auto) 7.1 H, Lymph # (Auto) 1.9, [place] # (Auto) 0.5, Eos # (Auto) 0.4, Baso # (Auto) 0.0, Immature Gran # (Auto) 0.0 06/22/21 14:28: Total Creatine Kinase 23.9 L, Troponin I < 0.012 06/22/21 12:30: Adenovirus (PCR) Not detected, B. pertussis DNA (PCR) Not detected, B.parapertussis DNA PCR Not detected, C. pneumoniae DNA (PCR) Not detected, Coronavirus OC43 (PCR) Not detected, Coronavirus HKU1 (PCR) Not detected, Coronavirus 229E (PCR) Not detected, Coronavirus NL63 (PCR) Not detected, Human Metapneumovir PCR Not detected, Influenza Type A (PCR) Not detected, Influenza B (RT-PCR) Not detected, M. pneumoniae (PCR) Not detected, Parainfluenza 1 (PCR) Not detected, Parainfluenza 2 (PCR) Not detected, Parainfluenza 3 (PCR) Not detected, Parainfluenza 4 (PCR) Not detected, RSV (PCR) Not detected, Entero/Rhino (PCR) Not detected, SARS-CoV-2 (PCR) Not detected ASSESSMENT: Please see below. 1. Right chest wall pain/pleurisy 2. Acute COPD exacerbation 3. Atrial fibrillation 4. Diabetes mellitus type 2 PLAN: 1. Continue IV steroids 2. Sliding scale Plan and coordination of the patient's care discussed in the presence of Metal Mine Inspector and nurse. CONDITION: Stable SCRIBED BY: ANEL CASTANEDA Wire Coating Operator Metal scribed while in presence of service performed by Dr. Freeman/Melissa Ann APRN on 06/23/21 (0800)
[2021-06-23] MEDS: ROCEPHIN 1 GM/50 ML D5W 1 GM/50 ML BAG IV SCH (09:33)
[2021-06-23] MEDS: TUSSIONEX PO SCH ×2 (09:37→20:33)
[2021-06-23] MEDS: COREG PO SCH ×2 (09:42→16:46)
[2021-06-23] MEDS: TAMBOCOR PO SCH ×2 (09:43→20:32)
[2021-06-23] MEDS: HYDROCHLOROTHIAZIDE PO SCH (09:43)
[2021-06-23] MEDS: COZAAR PO SCH (09:43)
[2021-06-23] MEDS: ELIQUIS PO SCH ×2 (09:44→20:33)
[2021-06-23] MEDS: HUMULIN R SUBCUT PRN ×2 (09:59→12:07)
--- NOTE | 2021-06-23 13:29 | HP ---
DATE OF SERVICE: 06/22/21 HISTORY OF PRESENT ILLNESS: 70-year-old female with complaint of pain with coughing on right chest/back with more shortness of breath. She has been on Keflex and Prednisone. PAST MEDICAL HISTORY: Right pleurisy Acute pneumonitis Atrial fibrillation with ablation, PAST SURGICAL HISTORY: Gallbladder Heart ablation [facility] REVIEW OF SYSTEMS: CONSTITUTIONAL: Fatigue. No night sweats. No malaise, lethargy. No fever or chills. HEENT: Eyes: No visual changes. No eye pain. No eye discharge. ENT: Sinus drainage. No epistaxis. No sinus pain. No sore throat. No odynophagia. No ear pain. No congestion. RESPIRATORY: Cough. No hemoptysis. CARDIOVASCULAR: Shortness of breath. No angina symptoms. No CHF symptoms. Atypical chest pain for CAD - right chest pain. No palpitations. No PND. No orthopnea. GASTROINTESTINAL: No abdominal pain. No nausea or vomiting. No diarrhea or constipation. No hematemesis. No hematochezia. GENITOURINARY: No urgency. No frequency. No dysuria. No hematuria. No obstructive symptoms. No discharge. No pain. No significant abnormal bleeding. MUSCULOSKELETAL: No musculoskeletal pain. No joint swelling. No arthritis. NEUROLOGICAL: No headache. No neck pain. No syncope. No seizures. No dizziness. PSYCHIATRIC: Not anxious. No depression. No suicidal thoughts. No homicidal thoughts. SKIN: No rash. No lesions. No wounds. ENDOCRINE: No unexplained weight loss. No weight gain. HEMATOLOGIC/LYMPHATIC: No anemia. No purpura. No petechiae. No prolonged or excessive bleeding. No palpable lymph nodes. PERSONAL/FAMILY/SOCIAL HISTORY: . Two children - boys age 37, 52. Retired. No drug use. Nonsmoker. No alcohol use. Father with CAD. Mother with hypertension, diabetes mellitus and coronary artery disease. Brother(s)- 1- 1990 CA, 2- alive COPD. MEDICATIONS: Coreg 12.5 mg 1/2 b.i.d. Tizanidine 4 mg p.r.n. Metformin 500 mg one daily Meclizine 25 mg t.i.d. p.r.n. Hydrocodone 7.5/325 b.i.d. Ultram 50 mg one b.i.d. Nitroglycerin p.r.n. Atorvastatin 40 mg one daily Eliquis 5 mg one b.i.d. Lorazepam 0.5 mg one b.i.d. p.r.n Albuterol neb treatment t.i.d. Dyazide 4 times a week Losartan 25 mg one daily HCTZ 12.5 1/2 tab daily Docusate 100 mg b.i.d. Flecainide 100 mg b.i.d. ALLERGIES: MORPHINE, Z-PACK MENSTRUAL HISTORY: [id number] PHYSICAL EXAMINATION: GENERAL: The patient is oriented times three. Pallor positive. VITAL SIGNS: Pulse 63, BP 120/80, temperature 97.5, 02 sat 96%, HEENT: Head normocephalic, atraumatic. Eyes: Extraocular muscles are intact. Pupils are equal, round and reactive to light and accommodation. Ears: No lesions. Nose appeared normal. Throat: No exudate or erythema. NECK: Supple. No JVD, no carotid bruit. No lymphadenopathy or thyromegaly. LUNGS: Decreased breath sounds, left greater than right. Clear to auscultation. Percussion note normal. Chest symmetrical. HEART: S1, S2, no S3. No murmur. No cyanosis or clubbing. No ascites. Pulses: Dorsalis pedis and posterior tibial pulses +1 to +2 bilaterally. ABDOMEN: Soft. Nontender. Bowel sounds active. No CVA tenderness. No mass felt. EXTREMITIES: No edema. Full range of motion of all extremities, equal. RECTAL: Colonoscopy 07/30 Dr. Maciel, EGD 08/02 [place]. Pelvic: Hysterectomy. Mammogram 05/03 [facility] NEUROLOGIC: No focal deficit. Cranial nerves II through XII are grossly intact. No headache, no double vision or headache. SKIN: Not dry. Intact. Turgor - normal. LYMPHATIC: No palpable lymph nodes/no lymphedema. MUSCULOSKELETAL: Normal joints with no swelling. Muscle tone is normal. ASSESSMENT: 1. Right pleurisy 2. Acute pneumonitis 3. Atrial fibrillation with ablation, Dr. Blanca 4. Repeat [place]-09/02 @ [facility]-negative 5. +Sestamibi 09/02 [facility] 6. Covid 11/[address] Thomas 08/04 8. Palpitations ecjp 02- EF 45% 9. Lumbar radiculopathy 10. Diabetes mellitus type 2, A1C 03/04 6.2 11. Right pulmonary nodule 12/04 12. Right cervical lymphadenopathy 13. Status post catheter 2011 14. Bilateral sciatica 15. Obesity 16. Hypertension 17. B12 18. Anemia 19. CHF 20. Dyslipidemia 21. Osteoarthritis knee PLAN: 1. Routine telemetry orders 2. CBC, CMP now and daily 3. Continue home medications 4. Solu-Cortef 125 mg IV q.8h 5. Rocephin 1 gm IV daily 6. 02 @ 1-2L AR 7. Tussionex one teaspoon p.o. b.i.d. 8. Regular diet 9. CT chest with and without contrast today. TIME SPENT: More than 70 minutes. JAQUELINED
--- NOTE | 2021-06-23 14:28 | PN ---
DATE OF SERVICE: 06/22/21 SUBJECTIVE: The patient was seen and examined in the office prior to hospitalization. The patient has been hospitalized previously with lung problems. Same thing has happened now with right-sided pleurisy with acute pneumonitis and bronchitis. The patient is extremely fatigue and tired. The patient is going to need steroids, nebs and antibiotics. Overall cardiovascular status is stable with no evidence of CHF. History/Physical and plan was carried out with nurse practitioner. TIME SPENT: More than 30 minutes. Plan and coordination of the patient's care discussed in the presence of nurse. JONATHAN
[2021-06-23] MEDS: NORCO 7.5-325 PO PRN (16:51)
[2021-06-23] MEDS: LIPITOR PO SCH (20:32)
[2021-06-24] MEDS: NORCO 7.5-325 PO PRN ×2 (00:48→14:13)
[2021-06-24] MEDS: ALBUTEROL 0.042% NEB NEB SCH ×3 (04:50→21:55)
[2021-06-24 04:53] LABS: BASOPHILS % (AUTO) 0.1 % (0.0-3.0); HEMATOCRIT 38.2 % (37.0-47.0); HEMOGLOBIN 11.9 g/dl (12.0-16.0); IMMATURE GRANULOCYTE # (AUTO) 0.1 (0.0-1.0); IMMATURE GRANULOCYTE % (AUTO) 0.7 % (0.0-5.0); LYMPHOCYTES # (AUTO) 1.6 K/uL (0.60-3.4); LYMPHOCYTES % (AUTO) 11.3 (10.0-50.0); MEAN CORPUSCULAR HEMOGLOBIN 28.4 pg (27.0-31.0); MEAN CORPUSCULAR HGB CONC 31.2 (31.8-35.4); MEAN CORPUSCULAR VOLUME 91.2 fl (81.0-99.0); MONOCYTES # (AUTO) 0.6 K/uL (0.4-2.0); MONOCYTES % (AUTO) 4.4 (0-10); NEUTROPHILS # (AUTO) 11.6 K/ul (2.0-6.9); NEUTROPHILS % (AUTO) 83.5 % (42.2-75.2); PLATELET COUNT 215 10^3/uL (140-440); RDW COEFFICIENT OF VARIATION 13.4 % (11.6-14.8); RED BLOOD COUNT 4.19 10^6/ul (4.20-5.40); WHITE BLOOD COUNT 13.85 K/ul (4.6-10.2)
[2021-06-24 05:07] LABS: ALANINE AMINOTRANSFERASE 12.3 U/L (0-35); ALBUMIN 3.44 g/dL (3.5-5.0); ALKALINE PHOSPHATASE 140.8 U/L (53-141); ASPARTATE AMINO TRANSFERASE 17.6 U/L (14-36); BILIRUBIN,TOTAL 0.24 mg/dL (0.2-1.3); BLOOD UREA NITROGEN 12.9 mg/dL (7-17); CALCIUM 8.71 mg/dL (8.4-10.2); CARBON DIOXIDE 30.3 mmol/L (22-30.0); CHLORIDE 103.3 mmol/L (98-107); CREATININE 0.68 mg/dL (0.60-1.30); POTASSIUM 4.03 mmol/L (3.5-5.1); TOTAL PROTEIN 6.26 g/dL (6.3-8.2)
[2021-06-24] MEDS: SOLU-CORTEF 250 MG IVP SCH ×3 (05:45→20:20)
[2021-06-24] MEDS: HUMULIN R SUBCUT PRN ×2 (06:54→10:50)
[2021-06-24] MEDS ORDERED: ATIVAN PO PRN (07:01)
--- NOTE | 2021-06-24 08:25 | PN ---
DATE OF SERVICE: 06/23/21 SUBJECTIVE: The patient was seen and examined with the nurse practitioner. The patient's condition has improved. Right-sided pleuritic pain has subsided. She is breathing a lot better. Will continue steroids, nebs and antibiotics. The patient is Covid negative. TIME SPENT: More than 30 minutes. Plan and coordination of the patient's care discussed in the presence of nurse. JONATHAN
[2021-06-24] MEDS: ROCEPHIN 1 GM/50 ML D5W 1 GM/50 ML BAG IV SCH (09:00)
[2021-06-24] MEDS: COREG PO SCH ×2 (09:00→16:37)
[2021-06-24] MEDS: HYDROCHLOROTHIAZIDE PO SCH (09:00)
[2021-06-24] MEDS: TUSSIONEX PO SCH ×2 (09:01→20:20)
[2021-06-24] MEDS: TAMBOCOR PO SCH ×2 (09:01→20:21)
[2021-06-24] MEDS: GLUCOPHAGE PO SCH ×2 (09:01→16:37)
[2021-06-24] MEDS: COZAAR PO SCH (09:01)
[2021-06-24] MEDS: ELIQUIS PO SCH ×2 (09:02→20:21)
[2021-06-24] MEDS: LIPITOR PO SCH (20:21)
[2021-06-25] MEDS: NORCO 7.5-325 PO PRN (02:29)
[2021-06-25] MEDS: ALBUTEROL 0.042% NEB NEB SCH (05:00)
[2021-06-25 05:06] LABS: BASOPHILS % (AUTO) 0.2 % (0.0-3.0); EOSINOPHILS % (AUTO) 0.1 % (0.0-7.0); IMMATURE GRANULOCYTE # (AUTO) 0.1 (0.0-1.0); IMMATURE GRANULOCYTE % (AUTO) 0.9 % (0.0-5.0); LYMPHOCYTES # (AUTO) 1.8 K/uL (0.60-3.4); LYMPHOCYTES % (AUTO) 14.6 (10.0-50.0); MEAN CORPUSCULAR HEMOGLOBIN 28.6 pg (27.0-31.0); MEAN CORPUSCULAR HGB CONC 31.4 (31.8-35.4); MEAN CORPUSCULAR VOLUME 90.9 fl (81.0-99.0); MONOCYTES # (AUTO) 0.6 K/uL (0.4-2.0); MONOCYTES % (AUTO) 4.5 (0-10); NEUTROPHILS # (AUTO) 9.8 K/ul (2.0-6.9); NEUTROPHILS % (AUTO) 79.7 % (42.2-75.2); PLATELET COUNT 201 10^3/uL (140-440); RDW COEFFICIENT OF VARIATION 13.6 % (11.6-14.8); RED BLOOD COUNT 3.85 10^6/ul (4.20-5.40); WHITE BLOOD COUNT 12.31 K/ul (4.6-10.2)
[2021-06-25 05:21] LABS: ALANINE AMINOTRANSFERASE 11.4 U/L (0-35); ALBUMIN 3.16 g/dL (3.5-5.0); ALKALINE PHOSPHATASE 117.3 U/L (53-141); ASPARTATE AMINO TRANSFERASE 14.9 U/L (14-36); BILIRUBIN,TOTAL 0.22 mg/dL (0.2-1.3); BLOOD UREA NITROGEN 17.2 mg/dL (7-17); CALCIUM 8.22 mg/dL (8.4-10.2); CHLORIDE 102.9 mmol/L (98-107); CREATININE 0.68 mg/dL (0.60-1.30); GLUCOSE 189.1 mg/dL (74-106); POTASSIUM 3.43 mmol/L (3.5-5.1); SODIUM 137.8 mmol/L (134.5-145); TOTAL PROTEIN 5.74 g/dL (6.3-8.2)
[2021-06-25] MEDS: SOLU-CORTEF 250 MG IVP SCH (05:32)
[2021-06-25] MEDS: HUMULIN R SUBCUT PRN (06:36)
[2021-06-25] MEDS ORDERED: K-DUR PO ONE (08:24)
--- NOTE | 2021-06-25 09:05 | PCM.PROG ---
Attending Provider: ATTENDING PROVIDER: Dr. TEZ FREEMAN This patient is seen with Melissa Ann, Nurse Practitioner. DATE OF SERVICE: 06/25/21 SUBJECTIVE: This 70 year old /WHITE F was hospitalized 06/22/21. The patient is resting comfortably. Pleuritic pain has resolved. The patient feels chronic back pain likely due to hospital bed. Cough improved. REVIEW OF SYSTEMS: CONSTITUTIONAL: No night sweats. No fatigue, malaise, lethargy. No fever or chills. HEENT: Eyes: No visual changes. No eye pain. No eye discharge. ENT: No runny nose. No epistaxis. No sinus pain. No odynophagia. No congestion. RESPIRATORY: Cough. No hemoptysis. No shortness of breath. CARDIOVASCULAR: No angina symptoms. No CHF symptoms. No atypical chest pain for CAD. No palpitations. No orthopnea.. GASTROINTESTINAL: No abdominal pain. No nausea or vomiting. No diarrhea or constipation. No hematemesis. No hematochezia. GENITOURINARY: No urgency. No frequency. No dysuria. No hematuria. No obstructive symptoms. No discharge. No pain. No significant abnormal bleeding. MUSCULOSKELETAL: Back pain. NEUROLOGICAL: Awake, alert, oriented to time, place and person. No headache. No neck pain. No syncope. No seizures. No dizziness. PSYCHIATRIC: Not anxious. No depression. No suicidal thoughts. No homicidal thoughts. SKIN: No rash. No lesions. No wounds. ENDOCRINE: No unexplained weight loss. No weight gain. HEMATOLOGIC/LYMPHATIC: No anemia. No purpura. No petechiae. No prolonged or ex cessive bleeding. No palpable lymph nodes. PHYSICAL EXAMINATION: GENERAL: The patient is awake, alert and oriented, lying/sitting in bed in no distress. VITAL SIGNS: Temperature 97.6 F, Pulse 70, Respiratory Rate 18, BP 133/71, Pulse Ox 95% HEENT: Head normocephalic, atraumatic. Eyes: Extraocular muscles are intact. Pupils are equal, round and reactive to light and accommodation. Ears: No lesions. Nose appeared normal. Throat: No exudate or erythema. NECK: Supple. No JVD, no carotid bruit. No lymphadenopathy or thyromegaly. LUNGS: Diminished breath sounds. Clear to auscultation. Percussion note normal. Chest symmetrical. HEART: S1, S2, no S3. No murmurs. No cyanosis or clubbing. No ascites. Pulses: Dorsalis pedis and posterior tibial pulses +1 to +2 both sides. ABDOMEN: Soft. Non-tender. Bowel sounds active. No CVA tenderness. No mass felt. EXTREMITIES: No edema. Full range of motion of all extremities, equal. NEUROLOGIC: No focal deficit. Cranial nerves II through XII are grossly intact. No headache. No double vision. SKIN: Not dry. Intact. Turgor-normal. LYMPHATIC: No palpable lymph nodes/no lymphedema. MUSCULOSKELETAL: Normal joints with no swelling. Muscle tone is normal. LAB REVIEW: 06/25/21 04:47 06/25/21 04:47 06/25/21 04:47: Sodium 137.8, Potassium 3.43 L, Chloride 102.9, Carbon Dioxide 29.0, Anion Gap 9.33, BUN 17.2 H, Creatinine 0.68, Estimated GFR (MDRD) 85.00, BUN/Creatinine Ratio 25.29, Glucose 189.1 H, Calcium 8.22 L, Total Bilirubin 0.22, AST 14.9, ALT 11.4, Alkaline Phosphatase 117.3, Total Protein 5.74 L, Albumin 3.16 L, Globulin 2.58, Albumin/Globulin Ratio 1.22 06/25/21 04:47: WBC 12.31 H, RBC 3.85 L, Hgb 11.0 L, Hct 35.0 L, MCV 90.9, MCH 28.6, MCHC 31.4 L, RDW Coeff of Vel 13.6, Plt Count 201, Immature Gran % (Auto) 0.9, Neut % (Auto) 79.7 H, Lymph % (Auto) 14.6, [place] % (Auto) 4.5, Eos % (Auto) 0.1, Baso % (Auto) 0.2, Neut # (Auto) 9.8 H, Lymph # (Auto) 1.8, [place] # (Auto) 0.6, Eos # (Auto) 0.0, Baso # (Auto) 0.0, Immature Gran # (Auto) 0.1 ASSESSMENT: Please see below. 1. Right pleurisy. 2. Acute pneumonitis. 3. Chronic back pain. 4. Atrial fibrillation. PLAN: 1. Discharge home today. 2. Potassium 40 mEq this morning before discharge. 3. Prednisone 20 mg b.i.d. times 5 days. 4. Phenergan with Codeine one teaspoon q.6hr p.r.n. 4 ozs. 5. Omnicef 300 mg one p.o. b.i.d. for 7 days. 6. Albuterol 0.83 neb 7. Will see the patient in the office next week. Plan and coordination of the patient's care discussed in the presence of House Decorator and nurse. CONDITION: Stable SCRIBED BY: ANEL CASTANEDA Protection Analyst scribed while in presence of service performed by Dr. Freeman/Melissa Ann APRN on 06/25/21 (811)
[2021-06-25] MEDS: COZAAR PO SCH (09:06)
[2021-06-25] MEDS: HYDROCHLOROTHIAZIDE PO SCH (09:06)
[2021-06-25] MEDS: TAMBOCOR PO SCH (09:06)
[2021-06-25] MEDS: COREG PO SCH (09:06)
[2021-06-25] MEDS: GLUCOPHAGE PO SCH (09:06)
[2021-06-25] MEDS: ROCEPHIN 1 GM/50 ML D5W 1 GM/50 ML BAG IV SCH (09:07)
[2021-06-25] MEDS: TUSSIONEX PO SCH (09:07)
[2021-06-25] MEDS: ELIQUIS PO SCH (09:07)
[2021-06-25 10:39] VITALS: BP 145/80; TEMP 96.7
--- NOTE | 2021-06-25 10:59 | CM.DICTOOL ---
ADMISSION: 06/22/21 13:54 DISCHARGE: JUNE 25, 2021 DATE OF SERVICE: 06/25/21 FINAL DIAGNOSIS RIGHT CHEST WALL PAIN/PLEURISY ACUTE PNEUMONITIS ACUTE COPD EXACERBATION HX: ATRIAL FIBRILLATION WITH ABLATION (DR. ARITA) ON ELIQUIS HYPERTENSION CHF DYSLIPIDEMIA COPD, SEES DR. WYATT (08/04) PALPITATIONS DIABETES MELLITUS, TYPE 2 (A1C 6.2 03/04) PULMONARY NODULE, RIGHT LUNG (12/04) CERVICAL LYMPHADENOPATHY, RIGHT POSITIVE SESTAMIBI, 09/02 ([place]) BRAY[place] SCAN REPEAT AT [facility] WAS NEGATIVE (09/02) COVID 10/2021 ANEMIA B12 DEFICIENCY OSTEOARTHRITIS KNEE OBESITY BILATERAL SCIATICA LUMBAR RADICULOPATHY CHRONIC BACK PAIN HEART CATH, 2011 ABLATION, DR. ARITA (2014) CHOLECYSTECTOMY ANJEL ECHOCARDIOGRAM (07/30/20) LVH WITH ENLARGED LEFT ATRIAL CAVITY, 5.7 CM LVEF 45% CODE STATUS: DO NOT INTUBATE, CPR ONLY LAST VITALS Temp Pulse Resp BP Pulse Ox 97.6 F 70 18 133/71 95 06/25/21 05:45 06/25/21 05:45 06/25/21 05:45 06/25/21 05:45 06/25/21 05:45 TAKE THESE MEDICATIONS AT HOME Hydrocodone Bitart/Acetaminophen (Hydrocodone Bit/Acetaminophen 7.5/325 Mg Tablet) 1 tab PO BID PRN PRN Reason: Severe Pain Last Admin: 06/25/21 02:29 Dose: 1 tab Apixaban (Apixaban 5 Mg Tab) 5 mg PO BID [facility] Last Admin: 06/25/21 09:07 Dose: 5 mg Atorvastatin Calcium (Atorvastatin Calcium 20 Mg Tablet) 40 mg PO BEDTIME CINTHIA Last Admin: 06/24/21 20:21 Dose: 40 mg Carvedilol (Carvedilol 6.25 Mg Tablet) 6.25 mg PO BIDWM [facility] Last Admin: 06/25/21 09:06 Dose: 6.25 mg Docusate Sodium (Docusate Sodium 100 Mg Capsule) 100 mg PO BID PRN PRN Reason: Constipation Last Admin: 06/24/21 09:07 Dose: 100 mg Flecainide Acetate (Flecainide Acetate 100 Mg Tablet) 100 mg PO BID [facility] Last Admin: 06/25/21 09:06 Dose: 100 mg Hydrochlorothiazide (Hydrochlorothiazide 25 Mg Tablet) 6.25 mg PO DAILY [facility] Last Admin: 06/25/21 09:06 Dose: 6.25 mg Lorazepam (Lorazepam 1 Mg Tablet) 1 mg PO BID PRN PRN Reason: Anxiety Losartan Potassium (Losartan Potassium 25 Mg Tablet) 25 mg PO DAILY [facility] Last Admin: 06/25/21 09:06 Dose: 25 mg Metformin HCl (Metformin Hcl 500 Mg Tablet) 500 mg PO BIDWM [facility] Last Admin: 06/25/21 09:06 Dose: 500 mg Nitroglycerin (Nitroglycerin 0.4 Mg Tab.Subl) 0.4 mg SL Q5MIN X 3 DOSES PRN PRN Reason: Angina ALBUTEROL 0.083%/ 2.5 MG 3-4 X DAILY PER NEBULIZER PREDNISONE 20 MG PO BID X 5 DAYS ( START 06/26/2021) OMNICEF 300 MG PO BID X 7 DAYS ( START 06/26/2021) PHENERGAN/CODIENE SYRUP 1 TSP PO Q 6 HOURS PRN FOR COUGH ALBUTEROL MDI 2 PUFFS TID PRN ALLERGIES morphine Adverse Reaction (Unknown, Verified 06/16/21 08:09) unknown DISCONTINUED MEDICATIONS NONE NEW PRESCRIPTIONS: 1). ALBUTEROL 0.083% 3-4 X DAILY NEBULIZER 2). PREDNISONE 20 MG PO BID X 5 DAYS ( START 06/26/2021) # 10, NO REFILLS 3). OMNICEF 300 MG PO BID X 7 DAYS ( START 06/26/2021) # 14, NO REFILLS 4). PHENERGAN/CODIENE SYRUP 1 TSP PO Q 6 HOURS PRN FOR COUGH, # 4 OZ, NO REFILLS SMOKING: N/A DISEASE SPECIFIC EDUCATION: PNEUMONITIS COPD NEW MEDICATIONS NEBULIZER BLEEDING PRECAUTIONS COVID PRECAUTIONS LAB REVIEW: 06/25/21 04:47 06/25/21 04:47 06/25/21 04:47: Sodium 137.8, Potassium 3.43 L, Chloride 102.9, Carbon Dioxide 29.0, Anion Gap 9.33, BUN 17.2 H, Creatinine 0.68, Estimated GFR (MDRD) 85.00, BUN/Creatinine Ratio 25.29, Glucose 189.1 H, Calcium 8.22 L, Total Bilirubin 0.22, AST 14.9, ALT 11.4, Alkaline Phosphatase 117.3, Total Protein 5.74 L, Albumin 3.16 L, Globulin 2.58, Albumin/Globulin Ratio 1.22 06/25/21 04:47: WBC 12.31 H, RBC 3.85 L, Hgb 11.0 L, Hct 35.0 L, MCV 90.9, MCH 28.6, MCHC 31.4 L, RDW Coeff of Vel 13.6, Plt Count 201, Immature Gran % (Auto) 0.9, Neut % (Auto) 79.7 H, Lymph % (Auto) 14.6, [place] % (Auto) 4.5, Eos % (Auto) 0.1, Baso % (Auto) 0.2, Neut # (Auto) 9.8 H, Lymph # (Auto) 1.8, [place] # (Auto) 0.6, Eos # (Auto) 0.0, Baso # (Auto) 0.0, Immature Gran # (Auto) 0.1 PLAN: DISCHARGE: HOME TODAY 06/25/2021 INDEPENDENTLY AND LIVES ALONE ACTIVITY: UP TOLERATED WITH FREQUENT REST PERIODS CHANGE POSITIONS SLOWLY STAY IN DOORS WHILE HOT AND HUMID BLEEDING PRECAUTIONS FALL PRECAUTIONS FOLLOW PANDEMIC GUIDELINES DIET: CONSISTENT CARBOHYDRATES FOLLOW-UP : SEE DR. FREEMAN/PARMINDER ABREU APRN/ REBECCA CAMPBELL APRN IN THE OFFICE ON 07/03/2021 @ 1130 CODE STATUS: DO NOT INTUBATE, CPR ONLY MRS RODRIGUEZ REMAINS ALERT AND ORIENTED X 4. SHE IS HAVING LESS RT RIB PAIN, NO SOA WITH ACTIVITY. DOES HAVE A PERSISTANT COUGH AT TIMES. OXYGEN SATURATIONS HAVE REMAINED ABOVE 90% ON ROOM AIR. SHE IS UP TOLERATED WITH NO ASSISTIVE DEVICE. HAS BEEN AND REMAINS INDEPENDENT WITH IADL'S AND ADL'S. FEEDS SELF AND 100% OF MEALS CONSUMED WITH ADEQUATE FLUID INTAKE. CONTINENT OF BOWEL AND BLADDER WITH LAST BM 06/24. SHE LIVES ALONE. NEW NEBULIZER AT HOME. MD PARMINDER GARCIA APRN ALYCE HANNAN, APRN
--- NOTE | 2021-06-26 12:58 | PN ---
DATE OF SERVICE: 06/24/2021 SUBJECTIVE: 70 year old year old white female hospitalized with right sided pleurisy with acute pneumonia/bronchitis with severe chronic lung disease. The patient's condition has improved remarkably on steroids, antibiotics and NEBS. She has been up and about walking around. Appetite has improved. She says that she is feeling better. REVIEW OF SYSTEMS: CONSTITUTIONAL: No night sweats. No fatigue, malaise, lethargy. No fever or chills. HEENT: Eyes: No visual changes. No eye pain. No eye discharge. ENT: No runny nose. No epistaxis. No sinus pain. No sore throat. No odynophagia. No congestion. RESPIRATORY: No cough, no congestion. No hemoptysis. No shortness of breath. CARDIOVASCULAR: No angina symptoms. No CHF symptoms. No atypical chest pain for CAD. No palpitations. No PND. No orthopnea. GASTROINTESTINAL: No abdominal pain. No nausea or vomiting. No diarrhea or constipation. No hematemesis. No hematochezia. GENITOURINARY: No urgency. No frequency. No dysuria. No hematuria. No obstructive symptoms. No discharge. No pain. No significant abnormal bleeding. MUSCULOSKELETAL: No musculoskeletal pain; no joint swelling. NEUROLOGICAL: No headache. No neck pain. No syncope. No seizures. No dizziness. PSYCHIATRIC: Not anxious. No depression. No suicidal thoughts. No homicidal thoughts. SKIN: No rash. No lesions. No wounds. ENDOCRINE: No unexplained weight loss. No weight gain. HEMATOLOGIC/LYMPHATIC: No anemia. No purpura. No petechiae. No prolonged or excessive bleeding. No palpable lymph nodes. PHYSICAL EXAMINATION: VITAL SIGNS: Temperature 97.4, pulse 72, respiratory rate 18, blood pressure 125/73 and pulse ox 96% HEENT: Head normocephalic, atraumatic. Eyes: Extraocular muscles are intact. Pupils are equal, round and reactive to light and accommodation. Ears: No lesions. Nose appeared normal. Throat: No exudate or erythema. NECK: Supple. No JVD, no carotid bruit. No lymphadenopathy or thyromegaly. LUNGS: Decreased breath sounds but clear to auscultation. Percussion note normal. Chest symmetrical. HEART: S1, S2, no S3. No murmurs. No cyanosis or clubbing. No ascites. Pulses: Dorsalis pedis and posterior tibial pulses +1 to +2 bilaterally. ABDOMEN: Soft. Nontender. Bowel sounds active. No CVA tenderness. No mass felt. EXTREMITIES: No edema. Full range of motion of all extremities, equal. NEUROLOGIC: No focal deficit. Cranial nerves II through XII are grossly intact. No headache. No double vision. SKIN: Not dry. Intact. Turgor - normal. LYMPHATIC: No palpable lymph nodes/no lymphedema. MUSCULOSKELETAL: Normal joints with no swelling. Muscle tone is normal. LABS: hgb 11.9, hct 38, WBC 13,000 normal differential, creatinine 0.6, BUN 12, potassium 4. ASSESSMENT: 1. Acute exacerbation of COPD with pneumonitis seems to be resolving 2. Right sided pleuritic pain has resolved 3. Chronic lung disease PLAN: 1. Advised to continue steroids, NEBS and antibiotics 2. Discontinue telemetry 3. Advised to keep walking up and about 4. Possible discharge tomorrow. TIME SPENT: More than 30 minutes. Plan and coordination of the patient's care discussed in the presence of nurse. JONATHAN
--- NOTE | 2021-06-30 13:26 | DS ---
DATE OF SERVICE: 06/25/21 CODE STATUS: DO NOT INTUBATE, CPR ONLY FINAL DIAGNOSIS: 1. RIGHT CHEST WALL PAIN/PLEURISY 2. ACUTE PNEUMONITIS 3. ACUTE COPD EXACERBATION HX: 4. ATRIAL FIBRILLATION WITH ABLATION (DR. ARITA) ON 5. HYPERTENSION 6. CHF 7. DYSLIPIDEMIA 8. COPD, SEES DR. WYATT (08/04) 9. PALPITATIONS 10. DIABETES MELLITUS, TYPE 2 (A1C 6.2 03/04) 11. PULMONARY NODULE, RIGHT LUNG (12/04) 12. CERVICAL LYMPHADENOPATHY, RIGHT 13. POSITIVE SESTAMIBI, 09/02 ([facility]) 14. BRAY[place] SCAN REPEAT AT [facility] WAS NEGATIVE (09/02) 15. COVID 10/2021 16. ANEMIA 17. B12 DEFICIENCY 18. OSTEOARTHRITIS KNEE 19. OBESITY 20. BILATERAL SCIATICA 21. LUMBAR RADICULOPATHY 22. CHRONIC BACK PAIN 23. HEART CATH, 2011 24. ABLATION, DR. ARITA (2014) 25. CHOLECYSTECTOMY 26. ANJEL 27. ECHOCARDIOGRAM (07/30/20) LVH WITH ENLARGED LEFT ATRIAL CAVITY, 5.7 CM LVEF 45% LAST VITALS Temp Pulse Resp BP Pulse Ox 97.6 F 70 18 133/71 95 06/25/21 05:45 06/25/21 05:45 06/25/21 05:45 06/25/21 05:45 06/25/21 05:45 DISCHARGE INSTRUCTIONS: 1. DISCHARGE: HOME TODAY 06/25/2021 INDEPENDENTLY AND LIVES ALONE 2. MD FOLLOW-UP : SEE DR. FREEMAN/PARMINDER ABREU APRN/REBECCA CAMPBELL APRN IN THE OFFICE ON 07/03/2021 @ 1130 MEDICATIONS AT DISCHARGE: Hydrocodone Bitart/Acetaminophen (Hydrocodone Bit/Acetaminophen 7.5/325 Mg Tablet) 1 tab PO BID PRN PRN Reason: Severe Pain Last Admin: 06/25/21 02:29 Dose: 1 tab Apixaban (Apixaban 5 Mg Tab) 5 mg PO BID [facility] Last Admin: 06/25/21 09:07 Dose: 5 mg Atorvastatin Calcium (Atorvastatin Calcium 20 Mg Tablet) 40 mg PO BEDTIME [facility] Last Admin: 06/24/21 20:21 Dose: 40 mg Carvedilol (Carvedilol 6.25 Mg Tablet) 6.25 mg PO BIDWM [facility] Last Admin: 06/25/21 09:06 Dose: 6.25 mg Docusate Sodium (Docusate Sodium 100 Mg Capsule) 100 mg PO BID PRN PRN Reason: Constipation Last Admin: 06/24/21 09:07 Dose: 100 mg Flecainide Acetate (Flecainide Acetate 100 Mg Tablet) 100 mg PO BID [facility] Last Admin: 06/25/21 09:06 Dose: 100 mg Hydrochlorothiazide (Hydrochlorothiazide 25 Mg Tablet) 6.25 mg PO DAILY [facility] Last Admin: 06/25/21 09:06 Dose: 6.25 mg Lorazepam (Lorazepam 1 Mg Tablet) 1 mg PO BID PRN PRN Reason: Anxiety Losartan Potassium (Losartan Potassium 25 Mg Tablet) 25 mg PO DAILY [facility] Last Admin: 06/25/21 09:06 Dose: 25 mg Metformin HCl (Metformin Hcl 500 Mg Tablet) 500 mg PO BIDWM [facility] Last Admin: 06/25/21 09:06 Dose: 500 mg Nitroglycerin (Nitroglycerin 0.4 Mg Tab.Subl) 0.4 mg SL Q5MIN X 3 DOSES PRN PRN Reason: Angina ALBUTEROL 0.083%/ 2.5 MG 3-4 X DAILY PER NEBULIZER PREDNISONE 20 MG PO BID X 5 DAYS ( START 06/26/2021) OMNICEF 300 MG PO BID X 7 DAYS ( START 06/26/2021) PHENERGAN/CODIENE SYRUP 1 TSP PO Q 6 HOURS PRN FOR COUGH ALBUTEROL MDI 2 PUFFS TID PRN NEW PRESCRIPTIONS: ALBUTEROL 0.083% 3-4 X DAILY NEBULIZER PREDNISONE 20 MG PO BID X 5 DAYS ( START 06/26/2021) # 10, NO REFILLS OMNICEF 300 MG PO BID X 7 DAYS ( START 06/26/2021) # 14, NO REFILLS PHENERGAN/CODIENE SYRUP 1 TSP PO Q 6 HOURS PRN FOR COUGH, # 4 OZ, NO REFILLS DISCONTINUED MEDICATIONS: NONE DIET INSTRUCTIONS: CONSISTENT CARBOHYDRATES ACTIVITY: UP TOLERATED WITH FREQUENT REST PERIODS CHANGE POSITIONS SLOWLY STAY IN DOORS WHILE HOT AND HUMID BLEEDING PRECAUTIONS FALL PRECAUTIONS FOLLOW PANDEMIC GUIDELINES SMOKING: N/A DISEASE SPECIFIC EDUCATION: PNEUMONITIS COPD NEW MEDICATIONS NEBULIZER BLEEDING PRECAUTIONS COVID PRECAUTIONS HOSPITAL COURSE: This is a white female who is a direct admit from our office. She had undergone two rounds of antibiotics and steroids for acute bronchitis/pneumonitis. When she presented to the office she was more short of breath, reported right chest wall pain with inspiration, coughing. This had gotten worse over the past several weeks. She was admitted, placed on Solu-Cortef 125 mg IV q.8 along with Rocephin 1 gm IV daily. Chest x-ray showed no acute process. Over the course of the next several days, her pleuritic pain significantly improved. Today, on the day of discharge, she is feeling much better. She is able to take a deep breath without much pain. She does have some slight pain with coughing. She will be discharged home on Omnicef 300 mg b.i.d. for 7 days and Prednisone 20 mg b.i.d. for five days. She will be discharged home in stable condition and will followup with us next week. TIME SPENT: More than 60 minutes. JONATHAN
== END 2021-06-25 11:54 | disposition home or self-care (01) | DRG 194 ==
LOC: LAB 12:11 → MEDSURG A 13:54
PROVIDERS: ADMIT Internal Medicine; ATTEND Internal Medicine

== ENCOUNTER 2021-11-10 10:54 | Inpatient (IN) ==
[2021-11-10 11:10] VITALS: BMI 39.9
--- NOTE | 2021-11-10 11:13 | ED.PDOC ---
General ED Provider: Dr. TIAN VALIENTE Chief Complaint: Abdominal Pain Stated Complaint: Pain in RUQ /lower rt anterior chest wall pain -, onset last pm -brought in by her Time Seen by Provider: 11/10/21 10:55 Mode of Arrival: Wheelchair Information Source: Patient Exam Limitations: Clinical condition Primary Care Provider: TEZ FREEMAN Nursing and Triage Documentation Reviewed and Agree: Yes Does patient meet sepsis criteria?: No System Inflammatory Response Syndrome: Not Applicable Sepsis Protocol: For patient's 13 years and over: Temp is 96.8 and below OR 101 and greater Pulse >90 BPM Resp >20/minute Acutely Altered Mental Status Are patient's symptoms suggestive of a new infection, such as: -Pneumonia -Skin, Soft Tissue -Endocarditis -UTI -Bone, Joint Infection -Implantable Device -Acute Abdominal Infection -Wound Infection -Meningitis -Blood Stream Catheter Infection -Unknown Cardiovascular Complaint Exam Chest Pain Complaint/Exam Onset: Sudden Duration: 12 hrs Symptoms Are: Still present Timing: Constant Length of Chest Pain Episodes: several hours Initial Severity: Mild Current Severity: Moderate Location: Reports Right anterior Pain Radiates: Reports Epigastrium Character: Reports Heaviness, Squeezing and Sharp Aggravating: Reports Exertion Alleviating: Reports None Associated Signs and Symptoms: Reports Nausea and Short of air Related Surgical History: Reports Cardiac Cath (Ablation ) History of Healthcare-Acquired Pneumonia: Reports No AMI/ACS Risk Factors: Reports Myocardial Infarction, Sedentary, Diabetes, Obesity and Hypertension TAD Risk Factors: Reports None Pulmonary Embolism Risk Factors: Reports None Prior Care for this Complaint: No Recent Stress Test: No Recent Echo/LV Function: No JVD Present: No Subcutaneous Emphysema Present: No Diminshed Breath Sounds: No Reproducible Chest Wall Pain: No Bilateral Pulses Present: No If Risk Factors for AMI/ACS Consider: EKG and Cardiac Enzymes Differential Diagnoses: Acute MT, ACS, Stable Angina and Chest Wall Pain Review of Systems Review Of Systems Constitutional: Reports Malaise Eyes: Reports No symptoms Respiratory: Reports Cough and Short of air Cardiac: Reports No symptoms GI: Reports Abdomen distended, Diarrhea, Nausea, Poor appetite, Poor fluid intake and Vomiting : Reports No symptoms Musculoskeletal: Reports No symptoms Skin: Reports No symptoms Neurological: Reports Anxiety Endocrine: Reports No symptoms All Other Systems: Reviewed and Negative [facility] Medical History Anemia Anxiety Asthma Atrial fibrillation Cardiomegaly CHF (congestive heart failure) Chronic low back pain Chronic otitis media COPD (chronic obstructive pulmonary disease) Degenerative joint disease of spine Diabetes mellitus, type 2 Dyslipidemia Emphysema of lung GERD (gastroesophageal reflux disease) Hypertension Hypothyroidism Insomnia Lumbar facet arthropathy Obesity (BMI 30-39.9) Osteoarthritis Radiculopathy of lumbar region Sciatica Sensorineural hearing loss (SNHL) of both ears Family History (Updated 11/10/21 @ 17:56 by ZBIGNIEW BENJAMIN RN) Mother Diabetes Social History Smoking and tobacco status: Former smoker Alcohol intake: never History of recent travel: No Surgical History History of bilateral cataract extraction History of cardiac cath History of cardiac radiofrequency ablation History of section History of cholecystectomy History of colonoscopy History of esophagogastroduodenoscopy (EGD) History of hysterectomy Female Reproductive History Menstrual Hx Hysterectomy: Yes Hx Tubal Ligation: No Physical Exam Physical Exam Appearance: Reports Ill-appearing and Obese Ill-appearing: Mild Pain Distress: Mild Eyes: Reports [place], Conjunctiva clear, Conjunctiva inflammed and Conjunctiva pale ENT: Reports Ears normal, Nose normal and Oropharynx normal Neck: Supple Respiratory: Reports Airway patent and Breath sounds clear Cardiovascular: Reports RRR, Pulses normal, No rub and No murmur GI/: Reports Tender (RUQ) Musculoskeletal: Reports Normal strength Skin: Reports Warm and Dry Neurological: Reports Sensation intact, Reflexes intact, Cranial nerves intact, Alert, Oriented and Disoriented Psychiatric: Reports Mood appropriate Interpretation EKG Interpretation Time of EKG #1: 11:02 Rate: Normal Rhythm: Sinus Ectopy: None [place]: NL ST Segment: Other (non specific intraventricualr conductiopm delay) Interpretation: intraventricualr conductiopm delay Physician Notification Case Discussed Physician Notified: Dr FREEMAN Time of Notification: 14:00 Critical Care Note Critical Care Note Total Critical Care Time (mins): 30 Course Course Hematology/Chemistry: 11/11/21 05:00 11/11/21 05:00 Orders, Labs, Meds: Lab Review 11/10/21 11/10/21 11/10/21 11:00 11:15 11:25 WBC 9.95 RBC 4.31 Hgb 12.2 Hct 38.4 MCV 89.1 MCH 28.3 MCHC 31.8 RDW Coeff of Vel 13.3 Plt Count 200 Immature Gran % (Auto) 0.3 Neut % (Auto) 81.8 H Lymph % (Auto) 10.9 [place] % (Auto) 5.2 Eos % (Auto) 1.6 Baso % (Auto) 0.2 Neut # (Auto) 8.1 H Lymph # (Auto) 1.1 [place] # (Auto) 0.5 Eos # (Auto) 0.2 Baso # (Auto) 0.0 Immature Gran # (Auto) 0.0 ESR PT INR APTT Puncture Site R rad Base Excess 0.9 O2 Saturation 96.4 ABG pH 7.44 ABG pCO2 37.0 ABG pO2 82.0 L ABG HCO3 25.1 ABG Total CO2 26.2 H Carl Test Y Hemoglobin 1.4 Oxyhemoglobin 95.0 Carboxyhemoglobin 1.9 H Total Hemoglobin 12.8 FiO2 % 21.0 Sodium Potassium Chloride Carbon Dioxide Anion Gap BUN Creatinine Estimated GFR (MDRD) BUN/Creatinine Ratio Glucose Lactic Acid Uric Acid Calcium Magnesium Total Bilirubin AST ALT Alkaline Phosphatase Total Creatine Kinase Troponin I Total Protein Albumin Globulin Albumin/Globulin Ratio Amylase Lipase Procalcitonin D-Dimer Adenovirus (PCR) Not detected B. pertussis DNA (PCR) Not detected B.parapertussis DNA PCR Not detected C. pneumoniae DNA (PCR) Not detected Coronavirus OC43 (PCR) Not detected Coronavirus HKU1 (PCR) Not detected Coronavirus 229E (PCR) Not detected Coronavirus NL63 (PCR) Not detected Human Metapneumovir PCR Not detected Influenza Type A (PCR) Not detected Influenza B (RT-PCR) Not detected M. pneumoniae (PCR) Not detected Parainfluenza 1 (PCR) Not detected Parainfluenza 2 (PCR) Not detected Parainfluenza 3 (PCR) Not detected Parainfluenza 4 (PCR) Not detected RSV (PCR) Not detected Entero/Rhino (PCR) Not detected SARS-CoV-2 (PCR) Not detected 11/10/21 11/10/21 11/10/21 11:25 11:25 11:25 WBC RBC Hgb Hct MCV MCH MCHC RDW Coeff of Vel Plt Count Immature Gran % (Auto) Neut % (Auto) Lymph % (Auto) [place] % (Auto) Eos % (Auto) Baso % (Auto) Neut # (Auto) Lymph # (Auto) [place] # (Auto) Eos # (Auto) Baso # (Auto) Immature Gran # (Auto) ESR 64 H PT 10.8 INR 1.04 APTT 28.5 Puncture Site Base Excess O2 Saturation ABG pH ABG pCO2 ABG pO2 ABG HCO3 ABG Total CO2 Carl Test Hemoglobin Oxyhemoglobin Carboxyhemoglobin Total Hemoglobin FiO2 % Sodium 134.8 Potassium 3.71 Chloride 103.6 Carbon Dioxide 25.4 Anion Gap 9.51 BUN 11.7 Creatinine 0.78 Estimated GFR (MDRD) 73.00 BUN/Creatinine Ratio 15.00 Glucose 122.7 H Lactic Acid Uric Acid 6.57 H Calcium 8.80 Magnesium 1.73 Total Bilirubin 0.78 AST 22.6 ALT 15.6 Alkaline Phosphatase 151.7 H Total Creatine Kinase 31.1 Troponin I < 0.012 Total Protein 6.71 Albumin 3.77 Globulin 2.94 Albumin/Globulin Ratio 1.28 Amylase 41.8 Lipase 17.2 L Procalcitonin D-Dimer Adenovirus (PCR) B. pertussis DNA (PCR) B.parapertussis DNA PCR C. pneumoniae DNA (PCR) Coronavirus OC43 (PCR) Coronavirus HKU1 (PCR) Coronavirus 229E (PCR) Coronavirus NL63 (PCR) Human Metapneumovir PCR Influenza Type A (PCR) Influenza B (RT-PCR) M. pneumoniae (PCR) Parainfluenza 1 (PCR) Parainfluenza 2 (PCR) Parainfluenza 3 (PCR) Parainfluenza 4 (PCR) RSV (PCR) Entero/Rhino (PCR) SARS-CoV-2 (PCR) 11/10/21 11/10/21 11/10/21 11:25 11:25 11:25 WBC RBC Hgb Hct MCV MCH MCHC RDW Coeff of Vel Plt Count Immature Gran % (Auto) Neut % (Auto) Lymph % (Auto) [place] % (Auto) Eos % (Auto) Baso % (Auto) Neut # (Auto) Lymph # (Auto) [place] # (Auto) Eos # (Auto) Baso # (Auto) Immature Gran # (Auto) ESR PT INR APTT Puncture Site Base Excess O2 Saturation ABG pH ABG pCO2 ABG pO2 ABG HCO3 ABG Total CO2 Carl Test Hemoglobin Oxyhemoglobin Carboxyhemoglobin Total Hemoglobin FiO2 % Sodium Potassium Chloride Carbon Dioxide Anion Gap BUN Creatinine Estimated GFR (MDRD) BUN/Creatinine Ratio Glucose Lactic Acid 0.84 Uric Acid Calcium Magnesium Total Bilirubin AST ALT Alkaline Phosphatase Total Creatine Kinase Troponin I Total Protein Albumin Globulin Albumin/Globulin Ratio Amylase Lipase Procalcitonin < 0.05 D-Dimer 545.54 H Adenovirus (PCR) B. pertussis DNA (PCR) B.parapertussis DNA PCR C. pneumoniae DNA (PCR) Coronavirus OC43 (PCR) Coronavirus HKU1 (PCR) Coronavirus 229E (PCR) Coronavirus NL63 (PCR) Human Metapneumovir PCR Influenza Type A (PCR) Influenza B (RT-PCR) M. pneumoniae (PCR) Parainfluenza 1 (PCR) Parainfluenza 2 (PCR) Parainfluenza 3 (PCR) Parainfluenza 4 (PCR) RSV (PCR) Entero/Rhino (PCR) SARS-CoV-2 (PCR) Orders Category Date Time Status ADMIT PATIENT INPATIENT .[facility] (MONITORED BED) ADMISSION 11/10/21 15:02 Completed ABG DRAW REQUEST Stat CARDIO 11/10/21 10:57 Completed EKG-(ED ONLY) Stat CARDIO 11/10/21 11:31 Completed EKG-(IP & OP ONLY) Routine CARDIO 11/11/21 06:00 Completed NEBULIZER TREATMENT Routine CARDIO 11/10/21 15:05 Completed OXYGEN Routine CARDIO 11/10/21 15:03 Completed ACTIVITY .Up ad Lisa CARE 11/10/21 15:04 Completed BLOOD GLUCOSE MONITORING (MED/SURG) 0630,1100,1700,2100 CARE 11/10/21 15:05 Completed CASE MANAGEMENT CONSULT ONCE CARE 11/10/21 15:03 Completed GIVE HS SNACK 2100 CARE 11/10/21 15:04 Completed INTAKE & OUTPUT Q8HR CARE 11/10/21 15:03 Completed TELEMETRY MONITORING TELE CARE 11/10/21 15:02 Completed VITAL SIGNS Q4HR CARE 11/10/21 15:04 Completed HS SNACK DIETARY 11/10/21 Dinner Completed IV [ED IV/MEDIPORT/POWERPORT] .ONCE EMERGENCY 11/10/21 10:56 Completed ABG COOX Stat LAB 11/10/21 11:15 Completed AMYLASE Stat LAB 11/10/21 11:25 Completed BLOOD CULTURE (ED ONLY) Stat LAB 11/10/21 11:25 Completed CBC W/ AUTO DIFF DAILY@0600 LAB 11/11/21 05:00 Completed CBC W/ AUTO DIFF Stat LAB 11/10/21 11:25 Completed CHLAMYDIA/GC AMPLIFICATION Stat LAB 11/10/21 20:20 Completed CMP [COMPREHENSIVE METABOLIC PANEL] Stat LAB 11/10/21 11:25 Completed CPK [CREATINE KINASE] Stat LAB 11/10/21 11:25 Completed CREATINE KINASE Q8H LAB 11/10/21 21:20 Completed CREATINE KINASE Q8H LAB 11/11/21 05:00 Completed D-DIMER Stat LAB 11/10/21 11:25 Completed ESR Stat LAB 11/10/21 11:25 Completed LACTIC ACID Stat LAB 11/10/21 11:25 Completed LIPASE Stat LAB 11/10/21 11:25 Completed MAGNESIUM Stat LAB 11/10/21 11:25 Completed PARTIAL THROMBOPLASTIN TIME Stat LAB 11/10/21 11:25 Completed PROCALCITONIN Stat LAB 11/10/21 11:25 Completed PT WITH INR Stat LAB 11/10/21 11:25 Completed RESPIRATORY PANEL 2.1 (PCR) Stat LAB 11/10/21 11:00 Completed TROPONIN I Q8H LAB 11/10/21 21:20 Completed TROPONIN I Q8H LAB 11/11/21 05:00 Completed TROPONIN I Stat LAB 11/10/21 11:25 Completed UA [URINALYSIS C & S IF INDICATED] Stat LAB 11/10/21 20:10 Completed URIC ACID Stat LAB 11/10/21 11:25 Completed URINE DRUG SCREEN (RAPID FOR ED) [DRUG SCREEN, URINE, LAB 11/10/21 20:10 Completed RAPID] Stat 0.9 % Sodium Chloride [Saline Flush] MEDS 11/10/21 10:56 Discontinued 1 syr IVF PRN PRN Acetaminophen [Tylenol] MEDS 11/10/21 15:03 Discontinued 650 mg PO Q4H PRN Dexamethasone Sod Phosphate [Decadron] MEDS 11/10/21 15:01 Discontinued 6 mg IVP ONCE STA Hydrocodone Bit/Acetaminophen [[place] 5-325] MEDS 11/10/21 13:41 Discontinued 1 tab PO ONCE STA Ipratropium/Albuterol Neb [Duoneb] MEDS 11/10/21 20:00 Discontinued 3 ml NEB RTQID Ondansetron HCl/Pf [Zofran 4 mg/2 ml] MEDS 11/10/21 15:03 Discontinued 4 mg IVP Q6H PRN Potassium Chloride in 0.9%NaCl [Sodium Chloride 0.9%- MEDS 11/10/21 15:30 Discontinued KCl 20 Meq] 1,000 ml IV 70 mls/hr Sodium Chloride 0.9% [Sodium Chloride] 1,000 ml MEDS 11/10/21 14:23 Discontinued IV BOLUS RESUSCITATION STATUS Routine OTHERS 11/10/21 15:03 Completed CHEST, 1V AP ONLY Stat RADS 11/10/21 10:[address] ABD/PEL WO RENAL STONE PROT Stat RADS 11/10/21 13:21 Completed Medications Discontinued Medications Generic Name Dose Route Start Last Admin Trade Name Freq PRN Reason Stop Dose Admin Acetaminophen 650 mg 11/10/21 15:03 Acetaminophen 325 Mg Tablet PO Q4H PRN pain or temperature elevatioin Hydrocodone Bitart/Acetaminophen 1 tab 11/10/21 13:41 11/10/21 13:44 Hydrocodone Bit/Acetaminophen 5/325 Mg Tablet PO 11/10/21 13:42 1 tab ONCE STA Administration Hydrocodone Bitart/Acetaminophen 1 tab 11/10/21 21:39 Hydrocodone Bit/Acetaminophen 7.5/325 Mg Tablet PO BID PRN Pain Albuterol/Ipratropium 3 ml 11/10/21 20:00 11/11/21 10:24 Ipratropium/Albuterol Vial.Neb NEB 3 ml RTQID CINTHIA Administration Apixaban 5 mg 11/11/21 09:00 11/11/21 10:14 Apixaban 5 Mg Tab PO 5 mg BID CINTHIA Administration Atorvastatin Calcium 40 mg 11/11/21 21:00 Atorvastatin Calcium 20 Mg Tablet PO BEDTIME CINTHIA Carvedilol 6.25 mg 11/11/21 08:30 11/11/21 10:12 Carvedilol 6.25 Mg Tablet PO 6.25 mg BIDWM CINTHIA Administration Dexamethasone Sodium Phosphate 6 mg 11/10/21 15:01 11/10/21 15:18 Dexamethasone Sod Phos 10 Mg/Ml Inj IVP 11/10/21 15:02 6 mg ONCE STA Administration Docusate Sodium 100 mg 11/10/21 21:39 Docusate Sodium 100 Mg Capsule PO BID PRN Constipation Flecainide Acetate 100 mg 11/11/21 09:00 11/11/21 10:11 Flecainide Acetate 100 Mg Tablet PO 100 mg BID CINTHIA Administration Hydrochlorothiazide 6.25 mg 11/11/21 09:00 11/11/21 10:11 Hydrochlorothiazide 25 Mg Tablet PO 6.25 mg DAILY CINTHIA Administration Sodium Chloride 1,000 mls @ 1,000 mls/hr 11/10/21 14:23 11/10/21 14:30 Sodium Chloride IV 11/10/21 15:22 1,000 mls/hr BOLUS STA Administration Potassium Chloride/Sodium Chloride 1,000 mls @ 70 mls/hr 11/10/21 15:30 11/11/21 10:13 Sodium Chloride 0.9%-Kcl 20 Meq IV 70 mls/hr .[id number] CINTHIA Administration Lorazepam 1 mg 11/10/21 21:39 Lorazepam 0.5 Mg Tablet PO BID PRN Anxiety Lorazepam 1 mg 11/11/21 07:39 Lorazepam 1 Mg Tablet PO BID PRN Anxiety Losartan Potassium 25 mg 11/11/21 09:00 11/11/21 10:11 Losartan Potassium 25 Mg Tablet PO 25 mg DAILY CINTHIA Administration Metformin HCl 500 mg 11/11/21 08:30 11/11/21 10:11 Metformin Hcl 500 Mg Tablet PO 500 mg DAILYWM CINTHIA Administration Nitroglycerin 0.4 mg 11/10/21 21:39 Nitroglycerin 0.4 Mg Tab.Subl SL Q5MIN X 3 DOSES PRN Chest Pain Ondansetron HCl 4 mg 11/10/21 15:03 Ondansetron Hcl/Pf 4 Mg/2 Ml Sdv IVP Q6H PRN Nausea / Vomiting Sodium Chloride 1 syr 11/10/21 10:56 0.9% Sodium Chloride 10 Ml Disp.Syrin IVF PRN PRN To flush IV Vital Signs: Temp Pulse Resp BP Pulse Ox 11/10/21 11:01 100.2 F H 75 22 167/88 H 96 MITZI Risk Score MITZI Risk Score: Risk Score Odds of by 30D 0 0.1 (0.1-0.2) 1 0.3 (0.2-0.3) 2 0.4 (0.3-0.5) 3 0.7 (0.6-0.9) 4 1.2 (1.0-1.5) 5 2.2 (1.9-2.6) 6 3.0 (2.5-3.6) 7 4.8 (3.8-6.1) Discharge Plan Discharge Patient Disposition: ADMITTED INPATIENT Discharge Problem: Abdominal pain, Gastroenteritis ED Provider: TIAN VALIENTE Condition: Stable Physician Progress Note: []
[2021-11-10 11:27] LABS: ABG PH 7.44 (7.35-7.45); BEecf 0.9 (-2.0-3.0); COHb 1.9 (0.5-1.5); HCO3 25.1 (21-28); MetHb 1.4 (0-1.5); TCO2 26.2 (19-24); sO2 96.4 % (94-98); tHb 12.8 g/dl (11.7-17.4)
[2021-11-10 11:31] LABS: BASOPHILS % (AUTO) 0.2 % (0.0-3.0); EOSINOPHILS # (AUTO) 0.2 K/ul (0.0-0.7); EOSINOPHILS % (AUTO) 1.6 % (0.0-7.0); HEMATOCRIT 38.4 % (37.0-47.0); HEMOGLOBIN 12.2 g/dl (12.0-16.0); IMMATURE GRANULOCYTE % (AUTO) 0.3 % (0.0-5.0); LYMPHOCYTES # (AUTO) 1.1 K/uL (0.60-3.4); LYMPHOCYTES % (AUTO) 10.9 (10.0-50.0); MEAN CORPUSCULAR HEMOGLOBIN 28.3 pg (27.0-31.0); MEAN CORPUSCULAR HGB CONC 31.8 (31.8-35.4); MEAN CORPUSCULAR VOLUME 89.1 fl (81.0-99.0); MONOCYTES # (AUTO) 0.5 K/uL (0.4-2.0); MONOCYTES % (AUTO) 5.2 (0-10); NEUTROPHILS # (AUTO) 8.1 K/ul (2.0-6.9); NEUTROPHILS % (AUTO) 81.8 % (42.2-75.2); PLATELET COUNT 200 10^3/uL (140-440); RDW COEFFICIENT OF VARIATION 13.3 % (11.6-14.8); RED BLOOD COUNT 4.31 10^6/ul (4.20-5.40); WHITE BLOOD COUNT 9.95 K/ul (4.6-10.2)
[2021-11-10 11:34] LABS: BORDETELLA PARAPERTUSSIS (PCR) NOT DETECTED (NOT DETECT); BORDETELLA PERTUSSIS (PCR) NOT DETECTED (NOT DETECT); CHLAMYDIA PNEUMONIAE (PCR) NOT DETECTED (NOT DETECT); CORONAVIRUS 229E (PCR) NOT DETECTED (NOT DETECT); CORONAVIRUS HKU1 (PCR) NOT DETECTED (NOT DETECT); CORONAVIRUS NL63 (PCR) NOT DETECTED (NOT DETECT); CORONAVIRUS OC43 (PCR) NOT DETECTED (NOT DETECT); HUMAN METAPNEUMOVIRUS (PCR) NOT DETECTED (NOT DETECT); HUMAN RHINOVIRUS/ENTEROV (PCR) NOT DETECTED (NOT DETECT); INFLUENZA B (PCR) NOT DETECTED (NOT DETECT); MYCOPLASMA PNEUMONIAE (PCR) NOT DETECTED (NOT DETECT); PARAINFLUENZA VIRUS 1 (PCR) NOT DETECTED (NOT DETECT); PARAINFLUENZA VIRUS 2 (PCR) NOT DETECTED (NOT DETECT); PARAINFLUENZA VIRUS 3 (PCR) NOT DETECTED (NOT DETECT); PARAINFLUENZA VIRUS 4 (PCR) NOT DETECTED (NOT DETECT); RESPIRATORY SYNCYTIAL V (PCR) NOT DETECTED (NOT DETECT); SARS_COV_2 (PCR) NOT DETECTED (NOT DETECT)
[2021-11-10 11:50] LABS: ALANINE AMINOTRANSFERASE 15.6 U/L (0-35); ALBUMIN 3.77 g/dL (3.5-5.0); ALKALINE PHOSPHATASE 151.7 U/L (53-141); AMYLASE 41.8 U/L (30-110); ASPARTATE AMINO TRANSFERASE 22.6 U/L (14-36); BILIRUBIN,TOTAL 0.78 mg/dL (0.2-1.3); BLOOD UREA NITROGEN 11.7 mg/dL (7-17); CARBON DIOXIDE 25.4 mmol/L (22-30.0); CHLORIDE 103.6 mmol/L (98-107); CREATINE KINASE 31.1 U/L (30-135); CREATININE 0.78 mg/dL (0.60-1.30); GLUCOSE 122.7 mg/dL (74-106); LIPASE 17.2 U/L (23-300); MAGNESIUM 1.73 mg/dL (1.6-2.3); POTASSIUM 3.71 mmol/L (3.5-5.1); SODIUM 134.8 mmol/L (134.5-145); TOTAL PROTEIN 6.71 g/dL (6.3-8.2); URIC ACID 6.57 mg/dL (2.5-6.2)
[2021-11-10 11:55] LABS: PARTIAL THROMBOPLASTIN TIME 28.5 SEC (23.9-40.0); PROTHROMBIN TIME 10.8 SEC (9.3-11.0)
[2021-11-10 12:02] LABS: TROPONIN I < 0.012 ng/ml (0.0000-0.120)
[2021-11-10 12:10] LABS: ERYTHROCYTE SEDIMENTATION RATE 64 mm/hr (0-20)
[2021-11-10 12:23] LABS: ADENOVIRUS (PCR) NOT DETECTED (NOT DETECT)
--- NOTE | 2021-11-10 13:06 | DI ---
EXAM: Single frontal view of the chest HISTORY: Chest pain and shortness of breath. COMPARISON: Chest x-ray 11/01/2020 and multiple priors FINDINGS: Cardiomediastinal silhouette is unchanged. There is no pneumothorax or effusion. There ar e calcified granulomas present. There is no consolidation or mass. The osseous structures are unrem arkable. IMPRESSION: No acute cardiopulmonary process
[2021-11-10] MEDS ORDERED: TORADOL IVP STA (13:40)
[2021-11-10] MEDS ORDERED: NORCO 5-325 PO STA (13:41)
--- NOTE | 2021-11-10 14:05 | CT ---
EXAM: CT of the abdomen and pelvis without contrast COMPARISON: None. HISTORY: Right upper quadrant pain. TECHNIQUE: Axial CT images were obtained through the abdomen without the administration of intravenou s contrast. Coronal and sagittal reformatted images were also submitted for interpretation. FINDINGS: Liver: Normal morphology. Hepatic steatosis. Gallbladder: Cholecystectomy clips. Bile ducts: No intra or extrahepatic biliary ductal dilatation. Pancreas: Atrophic changes. The main pancreatic duct is not dilated. Spleen: The spleen is not enlarged. Small accessory splenule. Adrenal glands: Within normal limits. Kidneys: No hydronephrosis. No renal calculi. Ureters: Within normal limits Urinary bladder: Within normal limits Reproductive organs: No pelvic masses. Peritoneum: No ascites or free intraperitoneal air. Bowel: Small hiatal hernia. Normal caliber. Scattered colonic diverticula without evidence of acute diverticulitis. Normal appendix. Lymph nodes: No lymphadenopathy. Vessels: Atherosclerosis in the abdominal aorta and branch vessels. No aneurysm. Distal aortic left renal vein. Abdominal wall: Small fat containing umbilical hernia. Osseous structures: Degenerative changes. Lower thorax: Calcified granulomas. Linear atelectatic changes in the lingula and right middle lobe. Coronary atherosclerosis. IMPRESSION: - Lack of IV contrast limits the evaluation for infectious and neoplastic processes. - No acute findings in the abdomen or pelvis. No findings to explain this patient's symptoms. Pearl l appendix. No renal calculi or hydronephrosis. - Scattered colonic diverticula without evidence of acute diverticulitis. - Coronary atherosclerosis. - Hepatic steatosis - Cholecystectomy clips. - Small hiatal hernia. All CT scans are performed using dose optimization techniques as appropriate to the performed exam an d include at least one of the following: Automated exposure control, adjustment of the mA and/or kV according t o size, and the use of iterative reconstruction technique.
[2021-11-10] MEDS ORDERED: SODIUM CHLORIDE 1,000 ML IV STA (14:23)
[2021-11-10] MEDS ORDERED: DECADRON IVP STA (15:01)
[2021-11-10] MEDS ORDERED: ZOFRAN 4 MG/2 ML IVP PRN (15:03)
[2021-11-10] MEDS ORDERED: TYLENOL PO PRN (15:03)
[2021-11-10] MEDS: DUONEB NEB SCH (20:15)
[2021-11-10 20:24] LABS: BILIRUBIN,URINE Negative (NEGATIVE); CLARITY,URINE Clear (CLEAR); COLOR,URINE Yellow (YELLOW); GLUCOSE, URINE (UA) Negative (NEGATIVE); KETONES,URINE Negative (NEGATIVE); LEUKOCYTE ESTERASE ,URINE 1+ (NEGATIVE); NITRITE,URINE Negative (NEGATIVE); PROTEIN,URINE Negative (NEGATIVE); URINE, BLOOD Trace-lysed (NEGATIVE); UROBILINOGEN,URINE 0.2 (0.2)
[2021-11-10 20:35] LABS: AMPHETAMINE SCREEN,URINE NEGATIVE (NEGATIVE); BARBITURATE SCREEN,URINE NEGATIVE (NEGATIVE); BENZODIAZEPINES SCREEN,URINE NEGATIVE (NEGATIVE); CANNABINOID SCREEN,URINE NEGATIVE (NEGATIVE); COCAIN SCREEN,URINE NEGATIVE (NEGATIVE); METHADONE URINE SCREEN NEGATIVE (NEGATIVE); METHAMPHETAMINES SCREEN,URINE NEGATIVE (NEGATIVE); OPIATE SCREEN,URINE POSITIVE (NEGATIVE); OXYCODONE URINE SCREEN NEGATIVE (NEGATIVE); PHENCYCLIDINE SCREEN,URINE NEGATIVE (NEGATIVE); PROPOXYPHENE URINE SCREEN NEGATIVE (NEGATIVE); TRICYCLIC ANTIDEPRESSANTS URIN NEGATIVE (NEGATIVE)
[2021-11-10] MEDS: SODIUM CHLORIDE 0.9%-KCL 20 MEQ 1,000 ML IV SCH (21:23)
[2021-11-10 21:35] LABS: CREATINE KINASE 35.1 U/L (30-135)
[2021-11-10] MEDS ORDERED: COLACE PO PRN (21:39)
[2021-11-10] MEDS ORDERED: NITROSTAT SL PRN (21:39)
[2021-11-10] MEDS ORDERED: ATIVAN PO PRN (21:39)
[2021-11-10] MEDS ORDERED: NORCO 7.5-325 PO PRN (21:39)
[2021-11-10 21:48] LABS: TROPONIN I < 0.012 ng/ml (0.0000-0.120)
[2021-11-11] MEDS: DUONEB NEB SCH ×2 (04:35→10:24)
[2021-11-11 05:07] LABS: BASOPHILS % (AUTO) 0.2 % (0.0-3.0); HEMATOCRIT 38.2 % (37.0-47.0); HEMOGLOBIN 11.8 g/dl (12.0-16.0); IMMATURE GRANULOCYTE % (AUTO) 0.4 % (0.0-5.0); LYMPHOCYTES # (AUTO) 0.9 K/uL (0.60-3.4); LYMPHOCYTES % (AUTO) 19.4 (10.0-50.0); MEAN CORPUSCULAR HEMOGLOBIN 28.1 pg (27.0-31.0); MEAN CORPUSCULAR HGB CONC 30.9 (31.8-35.4); MONOCYTES # (AUTO) 0.2 K/uL (0.4-2.0); MONOCYTES % (AUTO) 4.8 (0-10); NEUTROPHILS # (AUTO) 3.5 K/ul (2.0-6.9); NEUTROPHILS % (AUTO) 75.2 % (42.2-75.2); PLATELET COUNT 197 10^3/uL (140-440); RDW COEFFICIENT OF VARIATION 13.4 % (11.6-14.8); WHITE BLOOD COUNT 4.59 K/ul (4.6-10.2)
[2021-11-11 05:23] LABS: ALANINE AMINOTRANSFERASE 26.5 U/L (0-35); ALBUMIN 3.66 g/dL (3.5-5.0); ALKALINE PHOSPHATASE 142.7 U/L (53-141); ASPARTATE AMINO TRANSFERASE 29.3 U/L (14-36); BILIRUBIN,TOTAL 0.48 mg/dL (0.2-1.3); CALCIUM 8.54 mg/dL (8.4-10.2); CARBON DIOXIDE 27.6 mmol/L (22-30.0); CHLORIDE 104.4 mmol/L (98-107); CREATININE 0.64 mg/dL (0.60-1.30); GLUCOSE 125.4 mg/dL (74-106); POTASSIUM 3.86 mmol/L (3.5-5.1); SODIUM 138.2 mmol/L (134.5-145); TOTAL PROTEIN 6.69 g/dL (6.3-8.2)
[2021-11-11 05:28] LABS: TROPONIN I < 0.012 ng/ml (0.0000-0.120)
[2021-11-11] MEDS ORDERED: ATIVAN PO PRN (07:39)
[2021-11-11] MEDS ORDERED: GLUCOPHAGE PO SCH (08:30)
[2021-11-11] MEDS ORDERED: COREG PO SCH (08:30)
[2021-11-11] MEDS ORDERED: TAMBOCOR PO SCH (09:00)
[2021-11-11] MEDS ORDERED: ELIQUIS PO SCH (09:00)
[2021-11-11] MEDS ORDERED: HYDROCHLOROTHIAZIDE PO SCH (09:00)
[2021-11-11] MEDS ORDERED: COZAAR PO SCH (09:00)
--- NOTE | 2021-11-11 09:35 | PCM.PROG ---
Attending Provider: ATTENDING PROVIDER: Dr. TEZ FREEAMN This patient is seen with Melissa Ann, Nurse Practitioner. DATE OF SERVICE: 11/11/21 SUBJECTIVE: This 70 year old /WHITE F was hospitalized 11/10/21. She hasn't has any vomiting or diarrhea since admission. We will try to advance diet this morning to soft, bland. The patient states she is feeling better since receiving IV fluids REVIEW OF SYSTEMS: CONSTITUTIONAL: No night sweats. Fatigue. No fever or chills. Weakness. HEENT: Eyes: No visual changes. No eye pain. No eye discharge. ENT: No runny nose. No epistaxis. No sinus pain. No odynophagia. No congestion. RESPIRATORY: No cough, no congestion. No hemoptysis. No shortness of breath. CARDIOVASCULAR: No angina symptoms. No CHF symptoms. No atypical chest pain for CAD. No palpitations. No orthopnea.. GASTROINTESTINAL: No abdominal pain. No nausea or vomiting. No diarrhea or constipation. No hematemesis. No hematochezia. GENITOURINARY: No urgency. No frequency. No dysuria. No hematuria. No obstructive symptoms. No discharge. No pain. No significant abnormal bleeding. MUSCULOSKELETAL: No musculoskeletal pain; no joint swelling. NEUROLOGICAL: Awake, alert, oriented to time, place and person. No headache. No neck pain. No syncope. No seizures. No dizziness. PSYCHIATRIC: Not anxious. No depression. No suicidal thoughts. No homicidal thoughts. SKIN: No rash. No lesions. No wounds. ENDOCRINE: No unexplained weight loss. No weight gain. HEMATOLOGIC/LYMPHATIC: No anemia. No purpura. No petechiae. No prolonged or excessive bleeding. No palpable lymph nodes. PHYSICAL EXAMINATION: GENERAL: The patient is awake, alert and oriented, lying in bed in no distress. VITAL SIGNS: Temperature 98.1 F, Pulse 83, Respiratory Rate 20, BP 151/81, Pulse Ox 94% HEENT: Head normocephalic, atraumatic. Eyes: Extraocular muscles are intact. Pupils are equal, round and reactive to light and accommodation. Ears: No lesions. Nose appeared normal. Throat: No exudate or erythema. NECK: Supple. No JVD, no carotid bruit. No lymphadenopathy or thyromegaly. LUNGS: Diminished breath sounds. Clear to auscultation. Percussion note normal. Chest symmetrical. HEART: S1, S2, no S3. No murmurs. Irregular heart rate. No cyanosis or clubbing. No ascites. Pulses: Dorsalis pedis and posterior tibial pulses +1 to +2 both sides. ABDOMEN: Soft. Non-tender. Bowel sounds active. No CVA tenderness. No mass felt. EXTREMITIES: No edema. Full range of motion of all extremities, equal. NEUROLOGIC: No focal deficit. Cranial nerves II through XII are grossly intact. No headache. No double vision. SKIN: Not dry. Intact. Turgor-normal. LYMPHATIC: No palpable lymph nodes/no lymphedema. MUSCULOSKELETAL: Normal joints with no swelling. Muscle tone is normal. LAB REVIEW: 11/11/21 05:00 11/11/21 05:00 11/11/21 05:00: WBC 4.59 L D, RBC 4.20, Hgb 11.8 L, Hct 38.2, MCV 91.0, MCH 28.1, MCHC 30.9 L, RDW Coeff of Vel 13.4, Plt Count 197, Immature Gran % (Auto) 0.4, Neut % (Auto) 75.2, Lymph % (Auto) 19.4, [place] % (Auto) 4.8, Eos % (Auto) 0.0, Baso % (Auto) 0.2, Neut # (Auto) 3.5, Lymph # (Auto) 0.9, [place] # (Auto) 0.2 L, Eos # (Auto) 0.0, Baso # (Auto) 0.0, Immature Gran # (Auto) 0.0 11/11/21 05:00: Sodium 138.2, Potassium 3.86, Chloride 104.4, Carbon Dioxide 27.6, Anion Gap 10.06, BUN 8.0, Creatinine 0.64, Estimated GFR (MDRD) 91.00, BUN/Creatinine Ratio 12.50, Glucose 125.4 H, Calcium 8.54, Total Bilirubin 0.48, AST 29.3, ALT 26.5, Alkaline Phosphatase 142.7 H, Total Creatine Kinase 33.0, Troponin I < 0.012, Total Protein 6.69, Albumin 3.66, Globulin 3.03, Albumin/Globulin Ratio 1.20 11/10/21 21:20: Total Creatine Kinase 35.1, Troponin I < 0.012 11/10/21 20:10: Urine Opiates Screen Positive H, Ur Oxycodone Screen Negative, Urine Methadone Screen Negative, Ur Propoxyphene Screen Negative, Ur Leila iturates Screen Negative, U Tricyclic Antidepress Negative, Ur Phencyclidine Scrn Negative, Ur Amphetamine Screen Negative, U Methamphetamines Scrn Negative, U Benzodiazepines Scrn Negative, Urine Cocaine Screen Negative, U Cannabinoids Screen Negative 11/10/21 20:10: Urine Color Yellow, Urine Clarity Clear, Urine pH 5.0, Ur Specific [place] 1.010, Urine Protein Negative, Urine Glucose (UA) Negative, Urine Ketones Negative, Urine Blood Trace-lysed, Urine Nitrite Negative, Urine Bilirubin Negative, Urine Urobilinogen 0.2, Ur Leukocyte Esterase 1+ H, Urine Microscopic RBC 2-5, Urine Microscopic WBC 2-5, Ur Squamous Epith Cells 2-5, Ur Renal Epithelial Cell 2-5 11/10/21 11:25: Lactic Acid 0.84 11/10/21 11:25: Procalcitonin < 0.05 11/10/21 11:25: D-Dimer 545.54 H 11/10/21 11:25: Sodium 134.8, Potassium 3.71, Chloride 103.6, Carbon Dioxide 25.4, Anion Gap 9.51, BUN 11.7, Creatinine 0.78, Estimated GFR (MDRD) 73.00, BUN/Creatinine Ratio 15.00, Glucose 122.7 H, Uric Acid 6.57 H, Calcium 8.80, Magnesium 1.73, Total Bilirubin 0.78, AST 22.6, ALT 15.6, Alkaline Phosphatase 151.7 H, Total Creatine Kinase 31.1, Troponin I < 0.012, Total Protein 6.71, Albumin 3.77, Globulin 2.94, Albumin/Globulin Ratio 1.28, Amylase 41.8, Lipase 17.2 L 11/10/21 11:25: PT 10.8, INR 1.04, APTT 28.5 11/10/21 11:25: ESR 64 H 11/10/21 11:25: WBC 9.95, RBC 4.31, Hgb 12.2, Hct 38.4, MCV 89.1, MCH 28.3, MCHC 31.8, RDW Coeff of Vel 13.3, Plt Count 200, Immature Gran % (Auto) 0.3, Neut % (Auto) 81.8 H, Lymph % (Auto) 10.9, [place] % (Auto) 5.2, Eos % (Auto) 1.6, Baso % (Auto) 0.2, Neut # (Auto) 8.1 H, Lymph # (Auto) 1.1, [place] # (Auto) 0.5, Eos # (Auto) 0.2, Baso # (Auto) 0.0, Immature Gran # (Auto) 0.0 11/10/21 11:15: Puncture Site R rad, Base Excess 0.9, O2 Saturation 96.4, ABG pH 7.44, ABG pCO2 37.0, ABG pO2 82.0 L, ABG HCO3 25.1, ABG Total CO2 26.2 H, Carl Test Y, Hemoglobin 1.4, Oxyhemoglobin 95.0, Carboxyhemoglobin 1.9 H, Total Hemoglobin 12.8, FiO2 % 21.0 11/10/21 11:00: Adenovirus (PCR) Not detected, B. pertussis DNA (PCR) Not detected, B.parapertussis DNA PCR Not detected, C. pneumoniae DNA (PCR) Not detected, Coronavirus OC43 (PCR) Not detected, Coronavirus HKU1 (PCR) Not detected, Coronavirus 229E (PCR) Not detected, Coronavirus NL63 (PCR) Not detected, Human Metapneumovir PCR Not detected, Influenza Type A (PCR) Not detected, Influenza B (RT-PCR) Not detected, M. pneumoniae (PCR) Not detected, Parainfluenza 1 (PCR) Not detected, Parainfluenza 2 (PCR) Not detected, Parainfluenza 3 (PCR) Not detected, Parainfluenza 4 (PCR) Not detected, RSV (PCR) Not detected, Entero/Rhino (PCR) Not detected, SARS-CoV-2 (PCR) Not detected ASSESSMENT: Please see below. 1. Acute gastroenteritis 2. Dehydration 3. Atrial fibrillation 4. Diabetes mellitus type II PLAN: 1. GI panel 2. Respiratory panel 3. [place] diet Plan and coordination of the patient's care discussed in the presence of A&P Technician and nurse. SCRIBED BY: FRANCISCO TRENT Assurance Senior scribed while in presence of service performed by Dr. Freeman/Melissa Ann APRN on 11/11/21 ([id number])
--- NOTE | 2021-11-11 09:56 | PN ---
DATE OF SERVICE: 11/10/2021 SUBJECTIVE: The patient was hospitalized with low grade fever, right sided upper quadrant pain mostly costal chondral junction of the abdominal wall. CT scan of the abdomen and pelvis unremarkable with no acute findings. Labs are practically unremarkable including CBC and CMP. The patient is going to be hospitalized and given IV fluids for dehydration. Chronic lung disease which seems to be stable. She will given 1cc Decadron as an antiinflammatory. She is on Eliquis which will be continued. Continue to observe the patient. She will be on routine telemetry orders with serial EKG's and cardiac markers. She is COVID negative. TIME SPENT: More than 30 minutes. Plan and coordination of the patient's care discussed in the presence of nurse. JONATHAN
[2021-11-11] MEDS: SODIUM CHLORIDE 0.9%-KCL 20 MEQ 1,000 ML IV SCH (10:13)
[2021-11-11 11:09] VITALS: BP 132/82; TEMP 97.6
[2021-11-11] MEDS ORDERED: LIPITOR PO SCH (21:00)
[2021-11-12 21:07] LABS: CHLAMYDIA TRACHOMATIS, NAA Negative (Negative); NEISSERIA GONORRHOEAE, NAA Negative (Negative)
--- NOTE | 2021-11-17 10:51 | SSS ---
DATE OF SERVICE: 11/11/21 REASON FOR ADMISSION: Gastroenteritis HISTORY OF PRESENT ILLNESS: Onset of nausea and vomiting and diarrhea on the (11/09) pain under right breast through to back, fever at home. Emesis times one on 11/09. Liquid stools. ER temperature 100.2.. REVIEW OF SYSTEMS: CONSTITUTIONAL: No night sweats. Malaise and weakness. No fever or chills. HEENT: Eyes: No visual changes. No eye pain. No eye discharge. ENT: No runny nose. No epistaxis. No sinus pain. No sore throat. No odynophagia. No ear pain. No congestion. RESPIRATORY: Cough, no congestion. No hemoptysis. No shortness of breath. CARDIOVASCULAR: No angina symptoms. No CHF symptoms. No atypical chest pain for CAD. No palpitations. No orthopnea. GASTROINTESTINAL: Abdominal pain right upper quadrant. Nausea. Diarrhea. No hematemesis. No hematochezia. GENITOURINARY: No dysuria. No hematuria. No obstructive symptoms. No discharge. No pain. No significant abnormal bleeding. MUSCULOSKELETAL: No musculoskeletal pain. No joint swelling. NEUROLOGICAL: Awake, alert, oriented to time, place and person. No headache. No neck pain. No syncope. No seizures. No dizziness. PSYCHIATRIC: Not anxious. No depression. No suicidal thoughts. No homicidal thoughts. SKIN: No rash. No lesions. No wounds. ENDOCRINE: No unexplained weight loss. No weight gain. HEMATOLOGIC/LYMPHATIC: No anemia. No purpura. No petechiae. No prolonged or excessive bleeding. No palpable lymph nodes. PAST HISTORY: COPD Atrial fibrillation with ablation Hypertension CHF Dyslipidemia Diabetes mellitus type II Pulmonary nodule, Right lung Anemia B12 deficiency Osteoarthritis knee Obesity Cholecystectomy ANJEL Cath Ablation PERSONAL/FAMILY HISTORY/SOCIAL HISTORY: and lives alone. Independent of ADL's. No alcohol use. [id number]. Father CAD. . Mother hypertension, diabetes mellitus and CAD. Sister cancer and NEGOTIATOR SALES. Two adult sons. PHYSICAL EXAMINATION: GENERAL: The patient is , lying/sitting in bed in no distress. VITAL SIGNS: Height 5'8, weight 262, BMI 40. Temperature 99.4, pulse 70, respiratory rate 16, blood pressure 154/87. Oxygen saturation 95% on room air. HEENT: Head normocephalic, atraumatic. Eyes: Extraocular muscles are intact. Pupils are equal, round and reactive to light and accommodation. Ears: No lesions. Nose appeared normal. Throat: No exudate or erythema. NECK: Supple. No JVD, no carotid bruit. No lymphadenopathy or thyromegaly. LUNGS: Clear to auscultation. Percussion note normal. Chest symmetrical. HEART: S1, S2, no S3. No murmurs. No cyanosis or clubbing. No ascites. Pulses: Dorsalis pedis and posterior tibial pulses +1 to +2 bilaterally. ABDOMEN: Soft. Nontender. Bowel sounds active. No CVA tenderness. No mass felt. EXTREMITIES: No edema. Full range of motion of all extremities, equal. NEUROLOGIC: No focal deficit. Cranial nerves II through XII are grossly intact. No headache, no double vision or headache. SKIN: Not dry. Intact. Turgor - normal. LYMPHATIC: No palpable lymph nodes/no lymphedema. MUSCULOSKELETAL: Normal joints with no swelling. Muscle tone is normal. Old/present records reviewed: Yes Office records reviewed: Yes EDUCATION CARRIED OUT ABOUT: Gastroenteritis. ALLERGIES: MEDICATIONS: Metformin Nitroglycerin Docusate sodium Albuterol NEB Albuterol HFA Cozaar Lorazepam [place] HCTZ Flecainide Coreg Lipitor Eliquis LABS/EKG'S/X-RAY/ECHO/ABG: U/A 1+ esterase, 2-5 WBC. CPK Troponin within normal limits times three. D-Dimer 545.54. Room air ABG pO2 82, total CO2 26.2. Positive Opiates. CT abdomen and pelvis no acute findings. Hepatic steatosis. [facility]. WBC 9.95, hgb 12.2, hct 38.4, plt count 200. EST 64. Uric acid 6.54. Sodium 134.8, potassium 3.71, Chloride 103.6, Bicarb 25.4, BUN 11.7, Creatinine 0.78, glucose 123. PROGRESS NOTES: See EMR. Case Discussed with Attending Physician: Yes Case Discussed with Family: Yes DIAGNOSES: 1. Acute gastroenteritis 2. Atrial fibrillation 3. Diabetes mellitus type II RECOMMENDATIONS/PLAN: 1. Discharge home today 2. [place] diet for 3-4 days then resume as tolerated 3. Continue home medications 4. No prescriptions 5. Appointment 11-24-21 at 11:[address] Mcleod/[place] ENVIRONMENTAL COMPLIANCE ENGINEER/Gini Ogden APRN TIME SPENT: More than 70 minutes. JONATHAN
== END 2021-11-11 13:30 | disposition home or self-care (01) | DRG 392 ==
LOC: ED 10:54 → MEDSURG A 15:21
PROVIDERS: ADMIT Internal Medicine; ATTEND Internal Medicine
DX: I48.91 Unspecified atrial fibrillation; Z79.01 Long term (current) use of anticoagulants; E11.9 Type 2 diabetes mellitus without complications; Z20.822 Contact with and (suspected) exposure to COVID-19; K52.9 Noninfective gastroenteritis and colitis, unspecified

== ENCOUNTER 2022-07-12 11:39 | Inpatient (IN) ==
--- NOTE | 2022-07-12 12:00 | ED.PDOC ---
General ED Provider: Dr. SARANYA BARBER Chief Complaint: Cough Stated Complaint: Ill since yest with cough, SOA, myalgia, fever. Hx COPD. No known COVID exposure. Time Seen by Provider: 07/12/22 11:59 Mode of Arrival: Wheelchair Information Source: Patient Exam Limitations: No limitations Primary Care Provider: TEZ MCLEOD Nursing and Triage Documentation Reviewed and Agree: Yes Does patient meet sepsis criteria?: No System Inflammatory Response Syndrome: Not Applicable Sepsis Protocol: For patient's 13 years and over: Temp is 96.8 and below OR 101 and greater Pulse >90 BPM Resp >20/minute Acutely Altered Mental Status Are patient's symptoms suggestive of a new infection, such as: -Pneumonia -Skin, Soft Tissue -Endocarditis -UTI -Bone, Joint Infection -Implantable Device -Acute Abdominal Infection -Wound Infection -Meningitis -Blood Stream Catheter Infection -Unknown Respiratory Complaint Exam Shortness of Air Complaint/Exam Onset/Duration: one d Symptoms Are: Still present Timing: Constant Initial Severity: Moderate Current Severity: Moderate Character: Reports Dyspnea at rest and Dyspnea on exertion Aggravating: Reports Movement Alleviating: Reports Bronchodilators Associated Signs and Symptoms: Reports Cough, Wheezing and Fever; Denies Chest pain with cough, Chest pain, Chills, Diaphoresis, Nasal congestion, Dizziness, Calf pain, Calf swelling, Edema, Rapid breathing, Labored breathing or Decreased intake Related History: Reports Similar episode History of Healthcare-Acquired Pneumonia: No Pulmonary Embolism Risk Factors: Reports None Cardiac Risk Factors: Reports CAD Pseudomonas Risk Factors: Reports Chronic Lung Disease Tuberculosis Risk Factors: Reports None Home Oxygen Use: No Recent Stress Test: No Recent Echo/LV Function: No Respiratory Distress: Moderate Stridor Present: No Tracheal Deviation: No Subcutaneous Emphysema: No Accessory Muscle Use: No Retractions: Not Present Diminished Breath Sounds: Yes Prolonged Expiratory Phase: Yes Unable to Speak Full Sentences: No Fatigue: Yes Leg Swelling: No Jose's Sign Present: No Grunting Respirations: No Kussmaul Respirations: No Review of Systems Review Of Systems Constitutional: Reports Malaise and Weakness Eyes: Reports No symptoms Ears, Nose, Mouth, Throat: Reports No symptoms Respiratory: Reports Cough, Short of air and Wheezing Cardiac: Reports No symptoms GI: Reports No symptoms : Reports No symptoms Musculoskeletal: Reports Muscle pain Skin: Reports No symptoms Neurological: Reports No symptoms Endocrine: Reports No symptoms Hematologic/Lymphatic: Reports No symptoms All Other Systems: Reviewed and Negative [facility] Medical History Anemia Anxiety Asthma Atrial fibrillation Cardiomegaly CHF (congestive heart failure) Chronic low back pain Chronic otitis media COPD (chronic obstructive pulmonary disease) Degenerative joint disease of spine Diabetes mellitus, type 2 Dyslipidemia Emphysema of lung GERD (gastroesophageal reflux disease) Hypertension Hypothyroidism Insomnia Lumbar facet arthropathy Obesity (BMI 30-39.9) Osteoarthritis Radiculopathy of lumbar region Sciatica Sensorineural hearing loss (SNHL) of both ears Family History Mother Diabetes Social History Smoking and tobacco status: Former smoker Alcohol intake: never History of recent travel: No Surgical History History of bilateral cataract extraction History of cardiac cath History of cardiac radiofrequency ablation History of section History of cholecystectomy History of colonoscopy History of esophagogastroduodenoscopy (EGD) History of hysterectomy Female Reproductive History Menstrual Hx Hysterectomy: Yes Hx Tubal Ligation: No Physical Exam Physical Exam Appearance: Reports Ill-appearing Ill-appearing: Moderate Pain Distress: Mild Eyes: Reports [place] ENT: Reports Oropharynx normal Neck: Supple Respiratory: Reports Airway patent, Rhonchi and Wheezes Cardiovascular: Reports RRR and Pulses normal GI/: Reports Soft and Nontender Musculoskeletal: Reports Normal strength and Limited ROM Skin: Reports Warm and Dry Neurological: Reports Sensation intact, Motor intact and Alert Psychiatric: Reports Affect appropriate and Mood appropriate Interpretation Radiology Interpretation Radiology Interpretation By: Radiologist Radiology Results: No acute changes Exam Interpreted: Portable CXR Xray Comments: COPD, no pneumonia EKG Interpretation Time of EKG #1: 12:10 Rate: Tachy (118) Rhythm: Sinus Ectopy: PVCs [place]: NL ST Segment: Normal Interpretation: No ischemia Physician Notification Case Discussed Physician Notified: Dr. Mcleod Comments: Admit. Critical Care Note Critical Care Note Total Critical Care Time (mins): 0 Course Course Hematology/Chemistry: 07/13/22 04:44 07/13/22 04:44 Orders, Labs, Meds: Lab Review 07/12/22 07/12/22 07/12/22 11:59 12:11 12:18 WBC 11.03 H RBC 4.16 L Hgb 11.9 L Hct 36.9 L MCV 88.7 MCH 28.6 MCHC 32.2 RDW Coeff of Vel 13.5 Plt Count 207 Immature Gran % (Auto) 0.3 Neut % (Auto) 83.2 H Lymph % (Auto) 9.2 L [place] % (Auto) 6.9 Eos % (Auto) 0.1 Baso % (Auto) 0.3 Neut # (Auto) 9.2 H Lymph # (Auto) 1.0 [place] # (Auto) 0.8 Eos # (Auto) 0.0 Baso # (Auto) 0.0 Immature Gran # (Auto) 0.0 PT INR Puncture Site R brach Base Excess 4.9 H O2 Saturation 98.0 ABG pH 7.53 H* ABG pCO2 33.0 L ABG pO2 92.0 ABG HCO3 27.6 ABG Total CO2 28.6 H Carl Test Y Hemoglobin 1.8 H Oxyhemoglobin 94.6 L Carboxyhemoglobin 2.4 H Total Hemoglobin 12.3 FiO2 % 21.0 Sodium Potassium Chloride Carbon Dioxide Anion Gap BUN Creatinine Estimated GFR (MDRD) BUN/Creatinine Ratio Glucose Calcium Total Bilirubin AST ALT Alkaline Phosphatase Total Protein Albumin Globulin Albumin/Globulin Ratio SARS CoV-2 RNA Rapid MAN Positive H 07/12/22 07/12/22 12:18 12:18 WBC RBC Hgb Hct MCV MCH MCHC RDW Coeff of Vel Plt Count Immature Gran % (Auto) Neut % (Auto) Lymph % (Auto) [place] % (Auto) Eos % (Auto) Baso % (Auto) Neut # (Auto) Lymph # (Auto) [place] # (Auto) Eos # (Auto) Baso # (Auto) Immature Gran # (Auto) PT 11.0 INR 1.06 Puncture Site Base Excess O2 Saturation ABG pH ABG pCO2 ABG pO2 ABG HCO3 ABG Total CO2 Carl Test Hemoglobin Oxyhemoglobin Carboxyhemoglobin Total Hemoglobin FiO2 % Sodium 133.8 L Potassium 3.62 Chloride 100.2 Carbon Dioxide 27.8 Anion Gap 9.42 BUN 6.6 L Creatinine 0.69 Estimated GFR (MDRD) 83.00 BUN/Creatinine Ratio 9.56 Glucose 126.3 H Calcium 8.33 L Total Bilirubin 0.72 AST 22.1 ALT 11.9 Alkaline Phosphatase 129.0 Total Protein 7.02 Albumin 3.49 L Globulin 3.53 Albumin/Globulin Ratio 0.98 SARS CoV-2 RNA Rapid MAN Orders Category Date Time Status ABG DRAW REQUEST Stat CARDIO 07/12/22 12:09 Completed EKG-(ED ONLY) Stat CARDIO 07/12/22 12:03 Completed ABG COOX Stat LAB 07/12/22 12:11 Completed CBC W/ AUTO DIFF Stat LAB 07/12/22 12:18 Completed COMPREHENSIVE METABOLIC PANEL Stat LAB 07/12/22 12:18 Completed SARS COV-2 RNA RAPID MAN Stat LAB 07/12/22 11:59 Completed Hydrocodone Bit/Acetaminophen [Bode 7.5-325] MEDS 07/12/22 14:39 Discontinued 1 tab PO ONCE ONE CHEST, 1V AP ONLY Stat RADS 07/12/22 12:03 Completed Medications Generic Name Dose Route Start Last Admin Trade Name Freq PRN Reason Stop Dose Admin Acetaminophen 650 mg 07/12/22 15:06 Acetaminophen 325 Mg Tablet PO Q4H PRN Headache Hydrocodone Bitart/Acetaminophen 1 tab 07/12/22 18:31 Hydrocodone Bit/Acetaminophen 7.5/325 Mg Tablet PO BID PRN MODERATE PAIN Albuterol Sulfate 2 puff 07/12/22 15:51 Albuterol Sulfate (Ventolin Hfa) 18 Gm 1 Puff With Spacer IH Q6H PRN Wheezing Albuterol/Ipratropium 3 ml 07/12/22 15:06 Ipratropium/Albuterol Vial.Neb NEB RTQ6H PRN Wheezing Apixaban 5 mg 07/12/22 21:00 07/12/22 20:46 Apixaban 5 Mg Tab PO 5 mg BID CINTHIA Administration Atorvastatin Calcium 40 mg 07/12/22 21:00 07/12/22 20:46 Atorvastatin Calcium 20 Mg Tablet PO 40 mg BEDTIME CINTHIA Administration Atropine Sulfate 0.5 mg 07/12/22 15:06 Atropine Sulfate Inj 1 Mg/10 Ml Disp.Syrin IVP ONCE PRN Symptomatic Bradycardia Carvedilol 6.25 mg 07/12/22 21:00 07/12/22 20:46 Carvedilol 6.25 Mg Tablet PO 6.25 mg BID CINTHIA Administration Dexamethasone Sodium Phosphate 6 mg 07/13/22 09:00 Dexamethasone Sod Phos 10 Mg/Ml Inj IVP DAILY CINTHIA Docusate Sodium 100 mg 07/12/22 18:31 Docusate Sodium 100 Mg Capsule PO BID PRN Constipation Flecainide Acetate 100 mg 07/13/22 09:00 Flecainide Acetate 100 Mg Tablet PO BID [facility] Hydrochlorothiazide 6.25 mg 07/13/22 09:00 Hydrochlorothiazide 25 Mg Tablet PO DAILY CINTHIA Azithromycin 500 mg/ Sodium 250 mls @ 125 mls/hr 07/13/22 09:00 Chloride IV 07/16/22 08:59 DAILY CINTHIA CEFTRIAXONE/D5W 1 GM PREMIX 1 gm in 50 mls @ 75 mls/hr 07/12/22 16:00 07/12/22 16:34 Rocephin 1 Gm/50 Ml D5w IV 07/15/22 15:59 75 mls/hr DAILY CINTHIA Administration REMDESIVIR SOLUTION 100 mg/ 270 mls @ 270 mls/hr 07/13/22 12:00 Sodium Chloride IV 07/16/22 13:59 1200 CINTHIA Dextrose/Sodium Chloride 1,000 mls @ 83 mls/hr 07/12/22 18:30 07/12/22 19:58 Dextrose 5%-1/2ns Iv Solution IV 83 mls/hr .Q12H3M CINTHIA Administration Lorazepam 0.5 mg 07/12/22 18:31 Lorazepam 0.5 Mg Tablet PO BID PRN Anxiety Losartan Potassium 25 mg 07/13/22 09:00 Losartan Potassium 25 Mg Tablet PO DAILY [facility] Metformin HCl 500 mg 07/13/22 09:00 Metformin Hcl 500 Mg Tablet PO DAILY [facility] Nitroglycerin 0.4 mg 07/12/22 15:06 Nitroglycerin 0.4 Mg Tab.Subl SL Q5MIN X 3 DOSES PRN Chest Pain Sodium Chloride 1 syr 07/13/22 04:53 0.9% Sodium Chloride 10 Ml Disp.Syrin IVF Q8HR PRN IV PATENCY Discontinued Medications Generic Name Dose Route Start Last Admin Trade Name Freq PRN Reason Stop Dose Admin Hydrocodone Bitart/Acetaminophen 1 tab 07/12/22 14:39 07/12/22 14:59 Hydrocodone Bit/Acetaminophen 7.5/325 Mg Tablet PO 07/12/22 14:40 1 tab ONCE ONE Administration Dexamethasone Sodium Phosphate 6 mg 07/12/22 17:16 07/12/22 17:23 Dexamethasone Sod Phos 10 Mg/Ml Inj IVP 07/12/22 17:17 6 mg ONCE ONE Administration CEFTRIAXONE/D5W 1 GM PREMIX 1 gm in 50 mls @ 75 mls/hr 07/12/22 15:30 Rocephin 1 Gm/50 Ml D5w IV 07/15/22 15:29 DAILY CINTHIA REMDESIVIR SOLUTION 200 mg/ 290 mls @ 145 mls/hr 07/12/22 16:00 07/12/22 17:45 Sodium Chloride IV 07/12/22 17:59 145 mls/hr ONCE ONE Administration Sodium Chloride 1 syr 07/12/22 21:00 07/12/22 20:48 0.9% Sodium Chloride 10 Ml Disp.Syrin IVF Not Given Q8HR CINTHIA Vital Signs: Temp Pulse Resp BP Pulse Ox 07/12/22 11:52 99 F 120 H 23 160/100 H 94 L Discharge Plan Discharge Patient Disposition: ADMITTED INPATIENT Discharge Problem: COVID Did you review [place] MACHINE COMPOSITOR?: Not Applicable ED Provider: SARANYA BARBER Condition: Fair Physician Progress Note: Admit for COVID pos, COPD exac. - orders as suggested by Dr. Mcleod.[]
[2022-07-12 12:19] LABS: ABG O2 HGB 94.6 % (95-100); BEecf 4.9 (-2.0-3.0); COHb 2.4 (0.5-1.5); HCO3 27.6 (21-28); MetHb 1.8 (0-1.5); TCO2 28.6 (19-24); tHb 12.3 g/dl (11.7-17.4)
[2022-07-12 12:22] LABS: ABG PH 7.53 (7.35-7.45)
[2022-07-12 12:23] LABS: BASOPHILS % (AUTO) 0.3 % (0.0-3.0); EOSINOPHILS % (AUTO) 0.1 % (0.0-7.0); HEMATOCRIT 36.9 % (37.0-47.0); HEMOGLOBIN 11.9 g/dl (12.0-16.0); IMMATURE GRANULOCYTE % (AUTO) 0.3 % (0.0-5.0); LYMPHOCYTES % (AUTO) 9.2 (10.0-50.0); MEAN CORPUSCULAR HEMOGLOBIN 28.6 pg (27.0-31.0); MEAN CORPUSCULAR HGB CONC 32.2 (31.8-35.4); MEAN CORPUSCULAR VOLUME 88.7 fl (81.0-99.0); MONOCYTES # (AUTO) 0.8 K/uL (0.4-2.0); MONOCYTES % (AUTO) 6.9 (0-10); NEUTROPHILS # (AUTO) 9.2 K/ul (2.0-6.9); NEUTROPHILS % (AUTO) 83.2 % (42.2-75.2); PLATELET COUNT 207 10^3/uL (140-440); RDW COEFFICIENT OF VARIATION 13.5 % (11.6-14.8); RED BLOOD COUNT 4.16 10^6/ul (4.20-5.40); WHITE BLOOD COUNT 11.03 K/ul (4.6-10.2)
[2022-07-12 12:41] LABS: ALANINE AMINOTRANSFERASE 11.9 U/L (0-35); ALBUMIN 3.49 g/dL (3.5-5.0); ASPARTATE AMINO TRANSFERASE 22.1 U/L (14-36); BILIRUBIN,TOTAL 0.72 mg/dL (0.2-1.3); BLOOD UREA NITROGEN 6.6 mg/dL (7-17); CALCIUM 8.33 mg/dL (8.4-10.2); CARBON DIOXIDE 27.8 mmol/L (22-30.0); CHLORIDE 100.2 mmol/L (98-107); CREATININE 0.69 mg/dL (0.60-1.30); GLUCOSE 126.3 mg/dL (74-106); POTASSIUM 3.62 mmol/L (3.5-5.1); SODIUM 133.8 mmol/L (134.5-145); TOTAL PROTEIN 7.02 g/dL (6.3-8.2)
--- NOTE | 2022-07-12 13:58 | DI ---
EXAM: CHEST RADIOGRAPH TECHNIQUE: Single frontal chest radiograph. HISTORY: Cough. COMPARISON: 11/10/2021. FINDINGS: Calcified granulomas bilaterally. Otherwise clear lungs. The heart size is normal. There is no pleural effusion. There is no pneumothorax. IMPRESSION: 1. Previous granulomatous disease. 2. Otherwise unremarkable chest radiograph.
[2022-07-12] MEDS ORDERED: NORCO 7.5-325 PO ONE (14:39)
[2022-07-12] MEDS ORDERED: TYLENOL PO PRN (15:06)
[2022-07-12] MEDS ORDERED: ATROPINE SULFATE PFS IVP PRN (15:06)
[2022-07-12] MEDS ORDERED: NITROSTAT SL PRN ×2 (15:06→18:34)
[2022-07-12] MEDS ORDERED: DUONEB NEB PRN (15:06)
[2022-07-12 15:29] LABS: BASOPHILS % (AUTO) 0.2 % (0.0-3.0); EOSINOPHILS % (AUTO) 0.1 % (0.0-7.0); HEMATOCRIT 37.9 % (37.0-47.0); IMMATURE GRANULOCYTE % (AUTO) 0.3 % (0.0-5.0); LYMPHOCYTES # (AUTO) 1.3 K/uL (0.60-3.4); LYMPHOCYTES % (AUTO) 12.9 (10.0-50.0); MEAN CORPUSCULAR HEMOGLOBIN 28.6 pg (27.0-31.0); MEAN CORPUSCULAR HGB CONC 31.7 (31.8-35.4); MEAN CORPUSCULAR VOLUME 90.2 fl (81.0-99.0); MONOCYTES # (AUTO) 0.8 K/uL (0.4-2.0); MONOCYTES % (AUTO) 7.8 (0-10); NEUTROPHILS # (AUTO) 8.2 K/ul (2.0-6.9); NEUTROPHILS % (AUTO) 78.7 % (42.2-75.2); PLATELET COUNT 205 10^3/uL (140-440); RDW COEFFICIENT OF VARIATION 13.7 % (11.6-14.8); WHITE BLOOD COUNT 10.39 K/ul (4.6-10.2)
[2022-07-12] MEDS ORDERED: ROCEPHIN 1 GM/50 ML D5W 1 GM/50 ML BAG IV SCH (15:30)
[2022-07-12 15:42] LABS: ALANINE AMINOTRANSFERASE 11.1 U/L (0-35); ALKALINE PHOSPHATASE 132.1 U/L (53-141); ASPARTATE AMINO TRANSFERASE 26.7 U/L (14-36); BILIRUBIN,TOTAL 0.79 mg/dL (0.2-1.3); BLOOD UREA NITROGEN 6.7 mg/dL (7-17); CALCIUM 8.56 mg/dL (8.4-10.2); CARBON DIOXIDE 32.5 mmol/L (22-30.0); CHLORIDE 98.8 mmol/L (98-107); CREATINE KINASE 27.8 U/L (30-135); CREATININE 0.84 mg/dL (0.60-1.30); GLUCOSE 105.4 mg/dL (74-106); POTASSIUM 3.74 mmol/L (3.5-5.1); SODIUM 136.6 mmol/L (134.5-145); TOTAL PROTEIN 7.23 g/dL (6.3-8.2)
[2022-07-12] MEDS ORDERED: VENTOLIN HFA (PER PUFF-WITH SPACER) IH PRN (15:51)
[2022-07-12 15:53] LABS: TROPONIN I < 0.012 ng/ml (0.0000-0.120)
[2022-07-12] MEDS ORDERED: VEKLURY 200 MG in SODIUM CHLORIDE 250 ML IV ONE (16:00)
[2022-07-12] MEDS: ROCEPHIN 1 GM/50 ML D5W 1 GM/50 ML BAG IV SCH (16:34)
[2022-07-12] MEDS ORDERED: DECADRON IVP ONE (17:16)
[2022-07-12 17:50] VITALS: BMI 37.4
[2022-07-12] MEDS ORDERED: ATIVAN PO PRN (18:31)
[2022-07-12] MEDS ORDERED: COLACE PO PRN (18:31)
[2022-07-12] MEDS: DEXTROSE 5%-1/2NS IV SOLUTION 1,000 ML IV SCH (19:58)
[2022-07-12] MEDS: ELIQUIS PO SCH (20:46)
[2022-07-12] MEDS: LIPITOR PO SCH (20:46)
[2022-07-12] MEDS: COREG PO SCH (20:46)
[2022-07-12 23:27] LABS: BILIRUBIN,URINE Negative (NEGATIVE); CLARITY,URINE Clear (CLEAR); COLOR,URINE Yellow (YELLOW); GLUCOSE, URINE (UA) Negative (NEGATIVE); KETONES,URINE Negative (NEGATIVE); LEUKOCYTE ESTERASE ,URINE Trace (NEGATIVE); NITRITE,URINE Negative (NEGATIVE); PH,URINE 5.5 (5-9); PROTEIN,URINE Negative (NEGATIVE); URINE, BLOOD Trace-intact (NEGATIVE)
[2022-07-12 23:37] LABS: SQUAMOUS EPITHELIAL CELL,UR 0-2 (0-5); URINE RBC, MICROSCOPIC 0-2 (0-2); URINE WBC, MICROSCOPIC 0-2 (0-2)
[2022-07-12 23:39] LABS: CREATINE KINASE 36.4 U/L (30-135)
[2022-07-12 23:52] LABS: TROPONIN I < 0.012 ng/ml (0.0000-0.120)
[2022-07-13 05:03] LABS: BASOPHILS % (AUTO) 0.1 % (0.0-3.0); EOSINOPHILS % (AUTO) 0.1 % (0.0-7.0); HEMATOCRIT 38.1 % (37.0-47.0); HEMOGLOBIN 11.9 g/dl (12.0-16.0); IMMATURE GRANULOCYTE % (AUTO) 0.4 % (0.0-5.0); LYMPHOCYTES # (AUTO) 0.7 K/uL (0.60-3.4); LYMPHOCYTES % (AUTO) 10.8 (10.0-50.0); MEAN CORPUSCULAR HEMOGLOBIN 28.5 pg (27.0-31.0); MEAN CORPUSCULAR HGB CONC 31.2 (31.8-35.4); MEAN CORPUSCULAR VOLUME 91.4 fl (81.0-99.0); MONOCYTES # (AUTO) 0.2 K/uL (0.4-2.0); MONOCYTES % (AUTO) 2.7 (0-10); NEUTROPHILS # (AUTO) 5.7 K/ul (2.0-6.9); NEUTROPHILS % (AUTO) 85.9 % (42.2-75.2); PLATELET COUNT 191 10^3/uL (140-440); RDW COEFFICIENT OF VARIATION 13.6 % (11.6-14.8); RED BLOOD COUNT 4.17 10^6/ul (4.20-5.40); WHITE BLOOD COUNT 6.69 K/ul (4.6-10.2)
[2022-07-13 05:14] LABS: PROTHROMBIN TIME 11.3 SEC (9.3-11.0)
[2022-07-13 05:17] LABS: ALANINE AMINOTRANSFERASE 10.6 U/L (0-35); ALBUMIN 3.37 g/dL (3.5-5.0); ALKALINE PHOSPHATASE 116.5 U/L (53-141); ASPARTATE AMINO TRANSFERASE 18.7 U/L (14-36); BILIRUBIN,TOTAL 0.4 mg/dL (0.2-1.3); BLOOD UREA NITROGEN 8.9 mg/dL (7-17); CALCIUM 8.47 mg/dL (8.4-10.2); CARBON DIOXIDE 28.6 mmol/L (22-30.0); CHLORIDE 104.1 mmol/L (98-107); CREATININE 0.57 mg/dL (0.60-1.30); GLUCOSE 176.5 mg/dL (74-106); POTASSIUM 4.09 mmol/L (3.5-5.1); TOTAL PROTEIN 6.66 g/dL (6.3-8.2)
[2022-07-13] MEDS: ROCEPHIN 1 GM/50 ML D5W 1 GM/50 ML BAG IV SCH (08:53)
[2022-07-13] MEDS: DEXTROSE 5%-1/2NS IV SOLUTION 1,000 ML IV SCH (08:56)
[2022-07-13] MEDS: VITAMIN D PO SCH (08:57)
[2022-07-13] MEDS: PEPCID PO SCH ×2 (08:57→16:44)
[2022-07-13] MEDS: TAMBOCOR PO SCH ×2 (08:58→20:11)
[2022-07-13] MEDS: HYDROCHLOROTHIAZIDE PO SCH (08:58)
[2022-07-13] MEDS: DECADRON IVP SCH (08:58)
[2022-07-13] MEDS: COREG PO SCH ×2 (08:59→18:31)
[2022-07-13] MEDS: NORCO 7.5-325 PO PRN ×2 (08:59→20:11)
[2022-07-13] MEDS: COZAAR PO SCH (08:59)
[2022-07-13] MEDS: SYMBICORT 160-4.5 MCG INHALER IH SCH ×2 (09:00→20:12)
[2022-07-13] MEDS ORDERED: GLUCOPHAGE PO SCH (09:00)
[2022-07-13] MEDS: ELIQUIS PO SCH ×2 (09:00→20:11)
--- NOTE | 2022-07-13 09:16 | PCM.PROG ---
Attending Provider: ATTENDING PROVIDER: Dr. TEZ FREEMAN This patient is seen with Melissa Ann, Nurse Practitioner. DATE OF SERVICE: 07/13/22 SUBJECTIVE: This 71 year old /WHITE F was hospitalized 07/12/22. Has been afebrile. Still coughing. Complaining of shortness of breath with exertion. CT chest is pending. Achiness has improved. REVIEW OF SYSTEMS: CONSTITUTIONAL: No night sweats. No fatigue, malaise, lethargy. No fever or chills. Weakness. HEENT: Eyes: No visual changes. No eye pain. No eye discharge. ENT: No runny nose. No epistaxis. No sinus pain. No odynophagia. No congestion. RESPIRATORY: Cough, no congestion. No hemoptysis. No shortness of breath. CARDIOVASCULAR: No angina symptoms. No CHF symptoms. No atypical chest pain for CAD. No palpitations. No orthopnea.. GASTROINTESTINAL: No abdominal pain. No nausea or vomiting. No diarrhea or constipation. No hematemesis. No hematochezia. GENITOURINARY: No urgency. No frequency. No dysuria. No hematuria. No obstructive symptoms. No discharge. No pain. No significant abnormal bleeding. MUSCULOSKELETAL: No musculoskeletal pain; no joint swelling. NEUROLOGICAL: Awake, alert, oriented to time, place and person. No headache. No neck pain. No syncope. No seizures. No dizziness. PSYCHIATRIC: Not anxious. No depression. No suicidal thoughts. No homicidal thoughts. SKIN: No rash. No lesions. No wounds. ENDOCRINE: No unexplained weight loss. No weight gain. HEMATOLOGIC/LYMPHATIC: No anemia. No purpura. No petechiae. No prolonged or excessive bleeding. No palpable lymph nodes. PHYSICAL EXAMINATION: GENERAL: The patient is awake, alert and oriented, lying in bed in no distress. VITAL SIGNS: Temperature 97.7 F, Pulse 66, Respiratory Rate 19, BP 126/61, Pulse Ox 98% HEENT: Head normocephalic, atraumatic. Eyes: Extraocular muscles are intact. Pupils are equal, round and reactive to light and accommodation. Ears: No lesions. Nose appeared normal. Throat: No exudate or erythema. NECK: Supple. No JVD, no carotid bruit. No lymphadenopathy or thyromegaly. LUNGS: Diminished breath sounds. Clear to auscultation. Percussion note normal. Chest symmetrical. HEART: S1, S2, no S3. No murmurs. No cyanosis or clubbing. No ascites. Pulses: Dorsalis pedis and posterior tibial pulses +1 to +2 both sides. ABDOMEN: Soft. Non-tender. Bowel sounds active. No CVA tenderness. No mass felt. EXTREMITIES: No edema. Full range of motion of all extremities, equal. NEUROLOGIC: No focal deficit. Cranial nerves II through XII are grossly intact. No headache. No double vision. SKIN: Not dry. Intact. Turgor-normal. LYMPHATIC: No palpable lymph nodes/no lymphedema. MUSCULOSKELETAL: Normal joints with no swelling. Muscle tone is normal. LAB REVIEW: 07/13/22 04:44 07/13/22 04:44 07/13/22 04:44: PT 11.3 H, INR 1.09 07/13/22 04:44: Sodium 136.0, Potassium 4.09, Chloride 104.1, Carbon Dioxide 28.6, Anion Gap 7.39, BUN 8.9, Creatinine 0.57 L, Estimated GFR (MDRD) 104.00, BUN/Creatinine Ratio 15.61, Glucose 176.5 H D, Calcium 8.47, Total Bilirubin 0.40, AST 18.7, ALT 10.6, Alkaline Phosphatase 116.5, Total Protein 6.66, Albumin 3.37 L, Globulin 3.29, Albumin/Globulin Ratio 1.02 07/13/22 04:44: WBC 6.69, RBC 4.17 L, Hgb 11.9 L, Hct 38.1, MCV 91.4, MCH 28.5, MCHC 31.2 L, RDW Coeff of Vel 13.6, Plt Count 191, Immature Gran % (Auto) 0.4, Neut % (Auto) 85.9 H, Lymph % (Auto) 10.8, Wise % (Auto) 2.7, Eos % (Auto) 0.1, Baso % (Auto) 0.1, Neut # (Auto) 5.7, Lymph # (Auto) 0.7, Wise # (Auto) 0.2 L, Eos # (Auto) 0.0, Baso # (Auto) 0.0, Immature Gran # (Auto) 0.0 07/12/22 23:20: Urine Color Yellow, Urine Clarity Clear, Urine pH 5.5, Ur Specific [place] 1.010, Urine Protein Negative, Urine Glucose (UA) Negative, Urine Ketones Negative, Urine Blood Trace-intact H, Urine Nitrite Negative, Urine Bilirubin Negative, Urine Urobilinogen 1.0 H, Ur Leukocyte Esterase Trace H, Urine Microscopic RBC 0-2, Urine Microscopic WBC 0-2, Ur Squamous Epith Cells 0-2 07/12/22 23:20: Total Creatine Kinase 36.4, Troponin I < 0.012 07/12/22 15:18: Sodium 136.6, Potassium 3.74, Chloride 98.8, Carbon Dioxide 32.5 H, Anion Gap 9.04, BUN 6.7 L, Creatinine 0.84, Estimated GFR (MDRD) 66.00, BUN/Creatinine Ratio 7.97, Glucose 105.4, Calcium 8.56, Total Bilirubin 0.79, AST 26.7, ALT 11.1, Alkaline Phosphatase 132.1, Total Creatine Kinase 27.8 L, Troponin I < 0.012, Total Protein 7.23, Albumin 3.70, Globulin 3.53, Albumin/Globulin Ratio 1.04 07/12/22 15:18: WBC 10.39 H, RBC 4.20, Hgb 12.0, Hct 37.9, MCV 90.2, MCH 28.6, MCHC 31.7 L, RDW Coeff of Vel 13.7, Plt Count 205, Immature Gran % (Auto) 0.3, Neut % (Auto) 78.7 H, Lymph % (Auto) 12.9, Wise % (Auto) 7.8, Eos % (Auto) 0.1, Baso % (Auto) 0.2, Neut # (Auto) 8.2 H, Lymph # (Auto) 1.3, Wise # (Auto) 0.8, Eos # (Auto) 0.0, Baso # (Auto) 0.0, Immature Gran # (Auto) 0.0 07/12/22 12:18: PT 11.0, INR 1.06 07/12/22 12:18: Sodium 133.8 L, Potassium 3.62, Chloride 100.2, Carbon Dioxide 27.8, Anion Gap 9.42, BUN 6.6 L, Creatinine 0.69, Estimated GFR (MDRD) 83.00, BUN/Creatinine Ratio 9.56, Glucose 126.3 H, Calcium 8.33 L, Total Bilirubin 0.72, AST 22.1, ALT 11.9, Alkaline Phosphatase 129.0, Total Protein 7.02, Albumin 3.49 L, Globulin 3.53, Albumin/Globulin Ratio 0.98 07/12/22 12:18: WBC 11.03 H, RBC 4.16 L, Hgb 11.9 L, Hct 36.9 L, MCV 88.7, MCH 28.6, MCHC 32.2, RDW Coeff of Vel 13.5, Plt Count 207, Immature Gran % (Auto) 0.3, Neut % (Auto) 83.2 H, Lymph % (Auto) 9.2 L, Wise % (Auto) 6.9, Eos % (Auto) 0.1, Baso % (Auto) 0.3, Neut # (Auto) 9.2 H, Lymph # (Auto) 1.0, Wise # (Auto) 0.8, Eos # (Auto) 0.0, Baso # (Auto) 0.0, Immature Gran # (Auto) 0.0 07/12/22 12:11: Puncture Site R brach, Base Excess 4.9 H, O2 Saturation 98.0, ABG pH 7.53 H*, ABG pCO2 33.0 L, ABG pO2 92.0, ABG HCO3 27.6, ABG Total CO2 28.6 H, Carl Test Y, Hemoglobin 1.8 H, Oxyhemoglobin 94.6 L, Carboxyhemoglobin 2.4 H , Total Hemoglobin 12.3, FiO2 % 21.0 07/12/22 11:59: SARS CoV-2 RNA Rapid MAN Positive H ASSESSMENT: Please see below. 1. COVID 19 2. Acute pneumonitis 3. Dehydration 4. Generalized weakness 5. Diabetes Mellitus type II 6. Atrial fibrillation 7. COPD PLAN: 1. Continue IV antibiotics and Remdesivir 2. Symbicort inhaler two puffs BID 3. Vitamin D 5000 units daily 4. Pepcid 20mg BID Plan and coordination of the patient's care discussed in the presence of Char Filter Tank Tender Head and nurse. SCRIBED BY: FRANCISCO TRENT Haircutter scribed while in presence of service performed by Dr. Freeman/Melissa Ann APRN on 07/13/22 ([id number])
[2022-07-13] MEDS: ZITHROMAX 500 MG in SODIUM CHLORIDE 250 ML IV SCH (09:51)
--- NOTE | 2022-07-13 10:01 | CT ---
EXAM: CT scan of the chest with and without contrast HISTORY: shortness of breath, COVID-19 TECHNIQUE: Imaging of the chest was performed before and after the intravenous administration of con trast. 5 mm thin axial images and coronal and sagittal reconstructions were obtained. FINDINGS: There is no consolidation. No definite infiltrates are seen. Emphysematous changes are s een within the upper lungs. The heart is normal size. No mediastinal masses are seen. There is mil d atherosclerotic calcification of the thoracic aorta. There has been previous cholecystectomy. No lytic or blastic lesions are seen within the osseous structures. IMPRESSION: No acute abnormalities are seen within the thorax. Pulmonary emphysema. All CT scans are performed using dose optimization techniques as appropriate to the performed exam an d include at least one of the following: Automated exposure control, adjustment of the mA and/or kV according t o size, and the use of iterative reconstruction technique.
[2022-07-13] MEDS: VEKLURY 100 MG in SODIUM CHLORIDE 250 ML IV SCH (12:00)
--- NOTE | 2022-07-13 13:41 | PN ---
DATE OF SERVICE: 07/12/22 SUBJECTIVE: The patient was seen and examined in the emergency room. The patient came in with some mild could and congestion, poor appetite and short of breath with weakness. The patient was COVID 19 positive. She will be hospitalized with Remdesivir IV along with Rocephin and IV fluids. Condition seems to be stable. Cardiovascular stable. The patient has atrial fibrillation with rapid ventricular response on coming to the ER but when I saw her the telemetry showed the rate of 80-90 per minute. No evidence of CHF or coronary insufficiency. The patient's saturation was 97% on room air. Case discussed with ER attending and the patient is going to be hospitalized. TIME SPENT: More than 30 minutes. Plan and coordination of the patient's care discussed in the presence of nurse. JONATHAN
[2022-07-13] MEDS: LIPITOR PO SCH (20:11)
[2022-07-14] MEDS: DEXTROSE 5%-1/2NS IV SOLUTION 1,000 ML IV SCH ×2 (02:06→05:50)
[2022-07-14 05:07] LABS: BASOPHILS % (AUTO) 0.2 % (0.0-3.0); HEMATOCRIT 37.3 % (37.0-47.0); HEMOGLOBIN 11.7 g/dl (12.0-16.0); IMMATURE GRANULOCYTE # (AUTO) 0.1 (0.0-1.0); IMMATURE GRANULOCYTE % (AUTO) 0.6 % (0.0-5.0); LYMPHOCYTES # (AUTO) 1.1 K/uL (0.60-3.4); LYMPHOCYTES % (AUTO) 9.4 (10.0-50.0); MEAN CORPUSCULAR HEMOGLOBIN 28.7 pg (27.0-31.0); MEAN CORPUSCULAR HGB CONC 31.4 (31.8-35.4); MEAN CORPUSCULAR VOLUME 91.6 fl (81.0-99.0); MONOCYTES # (AUTO) 0.6 K/uL (0.4-2.0); MONOCYTES % (AUTO) 5.4 (0-10); NEUTROPHILS # (AUTO) 9.9 K/ul (2.0-6.9); NEUTROPHILS % (AUTO) 84.4 % (42.2-75.2); PLATELET COUNT 200 10^3/uL (140-440); RDW COEFFICIENT OF VARIATION 13.7 % (11.6-14.8); RED BLOOD COUNT 4.07 10^6/ul (4.20-5.40); WHITE BLOOD COUNT 11.76 K/ul (4.6-10.2)
[2022-07-14 05:19] LABS: PROTHROMBIN TIME 11.3 SEC (9.3-11.0)
[2022-07-14 05:20] LABS: ALANINE AMINOTRANSFERASE 13.4 U/L (0-35); ALBUMIN 3.3 g/dL (3.5-5.0); ALKALINE PHOSPHATASE 131.5 U/L (53-141); ASPARTATE AMINO TRANSFERASE 23.3 U/L (14-36); BILIRUBIN,TOTAL 0.25 mg/dL (0.2-1.3); BLOOD UREA NITROGEN 12.6 mg/dL (7-17); CALCIUM 8.51 mg/dL (8.4-10.2); CARBON DIOXIDE 30.8 mmol/L (22-30.0); CHLORIDE 101.6 mmol/L (98-107); CREATININE 0.73 mg/dL (0.60-1.30); GLUCOSE 164.1 mg/dL (74-106); POTASSIUM 3.77 mmol/L (3.5-5.1); SODIUM 139.2 mmol/L (134.5-145); TOTAL PROTEIN 6.58 g/dL (6.3-8.2)
[2022-07-14] MEDS: PEPCID PO SCH ×2 (05:46→17:24)
[2022-07-14] MEDS: HYDROCHLOROTHIAZIDE PO SCH (08:42)
[2022-07-14] MEDS: ROCEPHIN 1 GM/50 ML D5W 1 GM/50 ML BAG IV SCH (08:42)
[2022-07-14] MEDS: COZAAR PO SCH (08:43)
[2022-07-14] MEDS: TAMBOCOR PO SCH ×2 (08:43→20:27)
[2022-07-14] MEDS: DECADRON IVP SCH (08:43)
[2022-07-14] MEDS: COREG PO SCH ×2 (08:43→17:23)
[2022-07-14] MEDS: VITAMIN D PO SCH (08:43)
[2022-07-14] MEDS: NORCO 7.5-325 PO PRN ×2 (08:44→20:27)
[2022-07-14] MEDS: ELIQUIS PO SCH ×2 (08:45→20:27)
[2022-07-14] MEDS: GLUCOPHAGE PO SCH (09:00)
[2022-07-14] MEDS: SYMBICORT 160-4.5 MCG INHALER IH SCH ×2 (09:14→20:26)
[2022-07-14] MEDS: ZITHROMAX 500 MG in SODIUM CHLORIDE 250 ML IV SCH (10:17)
[2022-07-14] MEDS: VEKLURY 100 MG in SODIUM CHLORIDE 250 ML IV SCH (13:06)
--- NOTE | 2022-07-14 13:08 | PN ---
DATE OF SERVICE: 07/13/22 SUBJECTIVE: The patient was seen and examined today with the Nurse Practitioner. The patient's condition has improved. Her hydration status has improved. Skin turgor is a lot better. PHYSICAL EXAMINATION: HEENT: Head normocephalic, atraumatic. Eyes: Extraocular muscles are intact. Pupils are equal, round and reactive to light and accommodation. Ears: No lesions. Nose appeared normal. Throat: No exudate or erythema. NECK: Supple. No JVD, no carotid bruit. No lymphadenopathy or thyromegaly. LUNGS: Decreased breath sounds but good air entry. Percussion note normal. Chest symmetrical. HEART: S1, S2, no S3. No murmurs. No cyanosis or clubbing. No ascites. Pulses: Dorsalis pedis and posterior tibial pulses +1 to +2 bilaterally. ABDOMEN: Soft. Nontender. Bowel sounds active. No CVA tenderness. No mass felt. EXTREMITIES: No edema. Full range of motion of all extremities, equal. NEUROLOGIC: No focal deficit. Cranial nerves II through XII are grossly intact. No headache. No double vision. SKIN: Not dry. Intact. Turgor - normal. LYMPHATIC: No palpable lymph nodes/no lymphedema. MUSCULOSKELETAL: Normal joints with no swelling. Muscle tone is normal. ASSESSMENT: 1. Bronchitis symptoms seem to have been getting under control. PLAN: 1. Continue steroids and antibiotics and Remdesivir 2. She is afebrile and feeling better, eating better. TIME SPENT: More than 30 minutes. Plan and coordination of the patient's care discussed in the presence of nurse. JONATHAN
[2022-07-14] MEDS: LIPITOR PO SCH (20:27)
[2022-07-14] MEDS: HUMULIN R SUBCUT PRN (20:34)
[2022-07-15] MEDS: DEXTROSE 5%-1/2NS IV SOLUTION 1,000 ML IV SCH ×2 (01:37→18:32)
[2022-07-15 05:04] LABS: BASOPHILS % (AUTO) 0.1 % (0.0-3.0); EOSINOPHILS % (AUTO) 0.1 % (0.0-7.0); HEMATOCRIT 36.1 % (37.0-47.0); HEMOGLOBIN 11.1 g/dl (12.0-16.0); IMMATURE GRANULOCYTE % (AUTO) 0.4 % (0.0-5.0); LYMPHOCYTES # (AUTO) 1.3 K/uL (0.60-3.4); LYMPHOCYTES % (AUTO) 13.3 (10.0-50.0); MEAN CORPUSCULAR HEMOGLOBIN 28.2 pg (27.0-31.0); MEAN CORPUSCULAR HGB CONC 30.7 (31.8-35.4); MEAN CORPUSCULAR VOLUME 91.9 fl (81.0-99.0); MONOCYTES # (AUTO) 0.6 K/uL (0.4-2.0); MONOCYTES % (AUTO) 6.4 (0-10); NEUTROPHILS # (AUTO) 7.8 K/ul (2.0-6.9); NEUTROPHILS % (AUTO) 79.7 % (42.2-75.2); PLATELET COUNT 199 10^3/uL (140-440); RDW COEFFICIENT OF VARIATION 13.7 % (11.6-14.8); RED BLOOD COUNT 3.93 10^6/ul (4.20-5.40); WHITE BLOOD COUNT 9.76 K/ul (4.6-10.2)
[2022-07-15 05:15] LABS: PROTHROMBIN TIME 11.7 SEC (9.3-11.0)
[2022-07-15 05:18] LABS: ALBUMIN 3.04 g/dL (3.5-5.0); ALKALINE PHOSPHATASE 113.5 U/L (53-141); ASPARTATE AMINO TRANSFERASE 27.5 U/L (14-36); BILIRUBIN,TOTAL 0.23 mg/dL (0.2-1.3); BLOOD UREA NITROGEN 16.3 mg/dL (7-17); CALCIUM 8.17 mg/dL (8.4-10.2); CARBON DIOXIDE 34.2 mmol/L (22-30.0); CHLORIDE 101.1 mmol/L (98-107); CREATININE 0.67 mg/dL (0.60-1.30); GLUCOSE 123.5 mg/dL (74-106); POTASSIUM 3.88 mmol/L (3.5-5.1); TOTAL PROTEIN 6.11 g/dL (6.3-8.2)
[2022-07-15] MEDS: PEPCID PO SCH ×2 (05:41→16:58)
[2022-07-15] MEDS ORDERED: COZAAR PO ONE (08:45)
--- NOTE | 2022-07-15 09:14 | PCM.PROG ---
Attending Provider: ATTENDING PROVIDER: Dr. TEZ FREEMAN This patient is seen with Melissa Ann, Nurse Practitioner. DATE OF SERVICE: 07/15/22 SUBJECTIVE: This 71 year old /WHITE F was hospitalized 07/12/22. Has been eating well. Feeling much better. Would like to go home tomorrow. Will plan on discharge then. Labs are stable. Respiratory status is stable. Cough improved. REVIEW OF SYSTEMS: CONSTITUTIONAL: No night sweats. Fatigue. No fever or chills. HEENT: Eyes: No visual changes. No eye pain. No eye discharge. ENT: No runny nose. No epistaxis. No sinus pain. No odynophagia. No congestion. RESPIRATORY: Cough, no congestion. No hemoptysis. No shortness of breath. CARDIOVASCULAR: No angina symptoms. No CHF symptoms. No atypical chest pain for CAD. No palpitations. No orthopnea.. GASTROINTESTINAL: No abdominal pain. No nausea or vomiting. No diarrhea or cons tipation. No hematemesis. No hematochezia. GENITOURINARY: No urgency. No frequency. No dysuria. No hematuria. No obstructive symptoms. No discharge. No pain. No significant abnormal bleeding. MUSCULOSKELETAL: No musculoskeletal pain; no joint swelling. NEUROLOGICAL: Awake, alert, oriented to time, place and person. No headache. No neck pain. No syncope. No seizures. No dizziness. PSYCHIATRIC: Not anxious. No depression. No suicidal thoughts. No homicidal thoughts. SKIN: No rash. No lesions. No wounds. ENDOCRINE: No unexplained weight loss. No weight gain. HEMATOLOGIC/LYMPHATIC: No anemia. No purpura. No petechiae. No prolonged or excessive bleeding. No palpable lymph nodes. PHYSICAL EXAMINATION: GENERAL: The patient is awake, alert and oriented, lying in bed in no distress. VITAL SIGNS: Temperature 97.6 F, Pulse 58, Respiratory Rate 16, BP 151/85, Pulse Ox 96% HEENT: Head normocephalic, atraumatic. Eyes: Extraocular muscles are intact. Pupils are equal, round and reactive to light and accommodation. Ears: No lesions. Nose appeared normal. Throat: No exudate or erythema. NECK: Supple. No JVD, no carotid bruit. No lymphadenopathy or thyromegaly. LUNGS: Diminished breath sounds. Clear to auscultation. Percussion note normal. Chest symmetrical. HEART: S1, S2, no S3. No murmurs. No cyanosis or clubbing. No ascites. Pulses: Dorsalis pedis and posterior tibial pulses +1 to +2 both sides. ABDOMEN: Soft. Non-tender. Bowel sounds active. No CVA tenderness. No mass felt. EXTREMITIES: No edema. Full range of motion of all extremities, equal. NEUROLOGIC: No focal deficit. Cranial nerves II through XII are grossly intact. No headache. No double vision. SKIN: Not dry. Intact. Turgor-normal. LYMPHATIC: No palpable lymph nodes/no lymphedema. MUSCULOSKELETAL: Normal joints with no swelling. Muscle tone is normal. LAB REVIEW: 07/15/22 04:41 07/15/22 04:41 07/15/22 04:41: PT 11.7 H, INR 1.14 07/15/22 04:41: Sodium 137.0, Potassium 3.88, Chloride 101.1, Carbon Dioxide 34.2 H, Anion Gap 5.58, BUN 16.3, Creatinine 0.67, Estimated GFR (MDRD) 86.00, BUN/Creatinine Ratio 24.32, Glucose 123.5 H, Calcium 8.17 L, Total Bilirubin 0.23, AST 27.5, ALT 12.0, Alkaline Phosphatase 113.5, Total Protein 6.11 L, Albumin 3.04 L, Globulin 3.07, Albumin/Globulin Ratio 0.99 07/15/22 04:41: WBC 9.76, RBC 3.93 L, Hgb 11.1 L, Hct 36.1 L, MCV 91.9, MCH 28.2, MCHC 30.7 L, RDW Coeff of Vel 13.7, Plt Count 199, Immature Gran % (Auto) 0.4, Neut % (Auto) 79.7 H, Lymph % (Auto) 13.3, [place] % (Auto) 6.4, Eos % (Auto) 0.1, Baso % (Auto) 0.1, Neut # (Auto) 7.8 H, Lymph # (Auto) 1.3, [place] # (Auto) 0.6, Eos # (Auto) 0.0, Baso # (Auto) 0.0, Immature Gran # (Auto) 0.0 ASSESSMENT: Please see below. 1. Acute COVID 19 2. Acute pneumonitis 3. Atrial fibrillation PLAN: 1. Stop IV fluids 2. Anticipate discharge home tomorrow after last dose of Remdesivir 3. Prednisone 20mg BID for 3 days then daily for 4 days starting tomorrow 4. Send home with Symbicort inhaler Plan and coordination of the patient's care discussed in the presence of Strip Winder and nurse. SCRIBED BY: FRANCISCO TRENT Shoemaking Finisher scribed while in presence of service performed by Dr. Freeman/Melissa Ann APRN on 07/15/22 ([id number])
[2022-07-15] MEDS: VITAMIN D PO SCH (09:42)
[2022-07-15] MEDS: TAMBOCOR PO SCH ×2 (09:42→20:14)
[2022-07-15] MEDS: ELIQUIS PO SCH ×2 (09:44→20:15)
[2022-07-15] MEDS: HYDROCHLOROTHIAZIDE PO SCH (09:44)
[2022-07-15] MEDS: COREG PO SCH ×2 (09:45→16:58)
[2022-07-15] MEDS: COZAAR PO SCH (09:49)
[2022-07-15] MEDS: DECADRON IVP SCH (09:49)
[2022-07-15] MEDS: SYMBICORT 160-4.5 MCG INHALER IH SCH ×2 (09:50→20:15)
[2022-07-15] MEDS: ROCEPHIN 1 GM/50 ML D5W 1 GM/50 ML BAG IV SCH (09:50)
[2022-07-15] MEDS: NORCO 7.5-325 PO PRN ×2 (09:55→20:22)
--- NOTE | 2022-07-15 10:37 | PN ---
DATE OF SERVICE: 07/14/22 SUBJECTIVE: 71 year old white female hospitalized with COVID 19 positive status with cough, congestive, bronchitis and weakness. The patient's condition has improved. She is feeling better but had restless night yesterday, she couldn't sleep likely because she had a nap. REVIEW OF SYSTEMS: CONSTITUTIONAL: No night sweats. No fatigue, malaise, lethargy. No fever or chills. HEENT: Eyes: No visual changes. No eye pain. No eye discharge. ENT: No runny nose. No epistaxis. No sinus pain. No sore throat. No odynophagia. No congestion. RESPIRATORY: No cough, no congestion. No hemoptysis. No shortness of breath. CARDIOVASCULAR: No angina symptoms. No CHF symptoms. No atypical chest pain for CAD. No palpitations. No PND. No orthopnea. GASTROINTESTINAL: No abdominal pain. No nausea or vomiting. No diarrhea or constipation. No hematemesis. No hematochezia. GENITOURINARY: No urgency. No frequency. No dysuria. No hematuria. No obstructive symptoms. No discharge. No pain. No significant abnormal bleeding. MUSCULOSKELETAL: No musculoskeletal pain; no joint swelling. NEUROLOGICAL: No headache. No neck pain. No syncope. No seizures. No dizziness. PSYCHIATRIC: Not anxious. No depression. No suicidal thoughts. No homicidal thoughts. SKIN: No rash. No lesions. No wounds. ENDOCRINE: No unexplained weight loss. No weight gain. HEMATOLOGIC/LYMPHATIC: No anemia. No purpura. No petechiae. No prolonged or excessive bleeding. No palpable lymph nodes. PHYSICAL EXAMINATION: VITAL SIGNS: Temperature 97.5, pulse 60, respiratory rate 20, blood pressure 146/70 and pulse ox 97%. HEENT: Head normocephalic, atraumatic. Eyes: Extraocular muscles are intact. Pupils are equal, round and reactive to light and accommodation. Ears: No lesions. Nose appeared normal. Throat: No exudate or erythema. NECK: Supple. No JVD, no carotid bruit. No lymphadenopathy or thyromegaly. LUNGS:Decreased breath sounds but clear to auscultation. Percussion note normal. Chest symmetrical. HEART: S1, S2, no S3. No murmurs. No cyanosis or clubbing. No ascites. Pulses: Dorsalis pedis and posterior tibial pulses +1 to +2 bilaterally. ABDOMEN: Soft. Nontender. Bowel sounds active. No CVA tenderness. No mass felt. EXTREMITIES: No edema. Full range of motion of all extremities, equal. NEUROLOGIC: No focal deficit. Cranial nerves II through XII are grossly intact. No headache. No double vision. SKIN: Not dry. Intact. Turgor - normal. LYMPHATIC: No palpable lymph nodes/no lymphedema. MUSCULOSKELETAL: Normal joints with no swelling. Muscle tone is normal. LABS: Hgb 11.7, hct 37, WBC 11,000 normal differential, creatinine 0.7, BUN 12, potassium 3.7 ASSESSMENT: 1. COVID 19 positive status with acute bronchitis/pneumonitis. PLAN: 1. Continue IV antibiotics, steroids and Remdesivir. 2. The patient's appetite has improved. 3. Hydration status improved. CONDITION: Improving. TIME SPENT: More than 30 minutes. Plan and coordination of the patient's care discussed in the presence of nurse. JONATHAN
[2022-07-15] MEDS: HUMULIN R SUBCUT PRN (11:53)
[2022-07-15] MEDS: ZITHROMAX 500 MG in SODIUM CHLORIDE 250 ML IV SCH (11:55)
[2022-07-15] MEDS: VEKLURY 100 MG in SODIUM CHLORIDE 250 ML IV SCH (14:54)
[2022-07-15] MEDS: LIPITOR PO SCH (20:14)
[2022-07-16] MEDS: PEPCID PO SCH ×2 (05:36→17:35)
[2022-07-16] MEDS: COZAAR PO SCH ×2 (05:45→08:54)
[2022-07-16 06:09] LABS: BASOPHILS % (AUTO) 0.1 % (0.0-3.0); EOSINOPHILS % (AUTO) 0.1 % (0.0-7.0); HEMATOCRIT 38.5 % (37.0-47.0); HEMOGLOBIN 11.8 g/dl (12.0-16.0); IMMATURE GRANULOCYTE # (AUTO) 0.1 (0.0-1.0); IMMATURE GRANULOCYTE % (AUTO) 0.6 % (0.0-5.0); LYMPHOCYTES # (AUTO) 1.8 K/uL (0.60-3.4); LYMPHOCYTES % (AUTO) 18.1 (10.0-50.0); MEAN CORPUSCULAR HGB CONC 30.6 (31.8-35.4); MEAN CORPUSCULAR VOLUME 91.2 fl (81.0-99.0); MONOCYTES # (AUTO) 0.7 K/uL (0.4-2.0); MONOCYTES % (AUTO) 7.4 (0-10); NEUTROPHILS # (AUTO) 7.4 K/ul (2.0-6.9); NEUTROPHILS % (AUTO) 73.7 % (42.2-75.2); PLATELET COUNT 218 10^3/uL (140-440); RDW COEFFICIENT OF VARIATION 13.9 % (11.6-14.8); RED BLOOD COUNT 4.22 10^6/ul (4.20-5.40)
[2022-07-16 06:26] LABS: ALANINE AMINOTRANSFERASE 13.1 U/L (0-35); ALBUMIN 3.23 g/dL (3.5-5.0); ALKALINE PHOSPHATASE 104.7 U/L (53-141); ASPARTATE AMINO TRANSFERASE 24.4 U/L (14-36); BILIRUBIN,TOTAL 0.3 mg/dL (0.2-1.3); BLOOD UREA NITROGEN 17.3 mg/dL (7-17); CALCIUM 8.36 mg/dL (8.4-10.2); CHLORIDE 98.8 mmol/L (98-107); CREATININE 0.75 mg/dL (0.60-1.30); GLUCOSE 101.4 mg/dL (74-106); POTASSIUM 4.12 mmol/L (3.5-5.1); SODIUM 137.1 mmol/L (134.5-145); TOTAL PROTEIN 6.35 g/dL (6.3-8.2)
[2022-07-16] MEDS: TAMBOCOR PO SCH ×2 (08:47→20:35)
[2022-07-16] MEDS: COREG PO SCH ×2 (08:47→17:35)
[2022-07-16] MEDS: HYDROCHLOROTHIAZIDE PO SCH (08:47)
[2022-07-16] MEDS: ELIQUIS PO SCH ×2 (08:47→20:36)
[2022-07-16] MEDS: VITAMIN D PO SCH (08:47)
[2022-07-16] MEDS: DECADRON IVP SCH (08:48)
[2022-07-16] MEDS: GLUCOPHAGE PO SCH (08:48)
[2022-07-16] MEDS: SYMBICORT 160-4.5 MCG INHALER IH SCH ×2 (08:53→20:35)
[2022-07-16] MEDS: ROCEPHIN 1 GM/50 ML D5W 1 GM/50 ML BAG IV SCH (08:54)
[2022-07-16] MEDS ORDERED: VEKLURY 100 MG in SODIUM CHLORIDE 250 ML IV ONE (09:00)
[2022-07-16] MEDS: NORCO 7.5-325 PO PRN ×2 (09:32→20:35)
[2022-07-16] MEDS: LIPITOR PO SCH (20:35)
[2022-07-16] MEDS: HUMULIN R SUBCUT PRN (20:36)
[2022-07-17 05:54] VITALS: BP 136/85; TEMP 97.6
[2022-07-17] MEDS: PEPCID PO SCH (06:20)
[2022-07-17] MEDS ORDERED: NORCO 7.5-325 PO PRN (09:16)
[2022-07-17] MEDS: VITAMIN D PO SCH (09:52)
[2022-07-17] MEDS: HYDROCHLOROTHIAZIDE PO SCH (09:55)
[2022-07-17] MEDS: COZAAR PO SCH (09:55)
[2022-07-17] MEDS: COREG PO SCH (09:59)
[2022-07-17] MEDS: TAMBOCOR PO SCH (09:59)
[2022-07-17] MEDS: ELIQUIS PO SCH (10:01)
[2022-07-17] MEDS: GLUCOPHAGE PO SCH (10:01)
[2022-07-17] MEDS: DECADRON IVP SCH (10:09)
[2022-07-17] MEDS: SYMBICORT 160-4.5 MCG INHALER IH SCH (10:10)
--- NOTE | 2022-07-26 11:29 | PN ---
DATE OF SERVICE: 07/15/22 SUBJECTIVE: 71 year old white female was seen and examined with the Nurse Practitioner. The patient's condition is improving. The patient had COVID 19 and doesn't have any symptoms. Cardiovascular status is stable. Condition is improving. Continue antibiotics and steroids. TIME SPENT: More than 30 minutes. Plan and coordination of the patient's care discussed in the presence of nurse. JONATHAN
--- NOTE | 2022-07-26 11:39 | PN ---
DATE OF SERVICE: 07/16/22 SUBJECTIVE: 71 year old white female hospitalized with COVID 19 status with dehydration, acute bronchitis/pneumonitis. The patient has been antibiotics and condition has improved. REVIEW OF SYSTEMS: CONSTITUTIONAL: No night sweats. No fatigue, malaise, lethargy. No fever or chills.Blood pressure was somewhat elevated today, no symptoms. HEENT: Eyes: No visual changes. No eye pain. No eye discharge. ENT: No runny nose. No epistaxis. No sinus pain. No sore throat. No odynophagia. No congestion. RESPIRATORY: Mild cough, no congestion. No hemoptysis. No shortness of breath. CARDIOVASCULAR: No angina symptoms. No CHF symptoms. No atypical chest pain for CAD. No palpitations. No PND. No orthopnea. GASTROINTESTINAL: No abdominal pain. No nausea or vomiting. No diarrhea or constipation. No hematemesis. No hematochezia. GENITOURINARY: No urgency. No frequency. No dysuria. No hematuria. No obstructive symptoms. No discharge. No pain. No significant abnormal bleeding. MUSCULOSKELETAL: No musculoskeletal pain; no joint swelling. NEUROLOGICAL: No headache. No neck pain. No syncope. No seizures. No dizziness. PSYCHIATRIC: Not anxious. No depression. No suicidal thoughts. No homicidal thoughts. SKIN: No rash. No lesions. No wounds. ENDOCRINE: No unexplained weight loss. No weight gain. HEMATOLOGIC/LYMPHATIC: No anemia. No purpura. No petechiae. No prolonged or excessive bleeding. No palpable lymph nodes. PHYSICAL EXAMINATION: VITAL SIGNS: Temperature 97.7, pulse 60m, respiratory rate 18, blood pressure 161/76 and pulse ox 95%. HEENT: Head normocephalic, atraumatic. Eyes: Extraocular muscles are intact. Pupils are equal, round and reactive to light and accommodation. Ears: No lesions. Nose appeared normal. Throat: No exudate or erythema. NECK: Supple. No JVD, no carotid bruit. No lymphadenopathy or thyromegaly. LUNGS: Clear to auscultation. Percussion note normal. Chest symmetrical. HEART: S1, S2, no S3. No murmurs. No cyanosis or clubbing. No ascites. Pulses: Dorsalis pedis and posterior tibial pulses +1 to +2 bilaterally. ABDOMEN: Soft. Nontender. Bowel sounds active. No CVA tenderness. No mass felt. EXTREMITIES: No edema. Full range of motion of all extremities, equal. NEUROLOGIC: No focal deficit. Cranial nerves II through XII are grossly intact. No headache. No double vision. SKIN: Not dry. Intact. Turgor - normal. LYMPHATIC: No palpable lymph nodes/no lymphedema. MUSCULOSKELETAL: Normal joints with no swelling. Muscle tone is normal. LABS: hgb 11.8, hct 38, WBC 10,000 normal differential, creatinine 0.7, BUN 17, potassium 4.1. ASSESSMENT: 1. Acute pneumonitis/bronchitis, resolving 2. COVID 19 status with dehydration and weakness seems to be resolving She is asymptomatic from COVID with no fever or chills, very mild cough at all. PLAN: 1. Continue antibiotics, steroids and NEBS 2. The patient was explained to isolate herself for couple of days. It has already been several days of isolation she is practically asymptomatic. Advised to wear N95 for another 3-4 days after she is discharged that will be tomorrow. CONDITION: Stable. TIME SPENT: More than 30 minutes. Plan and coordination of the patient's care discussed in the presence of nurse. JONATHAN
--- NOTE | 2022-07-27 10:11 | PN ---
DATE OF SERVICE: 07/17/22 SUBJECTIVE: 71 year old white female hospitalized with acute bronchitis/pneumonitis with COVID 19 status. The patient's condition has improved. She is feeling a lot better and wants to go home. REVIEW OF SYSTEMS: CONSTITUTIONAL: No night sweats. No fatigue, malaise, lethargy. No fever or chills. HEENT: Eyes: No visual changes. No eye pain. No eye discharge. ENT: No runny nose. No epistaxis. No sinus pain. No sore throat. No odynophagia. No congestion. RESPIRATORY: No cough, no congestion. No hemoptysis. No shortness of breath. CARDIOVASCULAR: No angina symptoms. No CHF symptoms. No atypical chest pain for CAD. No palpitations. No PND. No orthopnea. GASTROINTESTINAL: No abdominal pain. No nausea or vomiting. No diarrhea or constipation. No hematemesis. No hematochezia. GENITOURINARY: No urgency. No frequency. No dysuria. No hematuria. No obstructive symptoms. No discharge. No pain. No significant abnormal bleeding. MUSCULOSKELETAL: No musculoskeletal pain; no joint swelling. NEUROLOGICAL: No headache. No neck pain. No syncope. No seizures. No dizziness. PSYCHIATRIC: Not anxious. No depression. No suicidal thoughts. No homicidal thoughts. SKIN: No rash. No lesions. No wounds. ENDOCRINE: No unexplained weight loss. No weight gain. HEMATOLOGIC/LYMPHATIC: No anemia. No purpura. No petechiae. No prolonged or excessive bleeding. No palpable lymph nodes. PHYSICAL EXAMINATION: VITAL SIGNS: Temperature 97.6, pulse 65, respiratory rate 16, blood pressure 136/85 and pulse ox 95%. HEENT: Head normocephalic, atraumatic. Eyes: Extraocular muscles are intact. Pupils are equal, round and reactive to light and accommodation. Ears: No lesions. Nose appeared normal. Throat: No exudate or erythema. NECK: Supple. No JVD, no carotid bruit. No lymphadenopathy or thyromegaly. LUNGS: Decreased breath sounds but clear to auscultation. Percussion note normal. Chest symmetrical. HEART: S1, S2, no S3. No murmurs. No cyanosis or clubbing. No ascites. Pulses: Dorsalis pedis and posterior tibial pulses +1 to +2 bilaterally. ABDOMEN: Soft. Nontender. Bowel sounds active. No CVA tenderness. No mass felt. EXTREMITIES: No edema. Full range of motion of all extremities, equal. NEUROLOGIC: No focal deficit. Cranial nerves II through XII are grossly intact. No headache. No double vision. SKIN: Not dry. Intact. Turgor - normal. LYMPHATIC: No palpable lymph nodes/no lymphedema. MUSCULOSKELETAL: Normal joints with no swelling. Muscle tone is normal. LABS: Hgb 11, hct 38, WBC 10,000 normal differential, creatinine 0.7, BUN 17, potassium 4.1. ASSESSMENT: 1. COVID 19 status with acute bronchitis seems to be resolving PLAN: 1. Discharge the patient home to be seen on 12/26/21 on followup 2. Prednisone 20mg twice a day for 3 days after that 20mg daily for 4 days 3. Symbicort to be continued 4. Advised to continue the rest of the medications she was on that is atorvastatin, Apixaban, Flecainide, hydrocodone, Carvedilol, Losartan, Metformin and inhalers. TIME SPENT: More than 30 minutes. Plan and coordination of the patient's care discussed in the presence of nurseUna CASTILLO
--- NOTE | 2022-07-27 11:06 | DS ---
DATE OF SERVICE: 07/17/22 FINAL DIAGNOSIS: 1. Bronchitis/pneumonitis 2. COVID 19 status 3. Chronic lung disease 4. Dehydration 5. Weakness 6. Obesity, BMI 37 7. Atrial flutter/fib permanent 8. Dyslipidemia 9. 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 Instruction to come back on followup on 07/26/22. Instruction given for the patient to still stay in isolation for three more days. MEDICATIONS AT DISCHARGE: Nitroglycerin PRN Lorazepam Apixaban Atorvastatin Flecainide Hydrocodone Carvedilol Losartan Dulcolax Hydrochlorothiazide Metformin Albuterol Inhaler Hyzaar NEW PRESCRIPTIONS: Prednisone 20mg twice a day for 3 days after that Prednisone 20mg daily for 4 days Symbicort inhaler two QAM LABS: Hgb 11.8, hct 38, WBC 10,000 normal differential, creatinine 0.7, BUN 17, potassium 4.1. HOSPITAL COURSE: 71 year old white female hospitalized with COVID 19 status with pneumonitis/bronchitis. She was dehydrated and weak. IV fluids were given with IV antibiotics and steroids. The patient's condition improved. Her bronchitis symptoms practically resolved she started feeling better. Appetite and strength improved. She was able to walk on her own. The patient on discharge was kept on steroids on tapering dose and Symbicort. The patient is to be seen on 07/26/22 on followup. Condition at the time of discharge is stable. The patient has been explained about vaccination. She has been advised to continue with her booster program. Still observe three days of quarantine after discharge. Condition at the time of discharge is stable. TIME SPENT: More than 60 minutes. [facility]Brian
--- NOTE | 2022-07-27 11:06 | PN ---
07/12/22: Level 5 REST OF THEM: Intermediate FINAL DAY: D as in discharge MTDD
== END 2022-07-17 13:30 | disposition home or self-care (01) | DRG 202 ==
LOC: ED 11:39 → SCU 14:44
PROVIDERS: ADMIT Internal Medicine; ATTEND Internal Medicine
DX: J84.114 Acute interstitial pneumonitis; J44.9 Chronic obstructive pulmonary disease, unspecified; Z79.01 Long term (current) use of anticoagulants; J20.8 Acute bronchitis due to other specified organisms; I95.9 Hypotension, unspecified; E86.0 Dehydration; I48.21 Permanent atrial fibrillation; E66.9 Obesity, unspecified; Z68.37 Body mass index [BMI] 37.0-37.9, adult; I48.92 Unspecified atrial flutter; E11.9 Type 2 diabetes mellitus without complications; Z79.84 Long term (current) use of oral hypoglycemic drugs; M51.36 Other intervertebral disc degeneration, lumbar region; Z51.81 Encounter for therapeutic drug level monitoring; E78.5 Hyperlipidemia, unspecified; U07.1 COVID-19; M15.9 Polyosteoarthritis, unspecified; M62.81 Muscle weakness (generalized); Z79.899 Other long term (current) drug therapy

== ENCOUNTER 2022-11-27 16:50 | Inpatient (IN) ==
[2022-11-27 17:04] LABS: BASOPHILS % (AUTO) 0.3 % (0.0-3.0); EOSINOPHILS # (AUTO) 0.6 K/ul (0.0-0.7); EOSINOPHILS % (AUTO) 4.8 % (0.0-7.0); HEMATOCRIT 41.9 % (37.0-47.0); HEMOGLOBIN 12.8 g/dl (12.0-16.0); IMMATURE GRANULOCYTE # (AUTO) 0.1 (0.0-1.0); IMMATURE GRANULOCYTE % (AUTO) 0.4 % (0.0-5.0); LYMPHOCYTES # (AUTO) 2.7 K/uL (0.60-3.4); LYMPHOCYTES % (AUTO) 23.2 (10.0-50.0); MEAN CORPUSCULAR HEMOGLOBIN 27.9 pg (27.0-31.0); MEAN CORPUSCULAR HGB CONC 30.5 (31.8-35.4); MEAN CORPUSCULAR VOLUME 91.3 fl (81.0-99.0); MONOCYTES # (AUTO) 0.8 K/uL (0.4-2.0); MONOCYTES % (AUTO) 6.6 (0-10); NEUTROPHILS # (AUTO) 7.6 K/ul (2.0-6.9); NEUTROPHILS % (AUTO) 64.7 % (42.2-75.2); PLATELET COUNT 226 10^3/uL (140-440); RED BLOOD COUNT 4.59 10^6/ul (4.20-5.40); WHITE BLOOD COUNT 11.73 K/ul (4.6-10.2)
[2022-11-27 17:14] LABS: ALANINE AMINOTRANSFERASE 13.2 U/L (0-35); ALBUMIN 3.94 g/dL (3.5-5.0); ASPARTATE AMINO TRANSFERASE 25.9 U/L (14-36); BILIRUBIN,TOTAL 0.43 mg/dL (0.2-1.3); BLOOD UREA NITROGEN 16.7 mg/dL (7-17); CALCIUM 8.68 mg/dL (8.4-10.2); CARBON DIOXIDE 33.8 mmol/L (22-30.0); CHLORIDE 101.8 mmol/L (98-107); CREATININE 0.82 mg/dL (0.60-1.30); GLUCOSE 120.8 mg/dL (74-106); LIPASE 42.6 U/L (23-300); POTASSIUM 3.69 mmol/L (3.5-5.1); SODIUM 139.1 mmol/L (134.5-145)
--- NOTE | 2022-11-27 17:17 | DI ---
EXAM: CHEST FRONTAL VIEW HISTORY: Chest pain COMPARISON: 07/12/2022 FINDINGS: Mild cardiomegaly is stable. There is diffuse, chronic appearing interstitial accentuatio n. There are scattered calcifications suggesting old granulomatous disease. No acute infiltrates ar e seen. No vascular congestion. There is no consolidation, visible pleural fluid or pneumothorax. Bones reveal no acute abnormality. IMPRESSION: Cardiomegaly. No acute cardiopulmonary process.
[2022-11-27 17:25] LABS: TROPONIN I < 0.012 ng/ml (0.0000-0.120)
[2022-11-27] MEDS ORDERED: NITROSTAT SL STA ×2 (17:29→17:53)
[2022-11-27] MEDS ORDERED: NITROSTAT SL ONE (17:29)
--- NOTE | 2022-11-27 17:29 | ED.PDOC ---
General ED Provider: Dr. TIAN WEEKS Chief Complaint: Chest Pain Stated Complaint: my chest has been hurting since last night Time Seen by Provider: 11/27/22 16:58 Mode of Arrival: Walk-In Information Source: Patient Exam Limitations: No limitations Primary Care Provider: TEZ FREEMAN MD Nursing and Triage Documentation Reviewed and Agree: Yes Does patient meet sepsis criteria?: No System Inflammatory Response Syndrome: Not Applicable Sepsis Protocol: For patient's 13 years and over: Temp is 96.8 and below OR 101 and greater Pulse >90 BPM Resp >20/minute Acutely Altered Mental Status Are patient's symptoms suggestive of a new infection, such as: -Pneumonia -Skin, Soft Tissue -Endocarditis -UTI -Bone, Joint Infection -Implantable Device -Acute Abdominal Infection -Wound Infection -Meningitis -Blood Stream Catheter Infection -Unknown Cardiovascular Complaint Exam Chest Pain Complaint/Exam Onset: Gradual Duration: 12hrs Symptoms Are: Still present Timing: Intermittent Initial Severity: Mild Current Severity: Mild Location: Reports Discrete and Left anterior Pain Radiates: Reports Epigastrium Character: Reports Dull, Aching and Heaviness Aggravating: Reports None Alleviating: Reports None Associated Signs and Symptoms: Denies Diaphoresis, Nausea, Vomiting, Fever, Palpitations, Cough, Hemoptysis, Back pain, Abdominal pain, Dizziness, Short of air, Calf pain or Calf swelling Related History: Reports Current ARBs, Current Beta Sandoval and Current Diuretic AMI/ACS Risk Factors: Reports Sedentary, Diabetes, Obesity, Nitroglycerine use, Hypertension and CHF TAD Risk Factors: Reports Hypertension Prior Care for this Complaint: No Recent Stress Test: No Recent Echo/LV Function: No JVD Present: No Subcutaneous Emphysema Present: No Diminshed Breath Sounds: No Reproducible Chest Wall Pain: No Bilateral Pulses Present: Yes Unequal Pulses Noted: No If Risk Factors for AMI/ACS Consider: EKG, Cardiac Enzymes and Oxygen Differential Diagnoses: Acute HI, ACS, Pulmonary Edema, Chest Wall Pain and Pulmonary Embolism Quality Indicator For Non-Traumatic Chest Pain/Syncope: EKG Performed Review of Systems Review Of Systems Constitutional: Reports No symptoms Eyes: Reports No symptoms Ears, Nose, Mouth, Throat: Reports No symptoms Respiratory: Reports No symptoms Cardiac: Reports Chest pain GI: Reports No symptoms : Reports No symptoms Musculoskeletal: Reports No symptoms Skin: Reports No symptoms Neurological: Reports No symptoms Endocrine: Reports No symptoms Hematologic/Lymphatic: Reports No symptoms All Other Systems: Reviewed and Negative PFSH Medical History Anemia Anxiety Asthma Atrial fibrillation Cardiomegaly CHF (congestive heart failure) Chronic low back pain Chronic otitis media COPD (chronic obstructive pulmonary disease) Degenerative joint disease of spine Diabetes mellitus, type 2 Dyslipidemia Emphysema of lung GERD (gastroesophageal reflux disease) Hypertension Hypothyroidism Insomnia Lumbar facet arthropathy Obesity (BMI 30-39.9) Osteoarthritis Radiculopathy of lumbar region Sciatica Sensorineural hearing loss (SNHL) of both ears Family History Mother Diabetes Social History Smoking and tobacco status: Former smoker Alcohol intake: never History of recent travel: No Surgical History History of bilateral cataract extraction History of cardiac cath History of cardiac radiofrequency ablation History of section History of cholecystectomy History of colonoscopy History of esophagogastroduodenoscopy (EGD) History of hysterectomy Female Reproductive History Menstrual Hx Hysterectomy: Yes Hx Tubal Ligation: No Physical Exam Physical Exam Appearance: Reports Well-appearing Ill-appearing: None Pain Distress: None Eyes: Reports [place], EOMI and Conjunctiva clear ENT: Reports Ears normal, Nose normal and Oropharynx normal Neck: Supple Respiratory: Reports Airway patent, Breath sounds clear and Breath sounds equal Cardiovascular: Reports RRR, Pulses normal, No rub and No murmur GI/: Reports Soft, Nontender, No masses and Bowel sounds normal Musculoskeletal: Reports Normal strength, ROM intact, No edema and No calf tenderness Skin: Reports Warm, Dry and Normal color Neurological: Reports Sensation intact, Motor intact, Reflexes intact, Cranial nerves intact, Alert and Oriented Psychiatric: Reports Affect appropriate and Mood appropriate Interpretation Radiology Interpretation Radiology Interpretation By: Radiologist Radiology Results: Negative Exam Interpreted: Portable CXR EKG Interpretation Time of EKG #1: 16:49 Rate: Normal Rhythm: Other Ectopy: None ST Segment: Normal Interpretation: nsr Physician Notification Case Discussed Physician Notified: DR FREEMAN Time of Notification: 18:05 Critical Care Note Critical Care Note Total Critical Care Time (mins): 0 Course Course Hematology/Chemistry: 11/27/22 16:55 11/27/22 16:55 Orders, Labs, Meds: Lab Review 11/27/22 11/27/22 11/27/22 16:55 16:55 16:55 WBC 11.73 H RBC 4.59 Hgb 12.8 Hct 41.9 MCV 91.3 MCH 27.9 MCHC 30.5 L RDW Coeff of Vel 14.0 Plt Count 226 Immature Gran % (Auto) 0.4 Neut % (Auto) 64.7 Lymph % (Auto) 23.2 [place] % (Auto) 6.6 Eos % (Auto) 4.8 Baso % (Auto) 0.3 Neut # (Auto) 7.6 H Lymph # (Auto) 2.7 [place] # (Auto) 0.8 Eos # (Auto) 0.6 Baso # (Auto) 0.0 Immature Gran # (Auto) 0.1 Sodium 139.1 Potassium 3.69 Chloride 101.8 Carbon Dioxide 33.8 H Anion Gap 7.19 BUN 16.7 Creatinine 0.82 Estimated GFR (MDRD) 68.00 BUN/Creatinine Ratio 20.36 Glucose 120.8 H Calcium 8.68 Total Bilirubin 0.43 AST 25.9 ALT 13.2 Alkaline Phosphatase 152.0 H Troponin I < 0.012 Total Protein 7.50 Albumin 3.94 Globulin 3.56 Albumin/Globulin Ratio 1.10 Lipase 42.6 D-Dimer 438.35 SARS CoV-2 RNA Rapid MAN 11/27/22 17:25 WBC RBC Hgb Hct MCV MCH MCHC RDW Coeff of Vel Plt Count Immature Gran % (Auto) Neut % (Auto) Lymph % (Auto) [place] % (Auto) Eos % (Auto) Baso % (Auto) Neut # (Auto) Lymph # (Auto) [place] # (Auto) Eos # (Auto) Baso # (Auto) Immature Gran # (Auto) Sodium Potassium Chloride Carbon Dioxide Anion Gap BUN Creatinine Estimated GFR (MDRD) BUN/Creatinine Ratio Glucose Calcium Total Bilirubin AST ALT Alkaline Phosphatase Troponin I Total Protein Albumin Globulin Albumin/Globulin Ratio Lipase D-Dimer SARS CoV-2 RNA Rapid MAN Negative Orders Category Date Time Status EKG-(ED ONLY) Stat CARDIO 11/27/22 16:57 Completed ED RESEARCH DEVELOPMENT MANAGER APPLIED .ONCE EMERGENCY 11/27/22 16:57 Active ED IV/MEDIPORT/POWERPORT .ONCE EMERGENCY 11/27/22 16:57 Active OXYGEN [ED APPLY O2] .ONCE EMERGENCY 11/27/22 16:57 Active RESUSCITATION [ED CODE STATUS] .ONCE EMERGENCY 11/27/22 17:40 Active CBC W/ AUTO DIFF Stat LAB 11/27/22 16:55 Completed COMPREHENSIVE METABOLIC PANEL Stat LAB 11/27/22 16:55 Completed D-DIMER Stat LAB 11/27/22 16:55 Completed LIPASE Stat LAB 11/27/22 16:55 Completed SARS COV-2 RNA RAPID MAN Stat LAB 11/27/22 17:25 Completed TROPONIN I Stat LAB 11/27/22 16:55 Completed 0.9 % Sodium Chloride [Saline Flush] MEDS 11/27/22 16:57 Active 1 syr IVF PRN PRN Dexamethasone Sod Phosphate [Decadron] MEDS 11/27/22 18:04 Stat 2 mg IM ONCE STA Hydromorphone HCl [Dilaudid 0.5 mg/0.5 ml Syringe] MEDS 11/27/22 17:53 Disc ontinued 0.5 mg IVP ONCE STA Ketorolac Tromethamine [Toradol] MEDS 11/27/22 18:04 Stat 60 mg IM ONCE STA Nitroglycerin [Nitrostat] MEDS 11/27/22 17:29 Discontinued 0.4 mg SL .STK-MED ONE Nitroglycerin [Nitrostat] MEDS 11/27/22 17:29 Discontinued 0.4 mg SL ONCE STA Nitroglycerin [Nitrostat] MEDS 11/27/22 17:53 Discontinued 0.4 mg SL ONCE STA CXR [CHEST, 1V AP ONLY] Stat RADS 11/27/22 17:02 Completed Medications Generic Name Dose Route Start Last Admin Trade Name Freq PRN Reason Stop Dose Admin Sodium Chloride 1 syr 11/27/22 16:57 0.9% Sodium Chloride 10 Ml Disp.Syrin IVF PRN PRN To flush IV Discontinued Medications Generic Name Dose Route Start Last Admin Trade Name Freq PRN Reason Stop Dose Admin Hydromorphone HCl 0.5 mg 11/27/22 17:53 Hydromorphone 0.5 Mg/0.5 Ml Syringe IVP 11/27/22 17:54 ONCE STA Nitroglycerin 0.4 mg 11/27/22 17:29 11/27/22 17:33 Nitroglycerin 0.4 Mg Tab.Subl SL 01/14/23 17:30 0.4 mg ONCE STA Administration Nitroglycerin 0.4 mg 11/27/22 17:53 11/27/22 17:55 Nitroglycerin 0.4 Mg Tab.Subl SL 11/27/22 17:54 0.4 mg ONCE STA Administration Vital Signs: Temp Pulse Resp BP Pulse Ox 11/27/22 17:54 64 19 128/74 98 11/27/22 17:33 77 20 151/81 H 99 11/27/22 16:52 96.9 F L 98 22 H 161/100 H 98 MITZI Risk Score MITZI Risk Score: Risk Score Odds of by 30D 0 0.1 (0.1-0.2) 1 0.3 (0.2-0.3) 2 0.4 (0.3-0.5) 3 0.7 (0.6-0.9) 4 1.2 (1.0-1.5) 5 2.2 (1.9-2.6) 6 3.0 (2.5-3.6) 7 4.8 (3.8-6.1) Discharge Plan Discharge Patient Disposition: ADMITTED INPATIENT Discharge Problem: Chest pain Prescriptions: No Action nitroglycerin [Nitrostat] 0.4 MG tablet, sublingual 1 tab sublingual Q5MIN X 3 DOSES PRN (Reason: chest pain) lorazepam 0.5 MG tablet 1 mg PO BID PRN (Reason: Anxiety) atorvastatin [Lipitor] 40 MG tablet 40 mg PO BEDTIME Eliquis 5 MG tablet 5 mg PO BID carvedilol [Coreg] 6.25 mg Tablet 6.25 mg PO BID Qty: 60 1RF Rx Instructions: must administer with a meal/food losartan [Cozaar] 25 mg Tablet 25 mg PO DAILY Qty: 30 1RF hydrochlorothiazide 12.5 mg Tablet 6.25 mg PO DAILY docusate sodium 100 mg capsule 100 mg PO BID PRN (Reason: Constipation) metformin [Glucophage] 500 mg Tablet 500 mg PO DAILY albuterol sulfate 1.25 mg/3 mL Solution For Nebulization 1.25 mg INHALATION Q4-6H PRN (Reason: Wheezing) hydrocodone-acetaminophen [[place]] 1 EACH tablet 1 tab PO BID PRN (Reason: Pain) flecainide 100 MG tablet 100 mg PO BID albuterol sulfate 1.25 mg/3 mL Solution For Nebulization 2.5 mg INHALATION 3-4XD Qty: 100 5RF Rx Instructions: DX: J44.9 AND J44.1 prednisone 20 mg Tablet 20 mg PO BIDWM Qty: 10 0RF Rx Instructions: twice daily with food for 3 days then daily x 4 days budesonide-formoterol [Symbicort] 160-4.5 mcg/actuation Hfa Aerosol Inhaler 2 puff INHALATION BID Qty: 17 0RF Rx Instructions: USE INHALER PROVIDED Did you review [place] [employer] for ALL controlled substances?: Not Applicable ED Provider: TIAN HOLDER Condition: Fair Physician Progress Note: []
[2022-11-27] MEDS ORDERED: DILAUDID 0.5 MG/0.5 ML SYRINGE IVP STA (17:53)
[2022-11-27 18:03] LABS: SARS COV-2 RNA RAPID NAAT NEGATIVE (NEGATIVE)
[2022-11-27] MEDS ORDERED: TORADOL IM STA (18:04)
[2022-11-27] MEDS ORDERED: DECADRON IM STA (18:04)
[2022-11-27] MEDS ORDERED: TYLENOL PO PRN (18:07)
[2022-11-27] MEDS ORDERED: COLACE PO PRN (18:09)
[2022-11-27] MEDS ORDERED: NITROSTAT SL PRN (18:09)
[2022-11-27 20:13] VITALS: BMI 36.5
[2022-11-27] MEDS: ELIQUIS PO SCH (20:49)
[2022-11-27] MEDS: TAMBOCOR PO SCH (20:50)
[2022-11-27] MEDS: SYMBICORT 160-4.5 MCG INHALER IH SCH (20:50)
[2022-11-27] MEDS: LIPITOR PO SCH (20:50)
[2022-11-27] MEDS ORDERED: COREG PO SCH (21:00)
[2022-11-28 00:32] LABS: CREATINE KINASE < 20.0 U/L (30-135)
[2022-11-28] MEDS: NORCO 7.5-325 PO PRN ×2 (00:43→21:15)
[2022-11-28 00:46] LABS: TROPONIN I < 0.012 ng/ml (0.0000-0.120)
[2022-11-28 08:02] LABS: BASOPHILS % (AUTO) 0.2 % (0.0-3.0); EOSINOPHILS % (AUTO) 0.1 % (0.0-7.0); HEMATOCRIT 39.5 % (37.0-47.0); HEMOGLOBIN 12.2 g/dl (12.0-16.0); IMMATURE GRANULOCYTE # (AUTO) 0.1 (0.0-1.0); IMMATURE GRANULOCYTE % (AUTO) 0.5 % (0.0-5.0); LYMPHOCYTES # (AUTO) 1.2 K/uL (0.60-3.4); LYMPHOCYTES % (AUTO) 9.8 (10.0-50.0); MEAN CORPUSCULAR HEMOGLOBIN 28.2 pg (27.0-31.0); MEAN CORPUSCULAR HGB CONC 30.9 (31.8-35.4); MEAN CORPUSCULAR VOLUME 91.2 fl (81.0-99.0); MONOCYTES # (AUTO) 0.4 K/uL (0.4-2.0); MONOCYTES % (AUTO) 3.3 (0-10); NEUTROPHILS # (AUTO) 10.6 K/ul (2.0-6.9); NEUTROPHILS % (AUTO) 86.1 % (42.2-75.2); PLATELET COUNT 215 10^3/uL (140-440); RDW COEFFICIENT OF VARIATION 13.7 % (11.6-14.8); RED BLOOD COUNT 4.33 10^6/ul (4.20-5.40)
[2022-11-28 08:07] LABS: ALBUMIN 3.69 g/dL (3.5-5.0); ALKALINE PHOSPHATASE 146.6 U/L (53-141); ASPARTATE AMINO TRANSFERASE 24.8 U/L (14-36); BILIRUBIN,TOTAL 0.48 mg/dL (0.2-1.3); BLOOD UREA NITROGEN 20.9 mg/dL (7-17); CALCIUM 8.82 mg/dL (8.4-10.2); CARBON DIOXIDE 28.4 mmol/L (22-30.0); CHLORIDE 103.1 mmol/L (98-107); CREATININE 0.72 mg/dL (0.60-1.30); GLUCOSE 164.8 mg/dL (74-106); POTASSIUM 4.62 mmol/L (3.5-5.1); SODIUM 137.3 mmol/L (134.5-145); TOTAL PROTEIN 7.12 g/dL (6.3-8.2)
[2022-11-28 08:24] LABS: CREATINE KINASE < 20.0 U/L (30-135); TROPONIN I < 0.012 ng/ml (0.0000-0.120)
[2022-11-28] MEDS: TAMBOCOR PO SCH ×2 (08:44→21:14)
[2022-11-28] MEDS: COREG PO SCH ×2 (08:44→17:32)
[2022-11-28] MEDS: COZAAR PO SCH (08:44)
[2022-11-28] MEDS: ELIQUIS PO SCH ×2 (08:45→21:15)
[2022-11-28] MEDS: SYMBICORT 160-4.5 MCG INHALER IH SCH (08:46)
[2022-11-28] MEDS ORDERED: ATIVAN PO PRN (08:50)
[2022-11-28] MEDS: HYDROCHLOROTHIAZIDE PO SCH (08:52)
[2022-11-28] MEDS: NON-FORMULARY MEDICATION (Fluticasone-Umeclidin-Vilanter [Trelegy Ellipta] 100-62.5-25 mcg IH SCH (09:12)
[2022-11-28 21:12] VITALS: TEMP 97.4
[2022-11-28] MEDS: LIPITOR PO SCH (21:15)
[2022-11-29 05:27] VITALS: BP 115/58
[2022-11-29 05:36] LABS: BASOPHILS % (AUTO) 0.3 % (0.0-3.0); EOSINOPHILS # (AUTO) 0.3 K/ul (0.0-0.7); EOSINOPHILS % (AUTO) 2.7 % (0.0-7.0); HEMATOCRIT 36.7 % (37.0-47.0); HEMOGLOBIN 11.2 g/dl (12.0-16.0); IMMATURE GRANULOCYTE # (AUTO) 0.1 (0.0-1.0); IMMATURE GRANULOCYTE % (AUTO) 0.4 % (0.0-5.0); LYMPHOCYTES # (AUTO) 2.8 K/uL (0.60-3.4); LYMPHOCYTES % (AUTO) 24.4 (10.0-50.0); MEAN CORPUSCULAR HEMOGLOBIN 27.9 pg (27.0-31.0); MEAN CORPUSCULAR HGB CONC 30.5 (31.8-35.4); MEAN CORPUSCULAR VOLUME 91.5 fl (81.0-99.0); MONOCYTES # (AUTO) 0.7 K/uL (0.4-2.0); NEUTROPHILS # (AUTO) 7.6 K/ul (2.0-6.9); NEUTROPHILS % (AUTO) 66.2 % (42.2-75.2); PLATELET COUNT 205 10^3/uL (140-440); RDW COEFFICIENT OF VARIATION 14.1 % (11.6-14.8); RED BLOOD COUNT 4.01 10^6/ul (4.20-5.40); WHITE BLOOD COUNT 11.46 K/ul (4.6-10.2)
[2022-11-29 05:55] LABS: ALANINE AMINOTRANSFERASE 12.7 U/L (0-35); ALBUMIN 3.2 g/dL (3.5-5.0); ALKALINE PHOSPHATASE 162.3 U/L (53-141); ASPARTATE AMINO TRANSFERASE 21.6 U/L (14-36); BILIRUBIN,TOTAL 0.26 mg/dL (0.2-1.3); BLOOD UREA NITROGEN 19.1 mg/dL (7-17); CALCIUM 8.37 mg/dL (8.4-10.2); CARBON DIOXIDE 29.1 mmol/L (22-30.0); CHLORIDE 104.3 mmol/L (98-107); CREATININE 0.73 mg/dL (0.60-1.30); GLUCOSE 141.4 mg/dL (74-106); POTASSIUM 3.92 mmol/L (3.5-5.1); SODIUM 136.2 mmol/L (134.5-145); TOTAL PROTEIN 6.38 g/dL (6.3-8.2)
[2022-11-29] MEDS ORDERED: GLUCOPHAGE PO SCH (09:00)
[2022-11-29] MEDS: HYDROCHLOROTHIAZIDE PO SCH (09:27)
[2022-11-29] MEDS: COZAAR PO SCH (09:28)
[2022-11-29] MEDS: ELIQUIS PO SCH (09:28)
[2022-11-29] MEDS: COREG PO SCH (09:28)
[2022-11-29] MEDS: TAMBOCOR PO SCH (09:28)
[2022-11-29] MEDS: NON-FORMULARY MEDICATION (Fluticasone-Umeclidin-Vilanter [Trelegy Ellipta] 100-62.5-25 mcg IH SCH (09:29)
[2022-11-29 09:40] LABS: BILIRUBIN,URINE Negative (NEGATIVE); CLARITY,URINE Clear (CLEAR); COLOR,URINE Yellow (YELLOW); GLUCOSE, URINE (UA) Negative (NEGATIVE); KETONES,URINE Negative (NEGATIVE); LEUKOCYTE ESTERASE ,URINE Trace (NEGATIVE); NITRITE,URINE Negative (NEGATIVE); PH,URINE 5.5 (5-9); PROTEIN,URINE Negative (NEGATIVE); URINE, BLOOD Trace-intact (NEGATIVE); UROBILINOGEN,URINE 0.2 (0.2)
[2022-11-29] MEDS ORDERED: LIDOCAINE HCL 1% SDV IM STA (09:55)
[2022-11-29] MEDS ORDERED: ROCEPHIN 1 GM VIAL IM ONE (09:55)
--- NOTE | 2022-11-29 11:02 | PCM.PROG ---
Attending Provider: ATTENDING PROVIDER: Dr. TEZ FREEMAN MD This patient is seen with Melissa Ann, Nurse Practitioner. DATE OF SERVICE: 11/29/22 SUBJECTIVE: This 71 year old /WHITE F was hospitalized 11/27/22. The patient is resting comfortably. She is eating well. Denies chest pain. She states she is ready to go home. She will have echo and PFT prior to discharge today. No chest pain since admission. Chest pain described as atypical in nature. REVIEW OF SYSTEMS: CONSTITUTIONAL: No night sweats. No fatigue, malaise, lethargy. No fever or chills. HEENT: Eyes: No visual changes. No eye pain. No eye discharge. ENT: No runny nose. No epistaxis. No sinus pain. No odynophagia. No congestion. RESPIRATORY: No cough, no congestion. No hemoptysis. No shortness of breath. CARDIOVASCULAR: No angina symptoms. No CHF symptoms. No atypical chest pain for CAD. No palpitations. No orthopnea.. GASTROINTESTINAL: No abdominal pain. No nausea or vomiting. No diarrhea or constipation. No hematemesis. No hematochezia. GENITOURINARY: No urgency. No frequency. No dysuria. No hematuria. No obstructive symptoms. No discharge. No pain. No significant abnormal bleeding. MUSCULOSKELETAL: No musculoskeletal pain; no joint swelling. NEUROLOGICAL: Awake, alert, oriented to time, place and person. No headache. No neck pain. No syncope. No seizures. No dizziness. PSYCHIATRIC: Not anxious. No depression. No suicidal thoughts. No homicidal thoughts. SKIN: No rash. No lesions. No wounds. ENDOCRINE: No unexplained weight loss. No weight gain. HEMATOLOGIC/LYMPHATIC: No anemia. No purpura. No petechiae. No prolonged or excessive bleeding. No palpable lymph nodes. PHYSICAL EXAMINATION: GENERAL: The patient is awake, alert and oriented, lying/sitting in bed in no distress. VITAL SIGNS: Temperature 97.4 F, Pulse 65, Respiratory Rate 18, BP 115/58, Pulse Ox 95% HEENT: Head normocephalic, atraumatic. Eyes: Extraocular muscles are intact. Pupils are equal, round and reactive to light and accommodation. Ears: No lesions. Nose appeared normal. Throat: No exudate or erythema. NECK: Supple. No JVD, no carotid bruit. No lymphadenopathy or thyromegaly. LUNGS: Diminished breath sounds. Clear to auscultation. Percussion note normal. Chest symmetrical. HEART: S1, S2, no S3. No murmurs. No cyanosis or clubbing. No ascites. Pulses: Dorsalis pedis and posterior tibial pulses +1 to +2 both sides. ABDOMEN: Soft. Non-tender. Bowel sounds active. No CVA tenderness. No mass felt. EXTREMITIES: Trace pedal edema. Full range of motion of all extremities, equal. NEUROLOGIC: No focal deficit. Cranial nerves II through XII are grossly intact. No headache. No double vision. SKIN: Not dry. Intact. Turgor-normal. LYMPHATIC: No palpable lymph nodes/no lymphedema. MUSCULOSKELETAL: Normal joints with no swelling. Muscle tone is normal. LAB REVIEW: 11/29/22 05:15 11/29/22 05:15 11/29/22 05:15: Sodium 136.2, Potassium 3.92, Chloride 104.3, Carbon Dioxide 29.1, Anion Gap 6.72, BUN 19.1 H, Creatinine 0.73, Estimated GFR (MDRD) 78.00, BUN/Creatinine Ratio 26.16, Glucose 141.4 H, Calcium 8.37 L, Total Bilirubin 0.26, AST 21.6, ALT 12.7, Alkaline Phosphatase 162.3 H, Total Protein 6.38, Albumin 3.20 L, Globulin 3.18, Albumin/Globulin Ratio 1.00 11/29/22 05:15: WBC 11.46 H, RBC 4.01 L, Hgb 11.2 L, Hct 36.7 L, MCV 91.5, MCH 27.9, MCHC 30.5 L, RDW Coeff of Vel 14.1, Plt Count 205, Immature Gran % (Auto) 0.4, Neut % (Auto) 66.2, Lymph % (Auto) 24.4, [place] % (Auto) 6.0, Eos % (Auto) 2.7, Baso % (Auto) 0.3, Neut # (Auto) 7.6 H, Lymph # (Auto) 2.8, [place] # (Auto) 0.7, Eos # (Auto) 0.3, Baso # (Auto) 0.0, Immature Gran # (Auto) 0.1 11/28/22 07:50: Sodium 137.3, Potassium 4.62, Chloride 103.1, Carbon Dioxide 28.4, Anion Gap 10.42, BUN 20.9 H, Creatinine 0.72, Estimated GFR (MDRD) 79.00, BUN/Creatinine Ratio 29.02, Glucose 164.8 H, Calcium 8.82, Total Bilirubin 0.48, AST 24.8, ALT 15.0, Alkaline Phosphatase 146.6 H, Total Creatine Kinase < 20.0 L , Troponin I < 0.012, Total Protein 7.12, Albumin 3.69, Globulin 3.43, Albumin/Globulin Ratio 1.07 ASSESSMENT: Please see below. 1. Atypical chest pain. 2. History of atrial fibrillation 3. Diabetes mellitus Type 2. 4. Hypertension. 5. Obesity. 6. Leukocytosis. PLAN: 1. Resume all home medications. 2. Anticipate discharge this afternoon. 3. PFT before discharge. 4. Echocardiogram to be done before discharge today. 5. UA - call Melissa if abnormal.. Plan and coordination of the patient's care discussed in the presence of [place] and nurse. CONDITION: Stable SCRIBED BY: Chelsi WHITAKERist scribed while in presence of service performed by Dr. Freeman/Melissa Ann APRN on 11/29/22 ([id number])
--- NOTE | 2022-11-29 14:22 | PN ---
DATE OF SERVICE: 11/27/22 SUBJECTIVE: 71 year old female came into the emergency room complaining of left sided pain precordial musculoskeletal type of pain that last for 5-10 minutes more on movement. She is on Eliquis and has atrial fib. Had work up with cardiac markers and were all negative for any event. Patient's work up was negative for embolism. Patient has normal cardiovascular status for now except for chest pain which seems to be atypical. Patient is going to be hospitalized and observed. She was given one dose of Toradol 50 mg with Decadron for musculoskeletal pain. Patient is otherwise stable. REVIEW OF SYSTEMS: CONSTITUTIONAL: No night sweats. No fatigue, malaise, lethargy. No fever or chills. HEENT: Eyes: No visual changes. No eye pain. No eye discharge. ENT: No runny nose. No epistaxis. No sinus pain. No sore throat. No odynophagia. No congestion. RESPIRATORY: No cough, no congestion. No hemoptysis. No shortness of breath. CARDIOVASCULAR: No angina symptoms. No CHF symptoms. No atypical chest pain for CAD. No palpitations. No PND. No orthopnea. GASTROINTESTINAL: No abdominal pain. No nausea or vomiting. No diarrhea or constipation. No hematemesis. No hematochezia. GENITOURINARY: No urgency. No frequency. No dysuria. No hematuria. No obstructive symptoms. No discharge. No pain. No significant abnormal bleeding. MUSCULOSKELETAL: No musculoskeletal pain; no joint swelling. NEUROLOGICAL: No headache. No neck pain. No syncope. No seizures. No dizziness. PSYCHIATRIC: Not anxious. No depression. No suicidal thoughts. No homicidal thoughts. SKIN: No rash. No lesions. No wounds. ENDOCRINE: No unexplained weight loss. No weight gain. HEMATOLOGIC/LYMPHATIC: No anemia. No purpura. No petechiae. No prolonged or excessive bleeding. No palpable lymph nodes. PHYSICAL EXAMINATION: GENERAL: The patient is in no distress. HEENT: Head normocephalic, atraumatic. Eyes: Extraocular muscles are intact. Pupils are equal, round and reactive to light and accommodation. Ears: No lesions. Nose appeared normal. Throat: No exudate or erythema. NECK: Supple. No JVD, no carotid bruit. No lymphadenopathy or thyromegaly. LUNGS: Clear to auscultation. Percussion note normal. Chest symmetrical. HEART: S1, S2, no S3. No murmurs. No cyanosis or clubbing. No ascites. Pulses: Dorsalis pedis and posterior tibial pulses +1 to +2 bilaterally. ABDOMEN: Soft. Nontender. Bowel sounds active. No CVA tenderness. No mass felt. EXTREMITIES: No edema. Full range of motion of all extremities, equal. NEUROLOGIC: No focal deficit. Cranial nerves II through XII are grossly intact. No headache. No double vision. SKIN: Not dry. Intact. Turgor - normal. LYMPHATIC: No palpable lymph nodes/no lymphedema. MUSCULOSKELETAL: Normal joints with no swelling. Muscle tone is normal TIME SPENT: More than 30 minutes. Plan and coordination of the patient's care discussed in the presence of nurse. JONATHAN
--- NOTE | 2022-11-29 16:10 | PN ---
DATE OF SERVICE: 11/28/22 SUBJECTIVE: 71 year old white female hospitalized with chest pain which was fairly atypical. The chest pain has practically subsided. REVIEW OF SYSTEMS: CONSTITUTIONAL: No night sweats. No fatigue, malaise, lethargy. No fever or chills. HEENT: Eyes: No visual changes. No eye pain. No eye discharge. ENT: No runny nose. No epistaxis. No sinus pain. No sore throat. No odynophagia. No congestion. RESPIRATORY: No cough, no congestion. No hemoptysis. No shortness of breath. CARDIOVASCULAR: No angina symptoms. No CHF symptoms. No atypical chest pain for CAD. No palpitations. No PND. No orthopnea. GASTROINTESTINAL: No abdominal pain. No nausea or vomiting. No diarrhea or constipation. No hematemesis. No hematochezia. GENITOURINARY: No urgency. No frequency. No dysuria. No hematuria. No obstructive symptoms. No discharge. No pain. No significant abnormal bleeding. MUSCULOSKELETAL: No musculoskeletal pain; no joint swelling. NEUROLOGICAL: No headache. No neck pain. No syncope. No seizures. No dizziness. PSYCHIATRIC: Not anxious. No depression. No suicidal thoughts. No homicidal thoughts. SKIN: No rash. No lesions. No wounds. ENDOCRINE: No unexplained weight loss. No weight gain. HEMATOLOGIC/LYMPHATIC: No anemia. No purpura. No petechiae. No prolonged or excessive bleeding. No palpable lymph nodes. PHYSICAL EXAMINATION: GENERAL: The patient is in no distress. VITAL SIGNS: Temperature 97, pulse 82, respiratory rate 18, blood pressure 130/75, pulse ox 96% HEENT: Head normocephalic, atraumatic. Eyes: Extraocular muscles are intact. Pupils are equal, round and reactive to light and accommodation. Ears: No lesions. Nose appeared normal. Throat: No exudate or erythema. NECK: Supple. No JVD, no carotid bruit. No lymphadenopathy or thyromegaly. LUNGS: Clear to auscultation. Percussion note normal. Chest symmetrical. HEART: S1, S2, no S3. No murmurs. No cyanosis or clubbing. No ascites. Pulses: Dorsalis pedis and posterior tibial pulses +1 to +2 bilaterally. ABDOMEN: Soft. Nontender. Bowel sounds active. No CVA tenderness. No mass felt. EXTREMITIES: No edema. Full range of motion of all extremities, equal. NEUROLOGIC: No focal deficit. Cranial nerves II through XII are grossly intact. No headache. No double vision. SKIN: Not dry. Intact. Turgor - normal. LYMPHATIC: No palpable lymph nodes/no lymphedema. MUSCULOSKELETAL: Normal joints with no swelling. Muscle tone is normal. LABS: Hemoglobin 12.2, hematocrit 39, WBC 12,000, normal differential, creatinine 0.7, BUN 20 EKG unchanged, cardiac markers negative. Troponin negative. ASSESSMENT: Chest pain, likely pleuritic - subsided Atrial fib Chronic lung disease Plan: Echocardiogram Tomorrow patient is going to be discharged home TIME SPENT: More than 30 minutes. Plan and coordination of the patient's care discussed in the presence of nurse. JONATHAN
--- NOTE | 2022-11-30 14:28 | HP ---
DATE OF SERVICE: 11/27/22 REASON FOR HOSPITALIZATION: Chest pain. HISTORY OF PRESENT ILLNESS: 71-year-old white female was brought to the emergency room with left-sided chest pain which was sharp, dull ache for 15 minutes with maybe questionable shortness of breath. The pain was more on deep breathing and sneezing. The patient's pain was very uncomfortable. PAST MEDICAL HISTORY: Atrial fibrillation Chronic lung disease Dyslipidemia Hypertension Diabetes mellitus REVIEW OF SYSTEMS: CONSTITUTIONAL: No weakness. No night sweats. No fatigue, malaise, lethargy. No fever or chills. HEENT: Eyes: No visual changes. No eye pain. No eye discharge. ENT: No runny nose. No epistaxis. No sinus pain. No sore throat. No odynophagia. No ear pain. No congestion. RESPIRATORY: No cough, no congestion. No hemoptysis. No shortness of breath. CARDIOVASCULAR: Chest pain seems to be localized precordial area on deep breathing. No exertional chest discomfort. No CHF symptoms. No palpitations. No PND. No orthopnea. GASTROINTESTINAL: No abdominal pain. No nausea or vomiting. No diarrhea or constipation. No hematemesis. No hematochezia. GENITOURINARY: No urgency. No frequency. No dysuria. No hematuria. No obstructive symptoms. No discharge. No pain. No significant abnormal bleeding. MUSCULOSKELETAL: No musculoskeletal pain. No joint swelling. No arthritis. NEUROLOGICAL: No headache. No neck pain. No syncope. No seizures. No dizziness. PSYCHIATRIC: Not anxious. No depression. No suicidal thoughts. No homicidal thoughts. SKIN: No rash. No lesions. No wounds. ENDOCRINE: No unexplained weight loss. No weight gain. HEMATOLOGIC/LYMPHATIC: No anemia. No purpura. No petechiae. No prolonged or excessive bleeding. No palpable lymph nodes. PERSONAL/FAMILY/SOCIAL HISTORY: The patient is living by herself with her son helping. She does all activities of daily living. She drives a car. Nonsmoker. No alcohol abuse. MEDICATIONS: Nitroglycerin Lorazepam Apixaban Atorvastatin Flecanide Hydrocodone Carvedilol Losartan Hydrochlorothiazide Metformin Albuterol inhaler Nebs Prednisone 10 mg daily on 11/27/22 ALLERGIES: MORPHINE PHYSICAL EXAMINATION: GENERAL: The patient is oriented to time, place and person in no distress. VITAL SIGNS: Temperature 97, pulse 82, respiratory rate 18, BP 140/75, pulse ox 96% on room air. HEENT: Head normocephalic, atraumatic. Eyes: Extraocular muscles are intact. Pupils are equal, round and reactive to light and accommodation. Ears: No lesions. Nose appeared normal. Throat: No exudate or erythema. NECK: Supple. No JVD, no carotid bruit. No lymphadenopathy or thyromegaly. LUNGS: Clear to auscultation. Percussion note normal. Chest symmetrical. HEART: S1, S2, no S3. No murmur. No cyanosis or clubbing. No ascites. Pulses: Dorsalis pedis and posterior tibial pulses +1 to +2 bilaterally. ABDOMEN: Soft. Nontender. Bowel sounds active. No CVA tenderness. No mass felt. EXTREMITIES: No edema. Full range of motion of all extremities, equal. NEUROLOGIC: No focal deficit. Cranial nerves II through XII are grossly intact. No headache, no double vision or headache. SKIN: Not dry. Intact. Turgor - normal. LYMPHATIC: No palpable lymph nodes/no lymphedema. MUSCULOSKELETAL: Normal joints with no swelling. Muscle tone is normal. LABS: Hemoglobin 12.2, hematocrit 39, WBC 12,000, BUN 20, creatinine 0.7, potassium 4.6. Cardiac markers negative. EKG atrial fibrillation/flutter. D. dimer 438 borderline. ASSESSMENT: 1. Chest pain seems to be noncardiac atypical but the patient has multiple risk factors for coronary artery disease like diabetes, hypertension, dyslipidemia, BMI of 37. 2. Also has atrial fibrillation/flutter. 3. Chronic lung disease. PLAN: 1. Admit the patient. 2. Give Toradol 15 IV along with Decadron. 3. Continue the rest of the medications as before. 4. Routine telemetry orders which will assure us to have serial cardiac markers, EKGs and seems to be stable. TIME SPENT: More than 70 minutes. [facility]
--- NOTE | 2022-12-02 07:38 | ECHO2D ---
Date of Exam: 11/29/2022 Ordering Physician: DR. TEZ FREEMAN Room #: [id number] Reason for Echo: CHEST PAIN M-Mode Normal Adult Results LV Dimensions Normal Adult Results AoV Opening excursions >1.6 >1.6 LVEDD-base- 3.5-5.8 5.2 Ao root dimensions 2.0-3.7 3.2 LVESD-base- 3.1-4.6 L. Atrium dimensions 1.9-3.8 5.2 Post. Wall thickness 0.8-1.1 1.2 IV septum (thickness) 0.7-1.2 1.2 Post. Wall excursion 0.72-1.3 NORMAL Septal motion NORMAL Systolic motion R. Ventricular cavity 1.5-2.0 3.5 LVEF 60% 52% Paradoxical septal wall motion NORMAL 2-D : ENLARGED LEFT ATRIAL CAVITY--ENLARGED RIGHT VENTRICLE CAVITY--LEFT VENTRICLE CONTRACTILITY NORMAL, NORMAL VALVES--NO EFFUSION, NO THROMBUS COLOR FLOW: MILD MITRAL REGURGITATION M-MODE: MV: NORMAL AV: NORMAL TV: NORMAL PV: CHAMBER SIZE: ENLARGED RIGHT ATRIAL AND RIGHT VENTRICLE CAVITIES WALL MOTION: NORMAL PERICARDIUM: NORMAL INTERPRETATION: 1. LEFT VENTRICLE HYPERTROPHY WITH ENLARGED LEFT ATRIAL CAVITY 2. ENLARGED RIGHT VENTRICLE CAVITY 3. NORMAL VALVES 4. NORMAL LEFT VENTRICLE CONTRACTILITY MTDD
--- NOTE | 2022-12-03 15:08 | PN ---
DATE OF SERVICE: 11/29/22 SUBJECTIVE: Patient was seen and examined with the nurse practitioner. She was admitted with left sided pain. An echo was done. Patient's PFT showed severe chronic lung disease. Patient is going to be asked to go for pulmonary rehab. Patient's condition is otherwise stable. REVIEW OF SYSTEMS: CONSTITUTIONAL: No night sweats. No fatigue, malaise, lethargy. No fever or chills. HEENT: Eyes: No visual changes. No eye pain. No eye discharge. ENT: No runny nose. No epistaxis. No sinus pain. No sore throat. No odynophagia. No congestion. RESPIRATORY: No cough, no congestion. No hemoptysis. No shortness of breath. CARDIOVASCULAR: No angina symptoms. No CHF symptoms. No atypical chest pain for CAD. No palpitations. No PND. No orthopnea. GASTROINTESTINAL: No abdominal pain. No nausea or vomiting. No diarrhea or constipation. No hematemesis. No hematochezia. GENITOURINARY: No urgency. No frequency. No dysuria. No hematuria. No obstructive symptoms. No discharge. No pain. No significant abnormal bleeding. MUSCULOSKELETAL: No musculoskeletal pain; no joint swelling. NEUROLOGICAL: No headache. No neck pain. No syncope. No seizures. No dizziness. PSYCHIATRIC: Not anxious. No depression. No suicidal thoughts. No homicidal thoughts. SKIN: No rash. No lesions. No wounds. ENDOCRINE: No unexplained weight loss. No weight gain. HEMATOLOGIC/LYMPHATIC: No anemia. No purpura. No petechiae. No prolonged or excessive bleeding. No palpable lymph nodes. PHYSICAL EXAMINATION: GENERAL: The patient is in no distress. VITAL SIGNS: HEENT: Head normocephalic, atraumatic. Eyes: Extraocular muscles are intact. Pupils are equal, round and reactive to light and accommodation. Ears: No lesions. Nose appeared normal. Throat: No exudate or erythema. NECK: Supple. No JVD, no carotid bruit. No lymphadenopathy or thyromegaly. LUNGS: Clear to auscultation. Percussion note normal. Chest symmetrical. HEART: S1, S2, no S3. No murmurs. No cyanosis or clubbing. No ascites. Pulses: Dorsalis pedis and posterior tibial pulses +1 to +2 bilaterally. ABDOMEN: Soft. Nontender. Bowel sounds active. No CVA tenderness. No mass felt. EXTREMITIES: No edema. Full range of motion of all extremities, equal. NEUROLOGIC: No focal deficit. Cranial nerves II through XII are grossly intact. No headache. No double vision. SKIN: Not dry. Intact. Turgor - normal. LYMPHATIC: No palpable lymph nodes/no lymphedema. MUSCULOSKELETAL: Normal joints with no swelling. Muscle tone is normal. TIME SPENT: More than 30 minutes. Plan and coordination of the patient's care discussed in the presence of nurse. JONATHAN
--- NOTE | 2022-12-03 15:10 | PN ---
11/27/22 LEVEL 5 11/28/22 INTERMEDIATE 11/29/22 DISCHARGE MTDD
--- NOTE | 2023-01-19 08:29 | DS ---
DATE OF SERVICE: 11/29/22 FINAL DIAGNOSIS: 1. Atypical chest pain 2. History of atrial fibrillation 3. Diabetes Mellitus type II 4. Hypertension 5. Obesity 6. Leukocytosis DISCHARGE INSTRUCTIONS: Discharge home. Resume all of your normal home medications. Followup with Dr. Mcleod's office December 13 at 11:45am. If experience a new onset of symptoms, or if your chest pain returns please contact provider or seek emergent medical attention. MEDICATIONS AT DISCHARGE: Nitroglycerin Lorazepam Apixaban Atorvastatin Flecainide Hydrocodone Carvedilol Losartan Hydrochlorothiazide Metformin Albuterol inhaler Nebs Prednisone 10 mg daily on 11/27/22 DIET INSTRUCTIONS: Normal diet. ACTIVITY: Normal activity HOSPITAL COURSE: This is a 72 year old female who presented through the emergency room, complaining of mild shortness of breath and sharp pain to the left side of the chest. She has not had any chest pain since admission. All cardiac enzymes are negative. She does have a history of atrial fibrillation. I do believe it was more related to muscular pain. She did not have any chest pain after admission. She was given IV Toradol along with Decadron IM for musculoskeletal pain again since has resolved. Echo was done prior to discharge due to history of atrial fibrillation. PFT was done showing severe chronic lung disease. We are going to recommend pulmonary rehab here at the hospital. She is to resume all of her home medications and nothing has been changed. We will follow closely and followup in the office. TIME SPENT: 70 minutes JONATHAN
== END 2022-11-29 13:05 | disposition home or self-care (01) | DRG 313 ==
LOC: ED 16:50 → MEDSURG A 18:11
PROVIDERS: ADMIT Internal Medicine; ATTEND Internal Medicine
DX: Z79.811 Long term (current) use of aromatase inhibitors; Z72.3 Lack of physical exercise; E11.9 Type 2 diabetes mellitus without complications; R06.02 Shortness of breath; E03.9 Hypothyroidism, unspecified; D72.829 Elevated white blood cell count, unspecified; E66.9 Obesity, unspecified; Z68.30 Body mass index [BMI] 30.0-30.9, adult; I50.9 Heart failure, unspecified; I42.9 Cardiomyopathy, unspecified; I10 Essential (primary) hypertension; Z79.01 Long term (current) use of anticoagulants; J44.9 Chronic obstructive pulmonary disease, unspecified; Z20.822 Contact with and (suspected) exposure to COVID-19; Z79.899 Other long term (current) drug therapy; I48.91 Unspecified atrial fibrillation; H90.3 Sensorineural hearing loss, bilateral; F41.9 Anxiety disorder, unspecified; R07.89 Other chest pain; E78.5 Hyperlipidemia, unspecified